=== PATIENT | female | born 1960 | race Caucasian/White ===

== ENCOUNTER 2017-02-24 22:38 | Emergency (ER) | payer MEDICAID ==
[~2017-02-24] VITALS: Ht 170.2 cm; Wt 84.4 kg
[~2017-02-24 22:38] MED LIST: ALB18R INH; ALB6.7R INH; ALBU2.5V36 INH; AMLO-5 PO; AMLO-98 PO; AMLO-99 PO; ASPI81TA94 PO; ATOR20TA22 PO; ATOR20TA65 PO; AZIT1PAC21 PO; CEF300 PO; CHOL500050 PO; CLIN300C99 PO; DIA2 PO; DIAZ2TAB74 PO; DILT120C72 PO; DOXY-179 PO; ENA10 PO; ERYT400T73 PO; FERR325C2 PO; FERR325T24 PO; FLUC150T40 PO; GLIM1TAB25 PO; HYDR-385 PO; KET10 PO; LEV125 PO; LEVO-3 PO; LEVO-317 PO; LEVO100T95 PO; LEVO137T23 PO; LEVO150T78 PO; MET500 PO; OMEP-153 PO; OXYGENHOME INH; PER PO; SITA100T PO; SITA100T9 PO; SITA1TAB17 PO; SITA1TBM PO; SITA25TA PO; TELM80TA5 PO; TIO18R INH
[2017-02-24] MEDS ORDERED: ESCI20TA38 PO (22:48)
--- NOTE | 2017-02-24 22:51 | ER Report ---
History and Physical Time Seen By MD: 22:50 Hx. of Stated Complaint: PT REPORTS HAVING A HEARTBURN SENSATION. HAS LONG HISTORY OF ANXIETY CAUSING HER ISSUES. JUST STARTED ON LEXAPRO YESTERDAY. HPI/ROS CHIEF COMPLAINT: chest pressure that feels like reflux, came on after becoming anxious HISTORY OF PRESENT ILLNESS: This is a 56 year old female. She is here because of feeling of lower chest pain that feels like anxiety and reflux. History of severe anxiety, worse in the evenings. Similar tonight, started having panic attack and anxiety. Has just been started on Lexapro. Tried some valium which did not help. Then started getting reflux and chest pressure. This is a typical progression of symptoms for her. Mild shortness of breath with all of this. No nausea. No recent illness. She used to take Nexium, but does not have any at this time. REVIEW OF SYSTEMS: Constitutional: No fever or chills. Eyes: No vision changes. ENT: No sore throat. No congestion. Cardiovascular: As above. No palpitations. Respiratory: As above. Gastrointestinal: No abdominal pain. No change in bowels Genitourinary: No dysuria. No changes in urination. Neurological: No dizziness. Allergies: Coded Allergies: Penicillins (Verified Allergy, Intermediate, HIVES, 02/24/17) oxycodone HCl (Verified Allergy, Mild, FELT SHE WAS GOING BLIND, 02/24/17) Sulfa (Sulfonamide Antibiotics) (Verified Allergy, Unknown, 02/24/17) doxycycline (Verified Allergy, Unknown, increased icp, 02/24/17) ketorolac tromethamine (Verified Adverse Reaction, Unknown, FELT BAD, DIFFICULTY SEEING, 02/24/17) Uncoded Allergies: ARTIFICIAL SWEETNERS (Allergy, Severe, MIGRAINES, 11/18/12) due to neurologist instructions ANTIDEPRESSANTS (Adverse Reaction, Intermediate, STRANGE BEHAVIOR, 11/18/12) STEROIDS (Adverse Reaction, Mild, CANNOT TAKE DUE TO HER PSEUDO TUMOR CEREBRI, 05/18/12) Home Meds Active Scripts Ranitidine Hcl (RANITIDINE HCL) 150 Mg Tablet, 150 MG PO BID, #60 TAB 0 Refills Prov:ALVIN SMYTH MD 02/24/17 Atorvastatin Calcium (ATORVASTATIN CALCIUM) 20 Mg Tablet, 1 TAB PO QDAY, #90 TAB 1 Refill Prov:PRESLEY BARTLETT MD 09/24/16 Sitagliptin Phosphate (JANUVIA) 25 Mg Tablet, 25 MG PO QDAY, #30 TAB 4 Refills Prov:PRESLEY BARTLETT MD 09/24/16 Cholecalciferol (Vitamin D3) (VITAMIN D3) 50,000 Unit Capsule, 20446 UNIT PO QWEEK, #12 CAPSULE 3 Refills Prov:PRESLEY BARTLETT MD 09/18/16 Diazepam (DIAZEPAM) 2 Mg Tablet, 2 MG PO QDAY Y for anxiety, #30 TAB 1 Refill Prov:PRESLEY BARTLETT MD 09/10/16 Amlodipine Besylate (AMLODIPINE BESYLATE) 10 Mg Tablet, 1 TAB PO QDAY, #90 TAB 3 Refills Prov:PRESLEY BARTLETT MD 06/25/16 Telmisartan (MICARDIS) 80 Mg Tablet, 80 MG PO QDAY, #90 TAB 3 Refills Prov:PRESLEY BARTLETT MD 06/25/16 Oxygen (OXYGEN) Inha, 2 L INH QDAY, #2 L Lenght of need: 99 months portable oxygen oxygen concentrator Prov:KYM HILARIO APRN [employer] 03/29/15 Reported Medications Escitalopram Oxalate (LEXAPRO) 20 Mg Tablet, 20 MG PO QDAY, TAB 02/24/17 Levothyroxine Sodium (LEVOTHYROXINE SODIUM) 100 Mcg Tablet, 125 MCG PO QDAY, TAB 01/06/17 Aspirin (ASPIRIN) 81 Mg Tab.chew, 81 MG PO QDAY, TAB.CHEW TAKE 1 TABLET BY MOUTH EVERY DAY 08/17/13 Discontinued Scripts Doxycycline Hyclate (DOXYCYCLINE HYCLATE) 100 Mg Tablet, 100 MG PO BID, #14 TAB Prov:ANGELA DIAZ UPSETTER SETTER UP 01/22/17 Albuterol Sulfate (VENTOLIN HFA) 18 Gm Inh, 2 PUFF INH Q6H Y for SHORTNESS OF BREATH, #1 INH 6 Refills Prov:PRESLEY BARTLETT MD 06/26/16 Albuterol Sulfate 0.083% (ALBUTEROL SULFATE 0.083%) 2.5 Mg/3 Ml Vial.neb, 2.5 MG INH QID Y for SHORTNESS OF BREATH, #100 INH 3 Refills Prov:PRESLEY BARTLETT MD 04/02/16 Reviewed Nurses Notes: Yes Smoking Status: Current: Every Day Smoker Hx Substance Use Disorder: No Hx Alcohol Use: No Constitutional Vital Sign - Last 24 Hours 02/24/17 02/24/17 02/24/17 02/24/17 22:45 22:45 23:00 23:15 Temp 98.5 Pulse 92 99 79 73 Resp 8 9 25 11 B/P (MAP) 175/87 137/76 (96) Pulse Ox 93 93 93 93 O2 Delivery Nasal Cannula 02/24/17 23:30 Pulse 71 Resp 13 B/P (MAP) 127/71 (89) Pulse Ox 91 Physical Exam General Appearance: The patient is alert. No acute distress. Eyes: Pupils are equal, round. No pallor, injection or icterus. ENT: Mucous membranes are moist. Normal oral mucosa. Posterior oropharynx is normal. Neck: Supple and non tender. No lymphadenopathy. Respiratory: Lungs are clear to auscultation. Cardiovascular: Regular rate and rhythm. No murmurs, gallops or rubs. Normal capillary refill. Gastrointestinal: Abdomen is soft and non tender. Nondistended. Normal active bowel sounds. Neurological: Alert and oriented x3. Skin: Warm and dry. Musculoskeletal: Extremities are nontender. No tenderness in palpation of the cervical, thoracic and lumbar spine. DIFFERENTIAL DIAGNOSIS: After history and physical exam, differential diagnosis was considered for chest pain including but not limited to myocardial ischemia, chest wall pain, pleural inflammation and pulmonary infectious causes. Although likely panic attack/anxiety followed by reflux which is her typical symptomatology. Medical Decision Making Data Points Result Diagram: 02/24/17 22502/24/17 2250 Laboratory Hematology Test 02/24/17 22:50 Red Blood Count 4.66 M/uL (4.17-5.56) Mean Corpuscular Volume 85.8 fL (80.0-96.0) Mean Corpuscular Hemoglobin 28.3 pg (26.0-33.0) Mean Corpuscular Hemoglobin Concent 33.0 g/dL (32.0-36.0) Red Cell Distribution Width 15.1 % (11.5-14.5) Mean Platelet Volume 7.0 fL (7.2-11.1) Neutrophils (%) (Auto) 70.0 % (39.4-72.5) Lymphocytes (%) (Auto) 20.7 % (17.6-49.6) Monocytes (%) (Auto) 4.7 % (4.1-12.4) Eosinophils (%) (Auto) 3.3 % (0.4-6.7) Basophils (%) (Auto) 1.3 % (0.3-1.4) Nucleated RBC Relative Count (auto) 0.0 /100WBC Neutrophils # (Auto) 7.8 K/uL (2.0-7.4) Lymphocytes # (Auto) 2.3 K/uL (1.3-3.6) Monocytes # (Auto) 0.5 K/uL (0.3-1.0) Eosinophils # (Auto) 0.4 K/uL (0.0-0.5) Basophils # (Auto) 0.1 K/uL (0.0-0.1) Nucleated RBC Absolute Count (auto) 0.00 K/uL Peripheral Blood Smear No Y/N Sodium Level 135 mmol/L (137-145) Potassium Level 3.4 mmol/L (3.5-5.0) Chloride Level 96 mmol/L (98-107) Carbon Dioxide Level 28 mmol/L (22-31) Blood Urea Nitrogen 15 mg/dl (7-18) Creatinine 2.00 mg/dl (0.52-1.04) Glomerular Filtration Rate Calc 26.0 Random Glucose 168 mg/dl (75-110) Calcium Level 10.6 mg/dl (8.4-10.2) Total Bilirubin 0.5 mg/dl (0.2-1.3) Aspartate Amino Transf (AST/SGOT) 12 U/L (0-35) Alanine Aminotransferase (ALT/SGPT) 27 U/L (0-56) Alkaline Phosphatase 102 U/L (0-126) Troponin I < 0.012 ng/ml Total Protein 8.2 gm/dl (6.3-8.2) Albumin 4.3 g/dl (3.5-5.0) Chemistry Test 02/24/17 22:50 White Blood Count 11.1 k/uL (4.5-11.0) Red Blood Count 4.66 M/uL (4.17-5.56) Hemoglobin 13.2 g/dL (12.0-16.0) Hematocrit 40.0 % (34.0-47.0) Mean Corpuscular Volume 85.8 fL (80.0-96.0) Mean Corpuscular Hemoglobin 28.3 pg (26.0-33.0) Mean Corpuscular Hemoglobin Concent 33.0 g/dL (32.0-36.0) Red Cell Distribution Width 15.1 % (11.5-14.5) Platelet Count 431 K/uL (150-450) Mean Platelet Volume 7.0 fL (7.2-11.1) Neutrophils (%) (Auto) 70.0 % (39.4-72.5) Lymphocytes (%) (Auto) 20.7 % (17.6-49.6) Monocytes (%) (Auto) 4.7 % (4.1-12.4) Eosinophils (%) (Auto) 3.3 % (0.4-6.7) Basophils (%) (Auto) 1.3 % (0.3-1.4) Nucleated RBC Relative Count (auto) 0.0 /100WBC Neutrophils # (Auto) 7.8 K/uL (2.0-7.4) Lymphocytes # (Auto) 2.3 K/uL (1.3-3.6) Monocytes # (Auto) 0.5 K/uL (0.3-1.0) Eosinophils # (Auto) 0.4 K/uL (0.0-0.5) Basophils # (Auto) 0.1 K/uL (0.0-0.1) Nucleated RBC Absolute Count (auto) 0.00 K/uL Peripheral Blood Smear No Y/N Glomerular Filtration Rate Calc 26.0 Calcium Level 10.6 mg/dl (8.4-10.2) Total Bilirubin 0.5 mg/dl (0.2-1.3) Aspartate Amino Transf (AST/SGOT) 12 U/L (0-35) Alanine Aminotransferase (ALT/SGPT) 27 U/L (0-56) Alkaline Phosphatase 102 U/L (0-126) Troponin I < 0.012 ng/ml Total Protein 8.2 gm/dl (6.3-8.2) Albumin 4.3 g/dl (3.5-5.0) EKG/Imaging EKG Interpretation 12 lead EKG: Rhythm: normal sinus rhythm [place]: normal QRS: normal ST segments: normal Imaging CHEST SINGLE AP 02/24/2017 22:55 hours. HISTORY: Heartburn since 1600 and anxiety attack. History of COPD. Wears 3 L of oxygen at home. COMPARISON: 01/06/2017 and studies dating to 05/23/2009. TECHNIQUE: Portable AP view of the chest. FINDINGS: Tubes/lines/hardware: There are external chest leads. Pulmonary: There is linear atelectasis or scarring at the left mid and lower lung, unchanged. Right lung is clear. There is no pneumothorax or pleural effusion. Cardiomediastinal: Cardiac and mediastinal silhouettes are within normal limits. Bones/soft tissues: No acute osseous abnormality. The visible abdomen is normal. IMPRESSION: 1. Stable chest without acute process. Report Dictated By: Alessia Muro at 02/24/2017 11:28 PM ED Course/Re-evaluation Clinical Indication for ER IV: IV Access ED Course After the initial evaluation, this sounds like reflux and anxiety which is chronic for her. We did do an EKG which did not show any acute abnormalities. Chest x-ray was normal. Gave her Protonix and some Maalox as well as some aspirin. Symptoms seem to be improving until we started talking about results and she started to get anxious again. Recommended she continue on antacids but will try Zantac. Recommended follow-up with her primary care doctor. She will continue her Lexapro. I discussed having her starting doing some cognitive behavioral therapy to help with the anxiety and panic disorders and she will talk to her doctor about this. Decision to Disposition Date: Feb 24, 2017 Decision to Disposition Time: 23:50 Depart Departure Latest Vital Signs Vital Signs Date Time Temp Pulse Resp B/P (MAP) Pulse Ox O2 Delivery O2 Flow Rate FiO2 02/24/17 23:30 71 13 127/71 (89) 91 02/24/17 22:45 98.5 Nasal Cannula Impression: Primary Impression: Anxiety Additional Impression: GERD (gastroesophageal reflux disease) Condition: Improved Disposition: HOME OR SELF-CARE Referrals: JB JASMINE DO (PCP) New Scripts Ranitidine Hcl (RANITIDINE HCL) 150 Mg Tablet 150 MG PO BID, #60 TAB 0 Refills Prov: ALVIN SMYTH MD 02/24/17 Patient Instructions: Anxiety (ED), Gastroesophageal Reflux Disease (ED) Additional Instructions: Keep taking your Lexapro. Consider getting set up to do Cognitive Behavioral Therapy to help with your anxiety. For reflux, start Ranitidine (Zantac) 150mg twice a day. Follow-up with primary care for re-evaluation. Problem Qualifiers Additional Impression: GERD (gastroesophageal reflux disease) Esophagitis presence: esophagitis presence not specified Qualified Codes: K21.9 - Gastro-esophageal reflux disease without esophagitis ALVIN SMYTH MD Feb 24, 2017 22:51
[2017-02-24] MEDS ORDERED: MAG HYD/AL HYD/SIMETH 30ML UDC PO ONE (22:55)
[2017-02-24] MEDS ORDERED: ASPIRIN 81 MG CHEW PO ONE (22:55)
[2017-02-24] MEDS ORDERED: PANTOPRAZOLE SOD 40 MG IV VIAL IVP ONE (22:55)
[2017-02-24 23:03] LABS: PLATELET COUNT, AUTOMATED 431 K/uL (150-450)
[2017-02-24 23:30] VITALS: BP 127/71
--- NOTE | 2017-02-24 23:34 | RADIOLOGY IMAGING REPORT ---
FACILITY: [facility] PATIENT NAME: Malu Mora : 1960 MR: [id number] V: [id number] EXAM DATE: ORDERING PHYSICIAN: ALVIN SMYTH TECHNOLOGIST: Location: [facility] - [place] Patient: Malu Mora : 1960 Visit/Account:[id number] Date of Sevice: 02/24/2017 CHEST SINGLE AP 02/24/2017 22:55 hours. HISTORY: Heartburn since 1600 and anxiety attack. History of COPD. Wears 3 L of oxygen at home. COMPARISON: 01/06/2017 and studies dating to 05/23/2009. TECHNIQUE: Portable AP view of the chest. FINDINGS: Tubes/lines/hardware: There are external chest leads. Pulmonary: There is linear atelectasis or scarring at the left mid and lower lung, unchanged. Right l pankaj is clear. There is no pneumothorax or pleural effusion. Cardiomediastinal: Cardiac and mediastinal silhouettes are within normal limits. Bones/soft tissues: No acute osseous abnormality. The visible abdomen is normal. IMPRESSION: 1. Stable chest without acute process. Report Dictated By: Alessia Muro at 02/24/2017 11:28 PM Report E-Signed By: Alessia Muro at 02/24/2017 11:30 PM WSN:[id number]
[2017-02-24] MEDS ORDERED: RANI-318 PO (23:52)
--- NOTE | 2017-02-25 00:43 | EKG ---
FACILITY: [facility] - [place] PATIENT NAME: BETTY CALDERON : [id number] MR: [id number] V: [id number] EXAM DATE: ORDERING PHYSICIAN: ALVIN SMYTH TECHNOLOGIST: ROSITA Wilson Reason : CARDIAC Blood Pressure : / mmHG Vent. Rate : 085 BPM Atrial Rate : 085 BPM P-R Int : 190 ms QRS Dur : 104 ms QT Int : 408 ms P-R-T Axes : 066 066 061 degrees QTc Int : 485 ms Normal sinus rhythm Cannot rule out Anterior infarct , age undetermined Abnormal ECG When compared with ECG of 06-JAN-2017 18:08, Nonspecific T wave abnormality no longer evident in Lateral leads Confirmed by BLAYNE WEBER ([id number]) on 02/26/2017 1:20:39 AM Referred By: Confirmed By:BLAYNE WEBER
== END 2017-02-25 00:02 | disposition home or self-care (01) ==
LOC: ER 22:49
DX: F41.9 Anxiety disorder, unspecified (principal); K21.9 Gastro-esophageal reflux disease without esophagitis; R06.02 Shortness of breath
CPT/HCPCS: 71010; 84484; 85025; 90471; 93005; 99284; C9113; 82040; 82247; 82310; 82374; 82435; 82565; 82947; 84075; 84132; 84155; 84295; 84450; 84460; 84520

== ENCOUNTER 2017-03-04 16:51 | Emergency (ER) | payer MEDICAID ==
[~2017-03-04] VITALS: Ht 170.2 cm; Wt 82.1 kg
[~2017-03-04 16:51] MED LIST changes: -POTA20TA85 PO
--- NOTE | 2017-03-04 17:17 | ER Report ---
History and Physical Time Seen By MD: 17:16 Hx. of Stated Complaint: PT SENT HERE FROM DR'S OFFICE WITH POTASSIUM PROBLEM. HPI/ROS CHIEF COMPLAINT: Hypokalemia HISTORY OF PRESENT ILLNESS: 56-year-old female patient presents to emergency room with complaint of hypokalemia. Patient states that she had her lab work done earlier today and was called by her doctor's office just a few minutes prior to arrival that her know that her potassium is low. They wanted her to be evaluated for this. Patient states that she was called by her entry level mechanical engineer office. Patient states she's been feeling fine. She is overly concerned because they told her that this could be life-threatening. Patient states that she is feeling some chest pressure now she is in the emergency room. She denies any nausea, vomiting or diarrhea. Patient states that she has had several days were she's had more fluid intake than normal. She denies having any fevers, chills, nausea, vomiting or diarrhea. REVIEW OF SYSTEMS: Respiratory: No cough, no dyspnea. Cardiovascular: As noted above. Gastrointestinal: No vomiting, no abdominal pain. Musculoskeletal: No back pain. Allergies: Coded Allergies: Penicillins (Verified Allergy, Intermediate, HIVES, 03/04/17) oxycodone HCl (Verified Allergy, Mild, FELT SHE WAS GOING BLIND, 03/04/17) Sulfa (Sulfonamide Antibiotics) (Verified Allergy, Unknown, 03/04/17) doxycycline (Verified Allergy, Unknown, increased icp, 03/04/17) ketorolac tromethamine (Verified Adverse Reaction, Unknown, FELT BAD, DIFFICULTY SEEING, 03/04/17) Uncoded Allergies: ARTIFICIAL SWEETNERS (Allergy, Severe, MIGRAINES, 11/18/12) due to neurologist instructions ANTIDEPRESSANTS (Adverse Reaction, Intermediate, STRANGE BEHAVIOR, 11/18/12) STEROIDS (Adverse Reaction, Mild, CANNOT TAKE DUE TO HER PSEUDO TUMOR CEREBRI, 05/18/12) Home Meds Active Scripts Potassium Chloride (KLOR-CON M20) 20 Meq Tab.er.prt, 20 MEQ PO BID, #30 TAB.SR Prov:ANGELA DIAZ 03/04/17 Ranitidine Hcl (RANITIDINE HCL) 150 Mg Tablet, 150 MG PO BID, #60 TAB 0 Refills Prov:ALVIN SMYTH MD 02/24/17 Atorvastatin Calcium (ATORVASTATIN CALCIUM) 20 Mg Tablet, 1 TAB PO QDAY, #90 TAB 1 Refill Prov:PRESLEY BARTLETT MD 09/24/16 Sitagliptin Phosphate (JANUVIA) 25 Mg Tablet, 25 MG PO QDAY, #30 TAB 4 Refills Prov:PRESLEY BARTLETT MD 09/24/16 Cholecalciferol (Vitamin D3) (VITAMIN D3) 50,000 Unit Capsule, 55313 UNIT PO QWEEK, #12 CAPSULE 3 Refills Prov:PRESLEY BARTLETT MD 09/18/16 Diazepam (DIAZEPAM) 2 Mg Tablet, 2 MG PO QDAY Y for anxiety, #30 TAB 1 Refill Prov:PRESLEY BARTLETT MD 09/10/16 Amlodipine Besylate (AMLODIPINE BESYLATE) 10 Mg Tablet, 1 TAB PO QDAY, #90 TAB 3 Refills Prov:PRESLEY BARTLETT MD 06/25/16 Telmisartan (MICARDIS) 80 Mg Tablet, 80 MG PO QDAY, #90 TAB 3 Refills Prov:PRESLEY BARTLETT MD 06/25/16 Oxygen (OXYGEN) Inha, 2 L INH QDAY, #2 L Lenght of need: 99 months portable oxygen oxygen concentrator Prov:KYM HILARIO APRN [employer]ATH M[employer]ER-C 03/29/15 Reported Medications Levothyroxine Sodium (LEVOTHYROXINE SODIUM) 100 Mcg Tablet, 125 MCG PO QDAY, TAB 01/06/17 Aspirin (ASPIRIN) 81 Mg Tab.chew, 81 MG PO QDAY, TAB.CHEW TAKE 1 TABLET BY MOUTH EVERY DAY 08/17/13 Discontinued Reported Medications Escitalopram Oxalate (LEXAPRO) 20 Mg Tablet, 20 MG PO QDAY, TAB 02/24/17 Past Medical/Surgical History Patient has a past medical history of migraines, irregular heartbeat, hyperlipidemia, asthma, COPD, cholecystitis, degenerative disc disease and back and neck, pseudotumor cerebri, diabetes, hypothyroidism, anxiety. Patient has surgical history of tonsillectomy, adenoidectomy, left knee surgery , cholecystectomy. Patient has a family medical history of CAD, stroke, diabetes. Reviewed Nurses Notes: Yes Smoking Status: Current: Every Day Smoker Hx Substance Use Disorder: No Hx Alcohol Use: No Constitutional Vital Sign - Last 24 Hours 1/06/1603/04/17 03/04/17 03/04/17 16:55 17:00 17:12 17:15 Temp 98.4 Pulse 74 Resp 14 B/P (MAP) 167/76 (106) 161/74 (103) 161/74 136/70 (92) Pulse Ox 93 O2 Delivery Room Air 03/04/17 03/04/17 03/04/17 03/04/17 17:21 17:30 17:45 17:47 Pulse 65 Resp 9 B/P (MAP) 147/78 (101) 143/69 (93) Pulse Ox 93 O2 Flow Rate 2.0 03/04/17 03/04/17 03/04/17 03/04/17 17:51 17:56 18:00 18:26 Pulse 70 69 ??? Resp 23 7 B/P (MAP) 132/66 (88) Pulse Ox 90 92 03/04/17 03/04/17 03/04/17 03/04/17 18:30 18:56 19:00 19:26 Pulse 65 71 Resp 8 13 B/P (MAP) 138/74 (95) 144/77 (99) Pulse Ox 93 92 03/04/17 19:30 B/P (MAP) 146/72 (96) Physical Exam General Appearance: The patient is alert, has no immediate need for airway protection and no current signs of toxicity. Patient is anxious ENT: Tympanic membranes are pearly-gomez, auditory canals are patent, mucous membranes are moist. Respiratory: Chest is non tender, lungs are clear to auscultation. Cardiac: regular rate and rhythm Gastrointestinal: Abdomen is soft and non tender, no masses, bowel sounds normal. Musculoskeletal: Neck: Neck is supple and non tender. Extremities have full range of motion and are non tender. Skin: No rashes or lesions. DIFFERENTIAL DIAGNOSIS: After history and physical exam differential diagnosis was considered for hypokalemia, incorrect lab value, overly diuresed secondary to her fluid consumption. Medical Decision Making Data Points Result Diagram: 03/04/170 03/04/17 1740 Laboratory Hematology Test 03/04/17 17:40 Red Blood Count 4.64 M/uL (4.17-5.56) Mean Corpuscular Volume 84.4 fL (80.0-96.0) Mean Corpuscular Hemoglobin 28.3 pg (26.0-33.0) Mean Corpuscular Hemoglobin Concent 33.5 g/dL (32.0-36.0) Red Cell Distribution Width 15.3 % (11.5-14.5) Mean Platelet Volume 6.9 fL (7.2-11.1) Neutrophils (%) (Auto) 76.1 % (39.4-72.5) Lymphocytes (%) (Auto) 15.5 % (17.6-49.6) Monocytes (%) (Auto) 5.8 % (4.1-12.4) Eosinophils (%) (Auto) 1.5 % (0.4-6.7) Basophils (%) (Auto) 1.1 % (0.3-1.4) Nucleated RBC Relative Count (auto) 0.0 /100WBC Neutrophils # (Auto) 7.9 K/uL (2.0-7.4) Lymphocytes # (Auto) 1.6 K/uL (1.3-3.6) Monocytes # (Auto) 0.6 K/uL (0.3-1.0) Eosinophils # (Auto) 0.2 K/uL (0.0-0.5) Basophils # (Auto) 0.1 K/uL (0.0-0.1) Nucleated RBC Absolute Count (auto) 0.00 K/uL Peripheral Blood Smear Yes Y/N Sodium Level 137 mmol/L (137-145) Potassium Level 2.7 mmol/L (3.5-5.0) Chloride Level 97 mmol/L (98-107) Carbon Dioxide Level 27 mmol/L (22-31) Blood Urea Nitrogen 15 mg/dl (7-18) Creatinine 2.00 mg/dl (0.52-1.04) Glomerular Filtration Rate Calc 26.0 Random Glucose 126 mg/dl (75-110) Calcium Level 9.8 mg/dl (8.4-10.2) Magnesium Level 2.0 mg/dl (1.7-2.2) Total Bilirubin 0.4 mg/dl (0.2-1.3) Aspartate Amino Transf (AST/SGOT) 13 U/L (0-35) Alanine Aminotransferase (ALT/SGPT) 24 U/L (0-56) Alkaline Phosphatase 96 U/L (0-126) Troponin I < 0.012 ng/ml Total Protein 7.9 gm/dl (6.3-8.2) Albumin 4.2 g/dl (3.5-5.0) Chemistry Test 03/04/17 17:40 White Blood Count 10.4 k/uL (4.5-11.0) Red Blood Count 4.64 M/uL (4.17-5.56) Hemoglobin 13.1 g/dL (12.0-16.0) Hematocrit 39.1 % (34.0-47.0) Mean Corpuscular Volume 84.4 fL (80.0-96.0) Mean Corpuscular Hemoglobin 28.3 pg (26.0-33.0) Mean Corpuscular Hemoglobin Concent 33.5 g/dL (32.0-36.0) Red Cell Distribution Width 15.3 % (11.5-14.5) Platelet Count 429 K/uL (150-450) Mean Platelet Volume 6.9 fL (7.2-11.1) Neutrophils (%) (Auto) 76.1 % (39.4-72.5) Lymphocytes (%) (Auto) 15.5 % (17.6-49.6) Monocytes (%) (Auto) 5.8 % (4.1-12.4) Eosinophils (%) (Auto) 1.5 % (0.4-6.7) Basophils (%) (Auto) 1.1 % (0.3-1.4) Nucleated RBC Relative Count (auto) 0.0 /100WBC Neutrophils # (Auto) 7.9 K/uL (2.0-7.4) Lymphocytes # (Auto) 1.6 K/uL (1.3-3.6) Monocytes # (Auto) 0.6 K/uL (0.3-1.0) Eosinophils # (Auto) 0.2 K/uL (0.0-0.5) Basophils # (Auto) 0.1 K/uL (0.0-0.1) Nucleated RBC Absolute Count (auto) 0.00 K/uL Peripheral Blood Smear Yes Y/N Glomerular Filtration Rate Calc 26.0 Calcium Level 9.8 mg/dl (8.4-10.2) Magnesium Level 2.0 mg/dl (1.7-2.2) Total Bilirubin 0.4 mg/dl (0.2-1.3) Aspartate Amino Transf (AST/SGOT) 13 U/L (0-35) Alanine Aminotransferase (ALT/SGPT) 24 U/L (0-56) Alkaline Phosphatase 96 U/L (0-126) Troponin I < 0.012 ng/ml Total Protein 7.9 gm/dl (6.3-8.2) Albumin 4.2 g/dl (3.5-5.0) EKG/Imaging EKG Interpretation 12 lead EKG: Rhythm: normal sinus rhythm [place]: normal QRS: normal ST segments: normal Imaging INDICATION: wheezing in the bases. DATE: 03/04/2017 6:39 PM. TECHNIQUE: CHEST PA AND LAT COMPARISON: February 24, 2017. FINDINGS: Heart size is normal. No effusion, consolidation, or pneumothorax. Mild hyperinflation. IMPRESSION: Mild hyperinflation. No focal pneumonia. Report Dictated By: Denver Rao MD at 03/04/2017 6:39 PM Report E-Signed By: Denver Rao MD at 03/04/2017 6:40 PM ED Course/Re-evaluation ED Course Patient was admitted to an exam room, history and physical were obtained. Differential diagnoses were considered. On examination lungs have wheezes in the bases. Chest x-ray was ordered. A CBC, CMP, troponin, EKG were done. Patient had a critically low potassium of 2.7. She was treated here in the emergency room with 20 mEq IV as well as 20 mEq by mouth. Patient will be started on 20 mEq twice a day. She is to get her lab redrawn on Wednesday as previously scheduled. She is to watch her fluid intake. I was talking with patient about possible causes of this. Patient states that for several issues drinking upwards of 5 bottles of water a day. She states that typically she drinks 2 bottles of water. I believe that is likely the underlying cause. We will go ahead and discharge patient home at this time. Patient verbalized understanding and agreement. Decision to Disposition Date: Mar 04, 2017 Decision to Disposition Time: 20:37 Depart Departure Latest Vital Signs Vital Signs Date Time Temp Pulse Resp B/P (MAP) Pulse Ox O2 Delivery O2 Flow Rate FiO2 03/04/17 19:30 146/72 (96) 03/04/17 19:26 71 13 92 03/04/17 17:47 2.0 03/04/17 17:12 98.4 Room Air Impression: Primary Impression: Hypokalemia Condition: Improved Disposition: HOME OR SELF-CARE Referrals: JB JASMINE DO (PCP) New Scripts Potassium Chloride (KLOR-CON M20) 20 Meq Tab.er.prt 20 MEQ PO BID, #30 TAB.SR Prov: ANGELA DIAZ 03/04/17 Patient Instructions: Hypokalemia (ED) Additional Instructions: Continue with normal fluid intake, as you described 2 bottles. Have lab work redrawn on Wednesday as previously directed. Return to the ER if condition worsens. Follow up with Amairani Duckworth as directed. Follow up with Dr. Moscsoo on the as previously scheduled. Continue with normal diet and activity. ANGELA DIAZ Mar 04, 2017 17:17
[2017-03-04] MEDS ORDERED: LORazepam 2 MG/ML VIAL IVP ONE (17:30)
--- NOTE | 2017-03-04 17:39 | EKG ---
FACILITY: [facility] PATIENT NAME: BETTY CALDERON : [id number] MR: [id number] V: [id number] EXAM DATE: ORDERING PHYSICIAN: ANGELA DIAZ TECHNOLOGIST: JED Wilson Reason : DR REFERAL Blood Pressure : / mmHG Vent. Rate : 068 BPM Atrial Rate : 068 BPM P-R Int : 202 ms QRS Dur : 098 ms QT Int : 402 ms P-R-T Axes : 074 085 -63 degrees QTc Int : 427 ms Normal sinus rhythm with 1st degree AV block ST and T wave abnormality, consider inferior ischemia ST and T wave abnormality, consider anterolateral ischemia Abnormal ECG When compared with ECG of 24-FEB-2017 22:55, Inverted T waves have replaced nonspecific T wave abnormality in Inferior leads T wave inversion now evident in Anterolateral leads Confirmed by BLAYNE WEBER ([id number]) on 03/04/2017 8:05:06 PM Referred By: ANGELA Confirmed By:BLAYNE WEBER
[2017-03-04 17:55] LABS: PLATELET COUNT, AUTOMATED 429 K/uL (150-450)
[2017-03-04] MEDS ORDERED: NS(*) 0.9% 1000 ML BAG 1,000 ML IV ONE (18:30)
[2017-03-04] MEDS ORDERED: KCL (*) 20 MEQ/100 ML PREMIX 100 ML IV ONE (18:30)
--- NOTE | 2017-03-04 18:44 | RADIOLOGY IMAGING REPORT ---
FACILITY: [facility] [place] PATIENT NAME: Malu Mora : 1960 MR: [id number] V: [id number] EXAM DATE: ORDERING PHYSICIAN: ANGELA DIAZ TECHNOLOGIST: Location: [facility] Patient: Malu Mora : 1960 Visit/Account:[id number] Date of Sevice: 03/04/2017 INDICATION: wheezing in the bases. DATE: 03/04/2017 6:39 PM. TECHNIQUE: CHEST PA AND LAT COMPARISON: February 24, 2017. FINDINGS: Heart size is normal. No effusion, consolidation, or pneumothorax. Mild hyperinflation. IMPRESSION: Mild hyperinflation. No focal pneumonia. Report Dictated By: Denver Rao MD at 03/04/2017 6:39 PM Report E-Signed By: Denver Rao MD at 03/04/2017 6:40 PM WSN:[id number]
[2017-03-04] MEDS ORDERED: SIMETHICONE 80 MG CHEW CHEW ONE (19:40)
[2017-03-04 20:30] VITALS: BP 125/88
[2017-03-04] MEDS ORDERED: POTA20TA85 PO (20:39)
[2017-03-04] MEDS ORDERED: POTASSIUM CHL 20 MEQ TABCR PO ONE ×2 (20:40)
== END 2017-03-04 21:05 | disposition home or self-care (01) ==
LOC: ER 17:04
DX: E87.6 Hypokalemia (principal); F17.210 Nicotine dependence, cigarettes, uncomplicated; I44.0 Atrioventricular block, first degree; R94.31 Abnormal electrocardiogram [ECG] [EKG]
CPT/HCPCS: 71046; 83735; 84484; 85025; 93005; 96365; 96366; 96375; 99284; J2060; J3480; J7030; 36415; 76536; 82040; 82247; 82306; 82310; 82374; 82435; 82565; 82570; 82947; 83970; 84075; 84100; 84132; 84155; 84156; 84295; 84450; 84460; 84520

== ENCOUNTER → 2017-03-04 | Outpatient (CLI) | payer MEDICAID ==
[~2017-03-04] MED LIST changes: +ESCI20TA38 PO; +POTA20TA85 PO; +RANI-318 PO
--- NOTE | 2017-03-04 15:04 | RADIOLOGY IMAGING REPORT ---
[place] [facility] [place] Malu Mora : 1960 MR: [id number] V: [id number] EXAM DATE: ORDERING PHYSICIAN: JB JASMINE TECHNOLOGIST: Location: Patient: Malu Mora : 1960 Visit/Account:[id number] Date of Sevice: 03/04/2017 THYROID HISTORY: Right thyroidectomy, hypothyroidism COMPARISON: July 14, 2013 FINDINGS: SIZE: Right lobe: Surgically removed Left lobe: 4.3 x 1.9 x 2.2 cm Isthmus: 5 mm PARENCHYMA: Diffusely heterogeneous NODULES: * Left lobe: * The left lobe appears extremely heterogeneous although discrete nodules are not demonstrated Isthmus: * None discrete. VASCULARITY: Within normal limits. ADDITIONAL FINDINGS: None. IMPRESSION: Post surgical changes from a right ran- thyroidectomy The left lobe appears extremely heterogeneous although discrete nodules not demonstrated REFERENCE: 2015 [place] [employer] Management Guidelines for Adult Patients with Thyroid Nodules and D ifferentiated Thyroid Cancer: The [place] [employer] Guidelines Task Force on Thyroid Nodul es and Differentiated Thyroid Cancer. SONOGRAPHIC PATTERNS: * Benign: Purely cystic nodules (no solid component); estimated risk of malignancy <1 percent; no bi opsy recommended. * Very Low Suspicion: Spongiform or partially cystic nodules without any of the sonographic features described in low, intermediate, or high suspicion patterns; estimated risk of malignancy <3 percent; consider FNA at > 2 cm (Observation without FNA is also a reasonable option). * Low Suspicion: Isoechoic or hyperechoic solid nodule, or partially cystic nodule with eccentric so lid areas, without microcalcification, irregular margin or ETE (extra-thyroidal extension), or taller than wide shape; estimated risk of malignancy 5-10 percent; recommend FNA at >1.5 cm. * Intermediate Suspicion: Hypoechoic solid nodule with smooth margins without microcalcifications, E TE (extra-thyroidal extension), or taller than wide shape; estimated risk of malignancy 10-20 percent ; recommend FNA at > 1 cm. * High Suspicion: Solid hypoechoic nodule or solid hypoechoic component of a partially cystic nodule with one or more of the following features: irregular margins (infiltrative, microlobulated), microc alcifications, taller than wide shape, rim calcifications with small extrusive soft tissue component, evidence of ETE (extra-thyroidal extension); estimated risk of malignancy >70-90 percent; recommend FNA at > 1 cm. NOTES: * Although a sonographically suspicious subcentimeter thyroid nodule without evidence of extrathyroi jennifer extension or sonographically suspicious lymph nodes may be observed with close sonographic follow -up rather than pursuing immediate FNA, patient age and preference may modify decision-making. A > 50% interval increase in nodule volume and/or development of new suspicious sonographic features are felt to be a valid reasons for potential re-aspiration of a nodule previously shown to have benig n FNA cytology. Report Dictated By: Clau Coyne MD at 03/04/2017 2:57 PM Report E-Signed By: Clau Coyne MD at 03/04/2017 2:59 PM GISELAN:MONICA
== END ==
LOC: US 13:24
PROVIDERS: ATTEND Family Medicine
DX: Z90.89 Acquired absence of other organs (principal); R93.7 Abnormal findings on diagnostic imaging of other parts of musculoskeletal system
CPT/HCPCS: 76536

== ENCOUNTER → 2017-03-04 | Outpatient (CLI) | payer MEDICAID ==
[2017-03-04 15:14] LABS: PLATELET COUNT, AUTOMATED 440 K/uL (150-450)
== END ==
LOC: LAB 13:27
PROVIDERS: ATTEND Internal Medicine Nephrology
DX: I12.9 Hypertensive chronic kidney disease with stage 1 through stage 4 chronic kidney disease, or unspecified chronic kidney disease (principal); N18.4 Chronic kidney disease, stage 4 (severe); D50.9 Iron deficiency anemia, unspecified; D47.3 Essential (hemorrhagic) thrombocythemia; D72.829 Elevated white blood cell count, unspecified
CPT/HCPCS: 36415; 82040; 82306; 82310; 82374; 82435; 82565; 82570; 82947; 83970; 84100; 84132; 84156; 84295; 84520; 85025

== ENCOUNTER → 2017-03-17 | Outpatient (CLI) | payer MEDICAID ==
[~2017-03-17] MED LIST changes: +POTA20TA85 PO
== END ==
LOC: LAB 15:22
PROVIDERS: ATTEND Internal Medicine Nephrology
DX: N18.4 Chronic kidney disease, stage 4 (severe) (principal); E78.6 Lipoprotein deficiency
CPT/HCPCS: 36415; 82310; 82374; 82435; 82565; 82947; 83735; 84132; 84295; 84520

== ENCOUNTER → 2017-03-27 | Outpatient (CLI) | payer MEDICAID ==
[~2017-03-27] MED LIST changes: +ALPR-429 PO; +OMEP-125 PO
== END ==
LOC: LAB 13:18
PROVIDERS: ATTEND Internal Medicine Nephrology
DX: N18.4 Chronic kidney disease, stage 4 (severe) (principal)
CPT/HCPCS: 36415; 84132

== ENCOUNTER 2017-03-30 04:39 | Emergency (ER) | payer MEDICAID ==
[~2017-03-30] VITALS: Ht 170.2 cm; Wt 82.2 kg
[~2017-03-30 04:39] MED LIST changes: -ALPR-429 PO; +LIDOCAINE 2% VISC SLN 15ML UDC PO ONE; +MAG HYD/AL HYD/SIMETH 30ML UDC PO ONE; -OMEP-125 PO
--- NOTE | 2017-03-30 04:51 | ER Report ---
History and Physical Time Seen By MD: 04:45 (YOLANDA GUIDO MD) HPI/ROS CHIEF COMPLAINT: Heart "racing" HISTORY OF PRESENT ILLNESS: 56-year-old female with history of anxiety, COPD and heartburn denies prior LA or stroke presents with substernal burning and feeling that heart is racing which awoke her from sleep just prior to arrival. Denies chest pain leg swelling shortness of breath fevers chills new, or other concerns. She reports she's been to the ER 6 times with similar symptoms and was treated for anxiety. REVIEW OF SYSTEMS: Constitutional: No fever, no chills. Eyes: No discharge. ENT: No sore throat. Cardiovascular: No syncope or presyncope Respiratory: No cough, no shortness of breath. Gastrointestinal: No abdominal pain, no vomiting. Genitourinary: No hematuria. Musculoskeletal: No back pain. Skin: No rashes. Neurological: No headache. (YOLANDA GUIDO MD) Allergies: Coded Allergies: Penicillins (Verified Allergy, Intermediate, HIVES, 03/30/17) oxycodone HCl (Verified Allergy, Mild, FELT SHE WAS GOING BLIND, 03/30/17) Sulfa (Sulfonamide Antibiotics) (Verified Allergy, Unknown, 03/30/17) doxycycline (Verified Allergy, Unknown, increased icp, 03/30/17) ketorolac tromethamine (Verified Adverse Reaction, Unknown, FELT BAD, DIFFICULTY SEEING, 03/30/17) Uncoded Allergies: ARTIFICIAL SWEETNERS (Allergy, Severe, MIGRAINES, 11/18/12) due to neurologist instructions ANTIDEPRESSANTS (Adverse Reaction, Intermediate, STRANGE BEHAVIOR, 11/18/12) STEROIDS (Adverse Reaction, Mild, CANNOT TAKE DUE TO HER PSEUDO TUMOR CEREBRI, 05/18/12) Home Meds Active Scripts Omeprazole (OMEPRAZOLE) 20 Mg Capsule.dr, 1 CAP PO BID, #60 TAB 0 Refills TAKE ONE CAPSULE BY MOUTH TWICE A DAY Prov:DILLON GARCIA MD 03/30/17 Alprazolam (XANAX) 0.5 Mg Tablet, 1 TAB PO QHS for anxiety, #5 TAB 0 Refills Prov:DILLON GARCIA MD 03/30/17 Atorvastatin Calcium (ATORVASTATIN CALCIUM) 20 Mg Tablet, 1 TAB PO QDAY, #90 TAB 1 Refill Prov:PRESLEY BARTLETT MD 09/24/16 Sitagliptin Phosphate (JANUVIA) 25 Mg Tablet, 25 MG PO QDAY, #30 TAB 4 Refills Prov:PRESLEY BARTLETT MD 09/24/16 Cholecalciferol (Vitamin D3) (VITAMIN D3) 50,000 Unit Capsule, 79821 UNIT PO QWEEK, #12 CAPSULE 3 Refills Prov:PRESLEY BARTLETT MD 09/18/16 Amlodipine Besylate (AMLODIPINE BESYLATE) 10 Mg Tablet, 1 TAB PO QDAY, #90 TAB 3 Refills Prov:PRESLEY BARTLETT MD 06/25/16 Telmisartan (MICARDIS) 80 Mg Tablet, 80 MG PO QDAY, #90 TAB 3 Refills Prov:PRESLEY BARTLETT MD 06/25/16 Oxygen (OXYGEN) Inha, 2 L INH QDAY, #2 L Lenght of need: 99 months portable oxygen oxygen concentrator Prov:KYM HILARIO APRN [employer]ICENCE EXAMINER-C 03/29/15 Reported Medications Levothyroxine Sodium (LEVOTHYROXINE SODIUM) 100 Mcg Tablet, 125 MCG PO QDAY, TAB 01/06/17 Aspirin (ASPIRIN) 81 Mg Tab.chew, 81 MG PO QDAY, TAB.CHEW TAKE 1 TABLET BY MOUTH EVERY DAY 08/17/13 Discontinued Scripts Potassium Chloride (KLOR-CON M20) 20 Meq Tab.er.prt, 20 MEQ PO BID, #30 TAB.SR Prov:ANGELA DIAZ MOTOR VEHICLE LICENCE EXAMINER 03/04/17 Ranitidine Hcl (RANITIDINE HCL) 150 Mg Tablet, 150 MG PO BID, #60 TAB 0 Refills Prov:ALVIN SMYTH MD 02/24/17 Diazepam (DIAZEPAM) 2 Mg Tablet, 2 MG PO QDAY Y for anxiety, #30 TAB 1 Refill Prov:PRESLEY BARTLETT MD 09/10/16 Smoking Status: Current: Every Day Smoker Hx Substance Use Disorder: No Hx Alcohol Use: No (YOLANDA GUIDO MD) Constitutional Vital Sign - Last 24 Hours 03/30/17 03/30/17 03/30/17 03/30/17 04:39 04:44 04:47 05:09 Pulse ??? 93 75 Resp 14 B/P (MAP) 170/84 (112) Pulse Ox 96 O2 Delivery Nasal Cannula 03/30/17 03/30/17 05:39 06:09 Pulse 66 65 Resp 13 15 Pulse Ox 93 94 (DILLON GARCIA MD) Physical Exam General Appearance: The patient is alert, has no immediate need for airway protection and no signs of toxicity. Appears mildly anxious otherwise no acute distress Eyes: Pupils equal and round no pallor or injection. ENT, Mouth: Mucous membranes are moist. Respiratory: There are no retractions, lungs are clear to auscultation. Cardiovascular: Regular rate and rhythm. No murmurs gallops or rubs Gastrointestinal: Abdomen is soft and non tender, no masses, bowel sounds normal. Neurological: Normal Skin: Warm and dry, no rashes. Musculoskeletal: Neck is supple non tender. Extremities are nontender, nonswollen and have full range of motion. No edema DIFFERENTIAL DIAGNOSIS: After history and physical exam differential diagnosis was considered for anxiety, panic disorder, gastroesophageal reflux, doubt acute coronary syndrome or LA doubt dissection (YOLANDA GUIDO MD) Medical Decision Making Data Points Result Diagram: 03/30/17 0450 03/30/17 0450 Laboratory Hematology Test 03/30/17 04:50 03/30/17 06:35 Red Blood Count 4.55 M/uL (4.17-5.56) Mean Corpuscular Volume 85.9 fL (80.0-96.0) Mean Corpuscular Hemoglobin 28.7 pg (26.0-33.0) Mean Corpuscular Hemoglobin Concent 33.3 g/dL (32.0-36.0) Red Cell Distribution Width 15.3 % (11.5-14.5) Mean Platelet Volume 7.6 fL (7.2-11.1) Neutrophils (%) (Auto) 82.6 % (39.4-72.5) Lymphocytes (%) (Auto) 11.4 % (17.6-49.6) Monocytes (%) (Auto) 3.4 % (4.1-12.4) Eosinophils (%) (Auto) 1.8 % (0.4-6.7) Basophils (%) (Auto) 0.8 % (0.3-1.4) Nucleated RBC Relative Count (auto) 0.0 /100WBC Neutrophils # (Auto) 11.1 K/uL (2.0-7.4) Lymphocytes # (Auto) 1.5 K/uL (1.3-3.6) Monocytes # (Auto) 0.5 K/uL (0.3-1.0) Eosinophils # (Auto) 0.2 K/uL (0.0-0.5) Basophils # (Auto) 0.1 K/uL (0.0-0.1) Nucleated RBC Absolute Count (auto) 0.00 K/uL Sodium Level 138 mmol/L (137-145) Potassium Level 3.5 mmol/L (3.5-5.0) Chloride Level 101 mmol/L (98-107) Carbon Dioxide Level 21 mmol/L (22-31) Blood Urea Nitrogen 19 mg/dl (7-18) Creatinine 2.00 mg/dl (0.52-1.04) Glomerular Filtration Rate Calc 26.0 Random Glucose 137 mg/dl (75-110) Calcium Level 10.3 mg/dl (8.4-10.2) Total Bilirubin 0.5 mg/dl (0.2-1.3) Aspartate Amino Transf (AST/SGOT) 11 U/L (0-35) Alanine Aminotransferase (ALT/SGPT) 26 U/L (0-56) Alkaline Phosphatase 93 U/L (0-126) B-Type Natriuretic Peptide 20 pg/ml (0-100) Total Protein 8.3 gm/dl (6.3-8.2) Albumin 4.5 g/dl (3.5-5.0) Troponin I < 0.012 ng/ml Chemistry Test 03/30/17 04:50 03/30/17 06:35 White Blood Count 13.4 k/uL (4.5-11.0) Red Blood Count 4.55 M/uL (4.17-5.56) Hemoglobin 13.0 g/dL (12.0-16.0) Hematocrit 39.1 % (34.0-47.0) Mean Corpuscular Volume 85.9 fL (80.0-96.0) Mean Corpuscular Hemoglobin 28.7 pg (26.0-33.0) Mean Corpuscular Hemoglobin Concent 33.3 g/dL (32.0-36.0) Red Cell Distribution Width 15.3 % (11.5-14.5) Platelet Count 460 K/uL (150-450) Mean Platelet Volume 7.6 fL (7.2-11.1) Neutrophils (%) (Auto) 82.6 % (39.4-72.5) Lymphocytes (%) (Auto) 11.4 % (17.6-49.6) Monocytes (%) (Auto) 3.4 % (4.1-12.4) Eosinophils (%) (Auto) 1.8 % (0.4-6.7) Basophils (%) (Auto) 0.8 % (0.3-1.4) Nucleated RBC Relative Count (auto) 0.0 /100WBC Neutrophils # (Auto) 11.1 K/uL (2.0-7.4) Lymphocytes # (Auto) 1.5 K/uL (1.3-3.6) Monocytes # (Auto) 0.5 K/uL (0.3-1.0) Eosinophils # (Auto) 0.2 K/uL (0.0-0.5) Basophils # (Auto) 0.1 K/uL (0.0-0.1) Nucleated RBC Absolute Count (auto) 0.00 K/uL Glomerular Filtration Rate Calc 26.0 Calcium Level 10.3 mg/dl (8.4-10.2) Total Bilirubin 0.5 mg/dl (0.2-1.3) Aspartate Amino Transf (AST/SGOT) 11 U/L (0-35) Alanine Aminotransferase (ALT/SGPT) 26 U/L (0-56) Alkaline Phosphatase 93 U/L (0-126) B-Type Natriuretic Peptide 20 pg/ml (0-100) Total Protein 8.3 gm/dl (6.3-8.2) Albumin 4.5 g/dl (3.5-5.0) Troponin I < 0.012 ng/ml (DILLON GARCIA MD) EKG/Imaging EKG Interpretation Normal sinus rhythm rate of 77 normal LA QRS and QTc intervals no ST or T-wave changes to suggest ischemia or infarction my read. (YOLANDA GUIDO MD) ED Course/Re-evaluation ED Course 03/30/2017 5:14:08 am plan of care was agreed upon (YOLANDA GUIDO MD) ED Course 03/30/2017 7:09:47 am repeat troponin again is negative. Plan will be discharged home; diagnosis will be anxiety we'll give a prescription for short course of Xanax as needed for anxiety attacks. We'll encourage patient to follow -up with her primary care provider Decision to Disposition Date: Mar 30, 2017 Decision to Disposition Time: 07:09 Turned Over Accepted care of patient at 7 AM briefly patient came in last evening complaining of palpitations and some shortness of breath. She has had 6 prior ED visits for similar symptoms that have been ultimately diagnosed as anxiety. Patient had initial troponin was unremarkable and a normal EKG plan is to repeat a troponin, if unremarkable we'll discharge home with structures to follow-up with primary care provider. (DILLON GARCIA MD) Depart Departure Latest Vital Signs Vital Signs Date Time Temp Pulse Resp B/P (MAP) Pulse Ox O2 Delivery O2 Flow Rate FiO2 03/30/17 06:09 65 15 94 03/30/17 04:47 170/84 (112) 03/30/17 04:44 Nasal Cannula (DILLON GARCIA MD) Impression: Primary Impression: Anxiety about health Additional Impressions: Chronic renal insufficiency COPD (chronic obstructive pulmonary disease) Condition: Improved Disposition: HOME OR SELF-CARE Referrals: JB JASMINE DO (PCP) 1 Week New Scripts Omeprazole (OMEPRAZOLE) 20 Mg Capsule.dr 1 CAP PO BID, #60 TAB 0 Refills TAKE ONE CAPSULE BY MOUTH TWICE A DAY Prov: DILLON GARCIA MD 03/30/17 Alprazolam (XANAX) 0.5 Mg Tablet 1 TAB PO QHS for anxiety, #5 TAB 0 Refills Prov: DILLON GARCIA MD 03/30/17 Patient Instructions: Anxiety (ED) Problem Qualifiers Additional Impressions: Chronic renal insufficiency Chronic kidney disease stage: unspecified stage Qualified Codes: N18.9 - Chronic kidney disease, unspecified COPD (chronic obstructive pulmonary disease) COPD type: unspecified COPD Qualified Codes: J44.9 - Chronic obstructive pulmonary disease, unspecified YOLANDA GUIDO MD Mar 30, 2017 04:51 DILLON GARCIA MD Mar 30, 2017 07:09
[2017-03-30] MEDS ORDERED: ALPRAZolam 0.25 MG TAB PO ONE (05:10)
[2017-03-30] MEDS ORDERED: ATRO/SCOPOL/HYOSCY/PB 5 ML ELX PO ONE (05:10)
--- NOTE | 2017-03-30 05:12 | EKG ---
FACILITY: [facility] PATIENT NAME: BETTY CALDERON : [id number] MR: [id number] V: [id number] EXAM DATE: ORDERING PHYSICIAN: YOLANDA GUIDO TECHNOLOGIST: ROSITA Wilson Reason : CARDIAC Blood Pressure : / mmHG Vent. Rate : 077 BPM Atrial Rate : 077 BPM P-R Int : 192 ms QRS Dur : 098 ms QT Int : 392 ms P-R-T Axes : 076 072 075 degrees QTc Int : 443 ms Sinus rhythm Probable left atrial enlargement Poor R wave progression anteriorly Nonspecific ST-T findings Confirmed by ANTHONY ARREDONDO ([id number]) on 03/31/2017 3:36:29 PM Referred By: Confirmed By:ANTHONY ARREDONDO
[2017-03-30 05:20] LABS: PLATELET COUNT, AUTOMATED 460 K/uL (150-450)
--- NOTE | 2017-03-30 05:34 | RADIOLOGY IMAGING REPORT ---
FACILITY: [facility] PATIENT NAME: Malu Mora : 1960 MR: [id number] V: [id number] EXAM DATE: ORDERING PHYSICIAN: YOLANDA GUIDO TECHNOLOGIST: Location: [facility] Patient: Malu Mora : 1960 Visit/Account:[id number] Date of Sevice: 03/30/2017 CHEST SINGLE AP HISTORY: Wheezing COMPARISON: 03/04/2017 FINDINGS: Cardiomediastinal contours: Normal Lungs and pleura: Bilateral perihilar streaky airspace disease consistent with atelectasis. Lungs are hyperexpanded. No edema. No pneumothorax. Bones/soft tissues: Normal Other findings: None significant IMPRESSION: 1. Streaky bilateral perihilar airspace disease likely atelectasis. Report Dictated By: Rogelio Morel MD at 03/30/2017 5:29 AM Report E-Signed By: Rogelio Morel MD at 03/30/2017 5:30 AM WSN:[id number]
[2017-03-30] MEDS ORDERED: NS(*) 0.9% 1000 ML BAG 1,000 ML IV ONE (05:55)
[2017-03-30] MEDS ORDERED: ALPR-429 PO (07:12)
[2017-03-30 07:16] VITALS: BP 126/96
[2017-03-30] MEDS ORDERED: OMEP-125 PO (07:17)
== END 2017-03-30 07:20 | disposition home or self-care (01) ==
LOC: ER 04:41
DX: F06.4 Anxiety disorder due to known physiological condition (principal); N18.9 Chronic kidney disease, unspecified; J44.9 Chronic obstructive pulmonary disease, unspecified; R06.2 Wheezing
CPT/HCPCS: 71045; 83880; 84484; 85025; 93005; 96360; 99284; J7030; 82040; 82247; 82310; 82374; 82435; 82565; 82947; 84075; 84132; 84155; 84295; 84450; 84460; 84520

== ENCOUNTER 2017-04-03 12:48 | Emergency (ER) | payer MEDICAID ==
[~2017-04-03 12:48] MED LIST changes: +ALPR-429 PO; -LIDOCAINE 2% VISC SLN 15ML UDC PO ONE; -MAG HYD/AL HYD/SIMETH 30ML UDC PO ONE; +OMEP-125 PO
--- NOTE | 2017-04-03 12:53 | ER Report ---
History and Physical Time Seen By MD: 12:53 HPI/ROS CHIEF COMPLAINT: Chest pressure HISTORY OF PRESENT ILLNESS: 56-year-old female patient presents to emergency room with complaint of chest pressure, dizziness especially when she stands up and heartburn especially at nighttime. She states that this been going on for the past several days. She states that she's not had any nausea, vomiting or diarrhea. She states that she's been eating and drinking normally. She states that she has had her potassium changed by her primary care provider. She states she's noticed some tingling around her lips. She states that she was started on antibiotics due to recent illness. She denies having any shortness of breath with activity, pain in the left arm, worsening chest pressure. She states she does have significant amounts of mucus production. She states that the mucus is become very thick and she's not able to clear it out. She has not taken any medication for this. REVIEW OF SYSTEMS: Respiratory: No cough, no dyspnea. Cardiovascular: As noted above Gastrointestinal: No vomiting, no abdominal pain. Musculoskeletal: No back pain. Allergies: Coded Allergies: Penicillins (Verified Allergy, Intermediate, HIVES, 03/30/17) oxycodone HCl (Verified Allergy, Mild, FELT SHE WAS GOING BLIND, 03/30/17) Sulfa (Sulfonamide Antibiotics) (Verified Allergy, Unknown, 03/30/17) doxycycline (Verified Allergy, Unknown, increased icp, 03/30/17) ketorolac tromethamine (Verified Adverse Reaction, Unknown, FELT BAD, DIFFICULTY SEEING, 03/30/17) Uncoded Allergies: ARTIFICIAL SWEETNERS (Allergy, Severe, MIGRAINES, 11/18/12) due to neurologist instructions ANTIDEPRESSANTS (Adverse Reaction, Intermediate, STRANGE BEHAVIOR, 11/18/12) STEROIDS (Adverse Reaction, Mild, CANNOT TAKE DUE TO HER PSEUDO TUMOR CEREBRI, 05/18/12) Home Meds Active Scripts Omeprazole (OMEPRAZOLE) 20 Mg Capsule.dr, 1 CAP PO BID, #60 TAB 0 Refills TAKE ONE CAPSULE BY MOUTH TWICE A DAY Prov:DILLON GARCIA MD 03/30/17 Alprazolam (XANAX) 0.5 Mg Tablet, 1 TAB PO QHS for anxiety, #5 TAB 0 Refills Prov:DILLON GARCIA MD 03/30/17 Atorvastatin Calcium (ATORVASTATIN CALCIUM) 20 Mg Tablet, 1 TAB PO QDAY, #90 TAB 1 Refill Prov:PRESLEY BARTLETT MD 09/24/16 Sitagliptin Phosphate (JANUVIA) 25 Mg Tablet, 25 MG PO QDAY, #30 TAB 4 Refills Prov:PRESLEY BARTLETT MD 09/24/16 Cholecalciferol (Vitamin D3) (VITAMIN D3) 50,000 Unit Capsule, 85196 UNIT PO QWEEK, #12 CAPSULE 3 Refills Prov:PRESLEY BARTLETT MD 09/18/16 Telmisartan (MICARDIS) 80 Mg Tablet, 80 MG PO QDAY, #90 TAB 3 Refills Prov:PRESLEY BARTLETT MD 06/25/16 Oxygen (OXYGEN) Inha, 2 L INH QDAY, #2 L Lenght of need: 99 months portable oxygen oxygen concentrator Prov:KYM HILARIO APRN FIELD TECH-C 03/29/15 Reported Medications Potassium Chloride (Klor-Con Sprinkle) 10 Meq Capsule.er, 10 MEQ PO BID 04/03/17 Azithromycin (ZITHROMAX) 250 Mg Tablet, 1 TAB PO QDAY, TAB 04/03/17 Levothyroxine Sodium (LEVOTHYROXINE SODIUM) 100 Mcg Tablet, 125 MCG PO QDAY, TAB 01/06/17 Aspirin (ASPIRIN) 81 Mg Tab.chew, 81 MG PO QDAY, TAB.CHEW TAKE 1 TABLET BY MOUTH EVERY DAY 08/17/13 Discontinued Scripts Amlodipine Besylate (AMLODIPINE BESYLATE) 10 Mg Tablet, 1 TAB PO QDAY, #90 TAB 3 Refills Prov:PRESLEY BARTLETT MD 06/25/16 Potassium Chloride (KLOR-CON M20) 20 Meq Tab.er.prt, 20 MEQ PO BID, #30 TAB.SR Prov:ANGELA DIAZ FIELD TECH 03/04/17 Ranitidine Hcl (RANITIDINE HCL) 150 Mg Tablet, 150 MG PO BID, #60 TAB 0 Refills Prov:ALVIN SMYTH MD 02/24/17 Diazepam (DIAZEPAM) 2 Mg Tablet, 2 MG PO QDAY Y for anxiety, #30 TAB 1 Refill Prov:PRESLEY BARTLETT MD 09/10/16 Past Medical/Surgical History Patient has a past medical history of migraines, irregular heartbeat, hyperlipidemia, asthma, cholecystitis, back pain, pseudotumor cerebri, diabetes , hypothyroidism, anxiety. Patient has surgical history of tonsillectomy, adenoidectomy, left knee surgery , cholecystectomy. Patient has a family medical history of CAD, stroke, diabetes. Reviewed Nurses Notes: Yes Smoking Status: Current: Every Day Smoker Hx Substance Use Disorder: No Hx Alcohol Use: No Constitutional Vital Sign - Last 24 Hours 04/03/17 04/03/17 04/03/17 04/03/17 12:53 13:22 13:30 13:45 Temp 98.7 Pulse 75 65 65 68 75 Resp 24 B/P (MAP) 154/80 135/79 (97) 130/75 (93) 113/72 (86) Pulse Ox 91 93 95 O2 Delivery Room Air 04/03/17 04/03/17 14:00 14:12 Pulse 66 B/P (MAP) 132/65 (87) Pulse Ox 95 94 Physical Exam General Appearance: The patient is alert, has no immediate need for airway protection and no current signs of toxicity. ENT: Tympanic membranes are pearly-gomez, auditory canals are patent, mucus mucous membranes are moist. Patient does have a very minimal amount of mucus in the right nostril. Respiratory: Chest is non tender, lungs are clear to auscultation. Cardiac: regular rate and rhythm Gastrointestinal: Abdomen is soft and non tender, no masses, bowel sounds normal. Musculoskeletal: Neck: Neck is supple and non tender. Extremities have full range of motion and are non tender. Skin: No rashes or lesions. DIFFERENTIAL DIAGNOSIS: After history and physical exam differential diagnosis was considered for orthostatic blood pressure, chronic renal failure, [place], anxiety. Medical Decision Making Data Points Result Diagram: 04/03/17 1313 04/03/17 1313 Laboratory Hematology Test 04/03/17 13:05 04/03/17 13:13 Influenza Virus Type A (PCR) Negative (NEGATIVE) Influenza Virus Type B (PCR) Negative (NEGATIVE) Red Blood Count 4.20 M/uL (4.17-5.56) Mean Corpuscular Volume 84.9 fL (80.0-96.0) Mean Corpuscular Hemoglobin 28.4 pg (26.0-33.0) Mean Corpuscular Hemoglobin Concent 33.5 g/dL (32.0-36.0) Red Cell Distribution Width 15.1 % (11.5-14.5) Mean Platelet Volume 7.2 fL (7.2-11.1) Neutrophils (%) (Auto) 76.4 % (39.4-72.5) Lymphocytes (%) (Auto) 16.7 % (17.6-49.6) Monocytes (%) (Auto) 4.9 % (4.1-12.4) Eosinophils (%) (Auto) 0.9 % (0.4-6.7) Basophils (%) (Auto) 1.1 % (0.3-1.4) Nucleated RBC Relative Count (auto) 0.0 /100WBC Neutrophils # (Auto) 9.8 K/uL (2.0-7.4) Lymphocytes # (Auto) 2.1 K/uL (1.3-3.6) Monocytes # (Auto) 0.6 K/uL (0.3-1.0) Eosinophils # (Auto) 0.1 K/uL (0.0-0.5) Basophils # (Auto) 0.1 K/uL (0.0-0.1) Nucleated RBC Absolute Count (auto) 0.00 K/uL Sodium Level 137 mmol/L (137-145) Potassium Level 3.0 mmol/L (3.5-5.0) Chloride Level 99 mmol/L (98-107) Carbon Dioxide Level 24 mmol/L (22-31) Blood Urea Nitrogen 13 mg/dl (7-18) Creatinine 1.80 mg/dl (0.52-1.04) Glomerular Filtration Rate Calc 29.3 Random Glucose 109 mg/dl (75-110) Calcium Level 9.5 mg/dl (8.4-10.2) Total Bilirubin 0.4 mg/dl (0.2-1.3) Aspartate Amino Transf (AST/SGOT) 11 U/L (0-35) Alanine Aminotransferase (ALT/SGPT) 26 U/L (0-56) Alkaline Phosphatase 83 U/L (0-126) Troponin I < 0.012 ng/ml Total Protein 7.7 gm/dl (6.3-8.2) Albumin 4.1 g/dl (3.5-5.0) Chemistry Test 04/03/17 13:05 04/03/17 13:13 Influenza Virus Type A (PCR) Negative (NEGATIVE) Influenza Virus Type B (PCR) Negative (NEGATIVE) White Blood Count 12.8 k/uL (4.5-11.0) Red Blood Count 4.20 M/uL (4.17-5.56) Hemoglobin 11.9 g/dL (12.0-16.0) Hematocrit 35.6 % (34.0-47.0) Mean Corpuscular Volume 84.9 fL (80.0-96.0) Mean Corpuscular Hemoglobin 28.4 pg (26.0-33.0) Mean Corpuscular Hemoglobin Concent 33.5 g/dL (32.0-36.0) Red Cell Distribution Width 15.1 % (11.5-14.5) Platelet Count 458 K/uL (150-450) Mean Platelet Volume 7.2 fL (7.2-11.1) Neutrophils (%) (Auto) 76.4 % (39.4-72.5) Lymphocytes (%) (Auto) 16.7 % (17.6-49.6) Monocytes (%) (Auto) 4.9 % (4.1-12.4) Eosinophils (%) (Auto) 0.9 % (0.4-6.7) Basophils (%) (Auto) 1.1 % (0.3-1.4) Nucleated RBC Relative Count (auto) 0.0 /100WBC Neutrophils # (Auto) 9.8 K/uL (2.0-7.4) Lymphocytes # (Auto) 2.1 K/uL (1.3-3.6) Monocytes # (Auto) 0.6 K/uL (0.3-1.0) Eosinophils # (Auto) 0.1 K/uL (0.0-0.5) Basophils # (Auto) 0.1 K/uL (0.0-0.1) Nucleated RBC Absolute Count (auto) 0.00 K/uL Glomerular Filtration Rate Calc 29.3 Calcium Level 9.5 mg/dl (8.4-10.2) Total Bilirubin 0.4 mg/dl (0.2-1.3) Aspartate Amino Transf (AST/SGOT) 11 U/L (0-35) Alanine Aminotransferase (ALT/SGPT) 26 U/L (0-56) Alkaline Phosphatase 83 U/L (0-126) Troponin I < 0.012 ng/ml Total Protein 7.7 gm/dl (6.3-8.2) Albumin 4.1 g/dl (3.5-5.0) EKG/Imaging EKG Interpretation 12 lead EKG: Rhythm: normal sinus rhythm with a ventricular rate of 67 bpm [place]: normal QRS: normal ST segments: normal EKG is unchanged when compared with EKG from March 30, 2017. Imaging 2 VIEWS CHEST INDICATION: Chest pain. Tach. COMPARISON: 03/30/2017 FINDINGS: There is improving midlung atelectasis bilaterally. Persistent ovoid opacity in the right midlung. This was not seen on a prior study of 03/04/2017. This may represent some atelectasis or even fluid along the right fissures. Lungs otherwise well aerated. No focal infiltrate. No effusion or pneumothorax. Heart size and mediastinal contours are normal. IMPRESSION: 1. Improving midlung atelectasis. 2. Suspected platelike atelectasis or trace fluid along the right minor fissure. Report Dictated By: Akin Griffith at 04/03/2017 1:58 PM Report E-Signed By: Akin Griffith at 04/03/2017 2:02 PM ED Course/Re-evaluation ED Course Patient was examined, history and physical were obtained. Differential diagnoses were considered. On examination lungs are clear, heart is regular. Orthostatic blood pressures were done which were unremarkable. A CBC, CMP, troponin, EKG, chest x-ray, influenza screen were done. The lab results were unremarkable. Patient had a creatinine of 1.8, which is actually improved from 2 on 30 March. Patient did have a mildly elevated white blood count with 12.4. However she is currently taking azithromycin according to the patient. Troponin was negative, EKG showed a normal sinus rhythm which was unchanged from 03/30/17. Chest x-ray was negative. I believe that she is dealing with some anxiety about her health. Talking with the patient the nurse found that she didn 't like the Xanax she was given. With patient having some postnasal drip and mucus production I could very well be the cause of her heartburn at nighttime. I believe that we will do is we will go ahead and have her take Mucinex twice a day with a full 8 ounces of water. She is to follow-up with her primary care provider in the next 3-4 days. She is to get plenty of rest, continue with normal activity levels and return to emergency room if condition worsens. Decision to Disposition Date: Apr 03, 2017 Decision to Disposition Time: 13:46 Depart Departure Latest Vital Signs Vital Signs Date Time Temp Pulse Resp B/P (MAP) Pulse Ox O2 Delivery O2 Flow Rate FiO2 04/03/17 14:12 94 04/03/17 14:00 66 132/65 (87) 04/03/17 12:53 98.7 24 Room Air Impression: Primary Impression: Anxiety about health Additional Impression: Sinus congestion Condition: Improved Disposition: HOME OR SELF-CARE Referrals: JB JASMINE DO (PCP) Patient Instructions: Anxiety (ED) Additional Instructions: Get plenty of rest over the weekend. Follow up with Dr. Jasmine in the next 3-4 days. Continue with your normal medications. You may consider taking Mucinex, 1 tab twice a day. It is an expectorant, which means that it makes the mucous absorb more water which makes it thinner and easier to get out. I think that this will help with the sinus congestion that you are having. Take with Dr. Jasmine about your fluid restriction and what exactly it is, also about concerns of sleep apnea. Return to the ER if condition worsens. Take Gas-X to help with the gas that you are having. Problem Qualifiers ANGELA DIAZ Apr 03, 2017 12:53
[2017-04-03 13:21] LABS: PLATELET COUNT, AUTOMATED 458 K/uL (150-450)
[2017-04-03] MEDS ORDERED: POTA10CA24 PO (13:58)
[2017-04-03] MEDS ORDERED: AZIT-1 PO (13:58)
[2017-04-03 14:00] VITALS: BP 132/65
--- NOTE | 2017-04-03 14:07 | RADIOLOGY IMAGING REPORT ---
FACILITY: [facility] [place] PATIENT NAME: Malu Mora : 1960 MR: [id number] V: [id number] EXAM DATE: ORDERING PHYSICIAN: ANGELA DIAZ TECHNOLOGIST: Location: [facility] Patient: Malu Mora : 1960 Visit/Account:[id number] Date of Sevice: 04/03/2017 2 VIEWS CHEST INDICATION: Chest pain. Tach. COMPARISON: 03/30/2017 FINDINGS: There is improving midlung atelectasis bilaterally. Persistent ovoid opacity in the right midlung. Th is was not seen on a prior study of 03/04/2017. This may represent some atelectasis or even fluid along the right fissures. Lungs otherwise well aerated. No focal infiltrate. No effusion or pneumothorax. Heart size and mediastinal contours are normal. IMPRESSION: 1. Improving midlung atelectasis. 2. Suspected platelike atelectasis or trace fluid along the right minor fissure. Report Dictated By: Akin Griffith at 04/03/2017 1:58 PM Report E-Signed By: Akin Griffith at 04/03/2017 2:02 PM WSN:[id number]
[2017-04-03] MEDS ORDERED: SIMETHICONE 80 MG CHEW CHEW ONE (14:15)
--- NOTE | 2017-04-03 16:28 | EKG ---
FACILITY: [facility] PATIENT NAME: BETTY CALDERON : [id number] MR: [id number] V: [id number] EXAM DATE: ORDERING PHYSICIAN: ANGELA DIAZ TECHNOLOGIST: SAMIRA Test Reason : CP Blood Pressure : / mmHG Vent. Rate : 069 BPM Atrial Rate : 069 BPM P-R Int : 186 ms QRS Dur : 100 ms QT Int : 424 ms P-R-T Axes : 000 066 032 degrees QTc Int : 454 ms Normal sinus rhythm ST abnormality, possible digitalis effect Abnormal ECG When compared with ECG of 30-MAR-2017 04:49, Previous ECG has undetermined rhythm, needs review Nonspecific T wave abnormality now evident in Inferior leads Nonspecific T wave abnormality no longer evident in Lateral leads Confirmed by YOANA MASCORRO ([id number]) on 04/03/2017 8:56:22 PM Referred By: JOSE Confirmed By:YOANA MASCORRO
== END 2017-04-03 14:22 | disposition home or self-care (01) ==
LOC: ER 12:53
DX: F41.9 Anxiety disorder, unspecified (principal); R09.81 Nasal congestion; R94.31 Abnormal electrocardiogram [ECG] [EKG]; J98.11 Atelectasis
CPT/HCPCS: 71046; 82040; 82247; 82310; 82374; 82435; 82565; 82947; 84075; 84132; 84155; 84295; 84450; 84460; 84484; 84520; 85025; 87502; 93005; 99284

== ENCOUNTER 2017-04-06 22:36 | Observation (INO) | payer MEDICAID ==
[~2017-04-06] VITALS: Ht 170.2 cm; Wt 81.7 kg
[~2017-04-06 22:36] MED LIST changes: +AZIT-1 PO; +POTA10CA24 PO
[2017-04-06] MEDS ORDERED: QUEtiapine FUM 25 MG TAB PO ONE (23:25)
[2017-04-07] MEDS ORDERED: KCL (*) 20 MEQ/100 ML PREMIX 100 ML IV ONE (00:05)
[2017-04-07] MEDS ORDERED: NS(*) 0.9% 1000 ML BAG 1,000 ML IV ONE (00:05)
--- NOTE | 2017-04-07 00:13 | ER Report ---
History and Physical Time Seen By MD: 22:45 (2-6-18) Hx. of Stated Complaint: PT. HERE FOR MULTIPLE COMPLAINTS, FEELS HER HEART IS RACING, TONGUE IS DRY, AND STATES SHE HAS HAD 3 BOTTLES OF WATER AND SHOULD BE ABLE TO PEE. HPI/ROS CHIEF COMPLAINT: Tingling around the neck and mouth HISTORY OF PRESENT ILLNESS: 56-year-old female presents with globus sensation and tingling around the neck and mouth associated with chest tingling and numbness. Thought it may be related to her anxiety and tried to Vistaril which did not help. She believes she is having allergic reaction to her oral potassium pills. No rash no tongue upper airway swelling and no wheezing. No other concerns or complaints today. REVIEW OF SYSTEMS: Constitutional: No fever, no chills. Eyes: No discharge. ENT: No sore throat. Cardiovascular: No chest pain, no palpitations. Respiratory: No cough, no shortness of breath. Gastrointestinal: No abdominal pain, no vomiting. Genitourinary: No hematuria. Musculoskeletal: No back pain. Skin: No rashes. Neurological: No headache. Allergies: Coded Allergies: Penicillins (Verified Allergy, Intermediate, HIVES, 03/30/17) oxycodone HCl (Verified Allergy, Mild, FELT SHE WAS GOING BLIND, 03/30/17) Sulfa (Sulfonamide Antibiotics) (Verified Allergy, Unknown, 03/30/17) doxycycline (Verified Allergy, Unknown, increased icp, 03/30/17) ketorolac tromethamine (Verified Adverse Reaction, Unknown, FELT BAD, DIFFICULTY SEEING, 03/30/17) Uncoded Allergies: ARTIFICIAL SWEETNERS (Allergy, Severe, MIGRAINES, 11/18/12) due to neurologist instructions ANTIDEPRESSANTS (Adverse Reaction, Intermediate, STRANGE BEHAVIOR, 11/18/12) STEROIDS (Adverse Reaction, Mild, CANNOT TAKE DUE TO HER PSEUDO TUMOR CEREBRI, 05/18/12) Home Meds Active Scripts Omeprazole (OMEPRAZOLE) 20 Mg Capsule.dr, 1 CAP PO BID, #60 TAB 0 Refills TAKE ONE CAPSULE BY MOUTH TWICE A DAY Prov:DILLON GARCIA MD 03/30/17 Alprazolam (XANAX) 0.5 Mg Tablet, 1 TAB PO QHS for anxiety, #5 TAB 0 Refills Prov:DILLON GARCIA MD 03/30/17 Atorvastatin Calcium (ATORVASTATIN CALCIUM) 20 Mg Tablet, 1 TAB PO QDAY, #90 TAB 1 Refill Prov:PRESLEY BARTLETT MD 09/24/16 Sitagliptin Phosphate (JANUVIA) 25 Mg Tablet, 25 MG PO QDAY, #30 TAB 4 Refills Prov:PRESLEY BARTLETT MD 09/24/16 Cholecalciferol (Vitamin D3) (VITAMIN D3) 50,000 Unit Capsule, 44516 UNIT PO QWEEK, #12 CAPSULE 3 Refills Prov:PRESLEY BARTLETT MD 09/18/16 Telmisartan (MICARDIS) 80 Mg Tablet, 80 MG PO QDAY, #90 TAB 3 Refills Prov:PRESLEY BARTLETT MD 06/25/16 Oxygen (OXYGEN) Inha, 2 L INH QDAY, #2 L Lenght of need: 99 months portable oxygen oxygen concentrator Prov:KYM HILARIO APRN NAILING MACHINE OPERATOR-C 03/29/15 Reported Medications Potassium Chloride (Klor-Con Sprinkle) 10 Meq Capsule.er, 10 MEQ PO BID 04/03/17 Azithromycin (ZITHROMAX) 250 Mg Tablet, 1 TAB PO QDAY, TAB 04/03/17 Levothyroxine Sodium (LEVOTHYROXINE SODIUM) 100 Mcg Tablet, 125 MCG PO QDAY, TAB 01/06/17 Aspirin (ASPIRIN) 81 Mg Tab.chew, 81 MG PO QDAY, TAB.CHEW TAKE 1 TABLET BY MOUTH EVERY DAY 08/17/13 Discontinued Scripts Amlodipine Besylate (AMLODIPINE BESYLATE) 10 Mg Tablet, 1 TAB PO QDAY, #90 TAB 3 Refills Prov:PRESLEY BARTLETT MD 06/25/16 Smoking Status: Current: Every Day Smoker Hx Substance Use Disorder: No Hx Alcohol Use: No Constitutional Vital Sign - Last 24 Hours 04/06/17 22:45 Temp 98.4 Pulse 77 Resp 20 B/P (MAP) 153/74 Pulse Ox 96 O2 Delivery Room Air Physical Exam General Appearance: The patient is alert, has no immediate need for airway protection and no signs of toxicity. No acute distress she appears frustrated Eyes: Pupils equal and round no pallor or injection. ENT, Mouth: Mucous membranes are moist. Respiratory: There are no retractions, lungs are clear to auscultation. Cardiovascular: Regular rate and rhythm. No murmurs gallops or rubs Gastrointestinal: Abdomen is soft and non tender, no masses, bowel sounds normal. Neurological: Normal gross exam Skin: Warm and dry, no rashes. Musculoskeletal: Neck is supple non tender. Extremities are nontender, nonswollen and have full range of motion. No edema DIFFERENTIAL DIAGNOSIS: After history and physical exam differential diagnosis was considered for electrolyte disturbance, anxiety, palpitations, dysrhythmia no signs of acute coronary syndrome or dissection Medical Decision Making Data Points Result Diagram: 04/06/17 2336 Laboratory Hematology Test 04/06/17 23:36 Sodium Level 130 mmol/L (137-145) Potassium Level 2.4 mmol/L (3.5-5.0) Chloride Level 93 mmol/L (98-107) Carbon Dioxide Level 24 mmol/L (22-31) Blood Urea Nitrogen 13 mg/dl (7-18) Creatinine 1.90 mg/dl (0.52-1.04) Glomerular Filtration Rate Calc 27.5 Random Glucose 117 mg/dl (75-110) Calcium Level 9.3 mg/dl (8.4-10.2) Chemistry Test 04/06/17 23:36 Glomerular Filtration Rate Calc 27.5 Calcium Level 9.3 mg/dl (8.4-10.2) ED Course/Re-evaluation ED Course Low potassium discussed with the patient who agrees to stay for further care I discussed the patient with Dr. Hein who agrees with plan for admission Decision to Disposition Date: Apr 07, 2017 Decision to Disposition Time: 00:11 Depart Departure Latest Vital Signs Vital Signs Date Time Temp Pulse Resp B/P (MAP) Pulse Ox O2 Delivery O2 Flow Rate FiO2 04/06/17 22:45 98.4 77 20 153/74 96 Room Air Impression: Primary Impression: Hypokalemia Condition: Improved Disposition: Admitted from ER Referrals: JB JASMINE DO (PCP) YOLANDA GUIDO MD Apr 07, 2017 00:13
[2017-04-07 00:21] LABS: PLATELET COUNT, AUTOMATED 439 K/uL (150-450)
[2017-04-07 01:24] VITALS: BP 141/74
[2017-04-07] MEDS ORDERED: CHOL10005 PO (02:01)
[2017-04-07] MEDS ORDERED: INSULIN HUM LISPRO 100 UN/ML 3 ML VIAL SUBQ PRN (02:10)
--- NOTE | 2017-04-07 02:22 | History & Physical ---
History of Present Illness Chief Complaint Palpitations and tingling around mouth History of Present Illness This patient presented to the emergency room complaining of palpitations and tingling around the mouth and lips. She has presented to the emergency room several times over the past month with similar symptoms. She has been found to have hypokalemia, and was prescribed several different potassium supplements. However, the patient reports that she has been unable to take oral medications because they make her sick to the stomach. History Problems: (1) Iron (Fe) deficiency anemia Status: Chronic (2) Type II diabetes mellitus Status: Chronic (3) Hyperlipidemia Status: Chronic (4) History of cholecystectomy Status: Chronic (5) History of colonoscopy Status: Chronic (6) Hypertension Status: Chronic (7) Hypothyroidism Status: Chronic Home Meds Active Scripts Omeprazole (OMEPRAZOLE) 20 Mg Capsule.dr, 1 CAP PO BID, #60 TAB 0 Refills TAKE ONE CAPSULE BY MOUTH TWICE A DAY Prov:DILLON GARCIA MD 03/30/17 Alprazolam (XANAX) 0.5 Mg Tablet, 1 TAB PO QHS for anxiety, #5 TAB 0 Refills Prov:DILLON GARCIA MD 03/30/17 Atorvastatin Calcium (ATORVASTATIN CALCIUM) 20 Mg Tablet, 1 TAB PO QDAY, #90 TAB 1 Refill Prov:PRESLEY BARTLETT MD 09/24/16 Sitagliptin Phosphate (JANUVIA) 25 Mg Tablet, 25 MG PO QDAY, #30 TAB 4 Refills Prov:PRESLEY BARTLETT MD 09/24/16 Telmisartan (MICARDIS) 80 Mg Tablet, 80 MG PO QDAY, #90 TAB 3 Refills Prov:PRESLEY BARTLETT MD 06/25/16 Oxygen (OXYGEN) Inha, 2 L INH QDAY, #2 L Lenght of need: 99 months portable oxygen oxygen concentrator Prov:KYM HILARIO APRN COMMERCIAL MAINTENANCE TECHNICIAN-C 03/29/15 Reported Medications Cholecalciferol (Vitamin D3) (VITAMIN D3) 1,000 Unit Tablet, 1000 UNIT PO, TAB Pt states that she only takes once a month and did last on 04/01/2017 04/07/17 Potassium Chloride (Klor-Con Sprinkle) 10 Meq Capsule.er, 10 MEQ PO BID 04/03/17 Levothyroxine Sodium (LEVOTHYROXINE SODIUM) 100 Mcg Tablet, 125 MCG PO QDAY, TAB 01/06/17 Aspirin (ASPIRIN) 81 Mg Tab.chew, 81 MG PO QDAY, TAB.CHEW TAKE 1 TABLET BY MOUTH EVERY DAY 08/17/13 Discontinued Reported Medications Azithromycin (ZITHROMAX) 250 Mg Tablet, 1 TAB PO QDAY, TAB 04/03/17 Discontinued Scripts Cholecalciferol (Vitamin D3) (VITAMIN D3) 50,000 Unit Capsule, 31708 UNIT PO QWEEK, #12 CAPSULE 3 Refills Prov:PRESLEY BARTLETT MD 09/18/16 Amlodipine Besylate (AMLODIPINE BESYLATE) 10 Mg Tablet, 1 TAB PO QDAY, #90 TAB 3 Refills Prov:PRESLEY BARTLETT MD 06/25/16 Allergies: Coded Allergies: Penicillins (Verified Allergy, Intermediate, HIVES, 03/30/17) oxycodone HCl (Verified Allergy, Mild, FELT SHE WAS GOING BLIND, 03/30/17) Sulfa (Sulfonamide Antibiotics) (Verified Allergy, Unknown, 03/30/17) doxycycline (Verified Allergy, Unknown, increased icp, 03/30/17) ketorolac tromethamine (Verified Adverse Reaction, Unknown, FELT BAD, DIFFICULTY SEEING, 03/30/17) Uncoded Allergies: ARTIFICIAL SWEETNERS (Allergy, Severe, MIGRAINES, 11/18/12) due to neurologist instructions ANTIDEPRESSANTS (Adverse Reaction, Intermediate, STRANGE BEHAVIOR, 11/18/12) STEROIDS (Adverse Reaction, Mild, CANNOT TAKE DUE TO HER PSEUDO TUMOR CEREBRI, 05/18/12) Patient History: FH: coronary artery bypass surgery MOTHER FH: diabetes mellitus MOTHER FH: hypertension MOTHER BROTHER OR SISTER BROTHER OR SISTER Smoking Status: Current: Every Day Smoker Caffeine Intake: Coffee Caffeine/Cups Per Day: 4 Hx Alcohol Use: No Hx Substance Use Disorder: No Social Drug Use: Currently Social Drugs: Marijuana Amount Of Social Drug/s Used: unsure Review of Systems All Systems Reviewed/Normal: Yes, Except as Noted Cardiovascular: Palpitations Exam Vital Signs Vital Signs Date Time Temp Pulse Resp B/P (MAP) Pulse Ox O2 Delivery O2 Flow Rate FiO2 04/07/17 01:24 97.8 83 16 141/74 (96) 96 Nasal Cannula 3.0 Neuro: No Gross deficits Eyes: PERRLA Cardiovascular: Regular Rate and Rhythm Respiratory: Clear to Auscultation GI: Abd Soft and Non-Tender Extremities: No Edema Integumentary: No Cyanosis Medical Decision Making Data Points Result Diagram: 04/07/17 0000 04/06/17 1916 Assessment and Plan Problems: (1) Hypokalemia Status: Acute Assessment & Plan: She has had a persistently low potassium level over the last month, but has been unable to tolerate oral supplements. She received a 20meq K-ridder in the emergency department and we have ordered an additional 40meq to be given. She has been placed on telemetry monitoring and a magnesium level has been ordered. Her troponin was negative. A repeat chemistry panel is ordered when the infusion is complete. (2) Essential hypertension Assessment & Plan: She is on chronic treatment with telmisartan. (3) Type II diabetes mellitus Status: Chronic Assessment & Plan: She is on chronic treatment with Januvia. We have also placed her on sliding scale level #1. (4) Chronic kidney disease (CKD) stage G4/A1, severely decreased glomerular filtration rate (GFR) between 15-29 mL/min/1.73 square meter and albuminuria creatinine ratio less than 30 mg/g Assessment & Plan: She is followed in the nephrology clinic. (5) Hypothyroidism *Optional Permanent Comment*: currently on Levoxyl 150mcg daily Last Edited By : Michela Bingham on Dec 29, 2013 13:55 Status: Chronic Assessment & Plan: She is on chronic treatment with Synthroid. Copies to: JB JASMINE DO Venous Thromboembolism Antithrombotics Is Pt On Any Antithrombotics?: No Exam Sepsis Risk: No Definite Risk YOANA MASCORRO DO Apr 07, 2017 02:22
[2017-04-07] MEDS: KCL (*) 20 MEQ/100 ML PREMIX 100 ML IV SCH ×2 (02:52→04:52)
[2017-04-07 04:54] VITALS: BP 133/70
[2017-04-07] MEDS ORDERED: LEVOTHYROXINE SOD 0.125 MG TAB PO SCH (06:00)
[2017-04-07 06:50] VITALS: BP 137/66
[2017-04-07] MEDS ORDERED: TELMISARTAN 40 MG TAB PO SCH (09:00)
[2017-04-07] MEDS ORDERED: ASPIRIN 81 MG CHEW PO SCH (09:00)
[2017-04-07 09:36] VITALS: Ht 170.2 cm; Wt 81.7 kg
[2017-04-07] MEDS ORDERED: INFLUENZA VIRUS VAC 0.5 ML SYR IM ONLY ONE (10:00)
[2017-04-07 10:56] VITALS: BP 115/71
--- NOTE | 2017-04-07 11:10 | Hospitalist Depart ---
Discharge Summary Reason for Hosp/Final Diag: (1) Hypokalemia Status: Acute Hospital Course & Plan: She has had a persistently low potassium level over the last month, but has been unable to tolerate oral supplements. She received a 20meq K-rider in the emergency department and an additional 40meq given on the floor. She has been on telemetry monitoring and a magnesium level has been ordered. Her troponin was negative. Potassium is near normal now. BMP/Mg tomorrow. She is followed by Nephrology who feel it is related to intestinal losses exacerbated by CKD. I spoke with a partner of Dr. Moscoso (Nephrology), that recommended she try taking the potassium with applesauce. He also recommended she eat foods high in potassium (i.e. avocados). (2) Essential hypertension Status: Chronic Hospital Course & Plan: She is on chronic treatment with telmisartan. (3) Type II diabetes mellitus Status: Chronic Hospital Course & Plan: She is on chronic treatment with Januvia. (4) Chronic kidney disease (CKD) stage G4/A1, severely decreased glomerular filtration rate (GFR) between 15-29 mL/min/1.73 square meter and albuminuria creatinine ratio less than 30 mg/g Hospital Course & Plan: She is followed in the nephrology clinic. (5) Hypothyroidism *Optional Permanent Comment*: currently on Levoxyl 150mcg daily Last Edited By : Michela Bingham on Dec 29, 2013 13:55 Status: Chronic Hospital Course & Plan: She is on chronic treatment with Synthroid. Departure Weight (Pounds): 180 Weight (Ounces): 3.0 Result Diagram: 04/07/17 0000 04/07/17904 Item Value Date Time White Blood Count 12.6 k/uL H 04/07/17 0000 Red Blood Count 4.09 M/uL L 04/07/17 0000 Hemoglobin 11.9 g/dL L 04/07/17 0000 Platelet Count 439 K/uL 04/07/17 0000 Neutrophils (%) (Auto) 73.7 % H 04/07/17 0000 Hematocrit 35.0 % 04/07/17 0000 Sodium Level 130 mmol/L L 04/06/172335 Potassium Level 2.4 mmol/L *L 04/06/172335 Sodium Level 139 mmol/L 2/7/18 0905 Potassium Level 3.2 mmol/L L 04/07/17 0905 Magnesium Level 1.8 mg/dl 04/07/17 0000 Troponin I < 0.012 ng/ml 04/06/17 2336 Creatinine 1.90 mg/dl H 04/06/17 2336 Creatinine 1.70 mg/dl H 04/07/17 0905 Condition: Improved Discharge: Home Discharge Instructions Home Meds Active Scripts Omeprazole (OMEPRAZOLE) 20 Mg Capsule.dr, 1 CAP PO BID, #60 TAB 0 Refills TAKE ONE CAPSULE BY MOUTH TWICE A DAY Prov:DILLON GARCIA MD 03/30/17 Atorvastatin Calcium (ATORVASTATIN CALCIUM) 20 Mg Tablet, 1 TAB PO QDAY, #90 TAB 1 Refill Prov:PRESLEY BARTLETT MD 09/24/16 Sitagliptin Phosphate (JANUVIA) 25 Mg Tablet, 25 MG PO QDAY, #30 TAB 4 Refills Prov:PRESLEY BARTLETT MD 09/24/16 Telmisartan (MICARDIS) 80 Mg Tablet, 80 MG PO QDAY, #90 TAB 3 Refills Prov:PRESLEY BARTLETT MD 06/25/16 Oxygen (OXYGEN) Inha, 2 L INH QDAY, #2 L Lenght of need: 99 months portable oxygen oxygen concentrator Prov:KYM HILARIO APRN PSYCHIATRIC THERAPIST-C 03/29/15 Reported Medications Cholecalciferol (Vitamin D3) (VITAMIN D3) 1,000 Unit Tablet, 1000 UNIT PO, TAB Pt states that she only takes once a month and did last on 04/01/2017 04/07/17 Potassium Chloride (Klor-Con Sprinkle) 10 Meq Capsule.er, 10 MEQ PO BID 04/03/17 Levothyroxine Sodium (LEVOTHYROXINE SODIUM) 100 Mcg Tablet, 125 MCG PO QDAY, TAB 01/06/17 Aspirin (ASPIRIN) 81 Mg Tab.chew, 81 MG PO QDAY, TAB.CHEW TAKE 1 TABLET BY MOUTH EVERY DAY 08/17/13 Discontinued Reported Medications Azithromycin (ZITHROMAX) 250 Mg Tablet, 1 TAB PO QDAY, TAB 04/03/17 Discontinued Scripts Alprazolam (XANAX) 0.5 Mg Tablet, 1 TAB PO QHS for anxiety, #5 TAB 0 Refills Prov:DILLON GARCIA MD 03/30/17 Cholecalciferol (Vitamin D3) (VITAMIN D3) 50,000 Unit Capsule, 71907 UNIT PO QWEEK, #12 CAPSULE 3 Refills Prov:PRESLEY BARTLETT MD 09/18/16 Amlodipine Besylate (AMLODIPINE BESYLATE) 10 Mg Tablet, 1 TAB PO QDAY, #90 TAB 3 Refills Prov:PRESLEY BARTLETT MD 06/25/16 Diet: Diabetic Activity: As Tolerated Special Instructions: BMP/Mg tomorrow Eat 2 bananas and avocados a day. Take your potassium supplement with appleasauce. Follow up with Dr. Moscoso as scheduled. Follow up with Aixa Willingham tomorrow. Copies to: AIXA WILLINGHAM PA-C; JON MOSCOSO MD; JB JASMINE DO Venous Thromboembolism Antithrombotics Is Pt On Any Antithrombotics?: No BLAYNE WEBER MD Apr 07, 2017 11:09
== END 2017-04-07 13:25 | disposition home or self-care (01) ==
LOC: ER 23:02 → MED 04-07 00:44 → INTOOBSV 04-07 00:44
PROVIDERS: ADMIT Family Medicine; ATTEND Family Medicine
DX: E87.6 Hypokalemia (principal); I13.10 Hypertensive heart and chronic kidney disease without heart failure, with stage 1 through stage 4 chronic kidney disease, or unspecified chronic kidney disease; E11.22 Type 2 diabetes mellitus with diabetic chronic kidney disease; N18.9 Chronic kidney disease, unspecified; E03.9 Hypothyroidism, unspecified
CPT/HCPCS: 36415; 36416; 82948; 83735; 84484; 85025; 93005; 96365; 99285; G0378; J3480; J7030; 82310; 82374; 82435; 82565; 82947; 84132; 84295; 84520

== ENCOUNTER 2017-04-25 08:51 | Observation (INO) | payer MEDICAID ==
[~2017-04-25] VITALS: Ht 170.2 cm; Wt 81.7 kg
[~2017-04-25 08:51] MED LIST changes: +CHOL10005 PO
--- NOTE | 2017-04-25 08:56 | ER Report ---
History and Physical Time Seen By MD: 08:55 HPI/ROS CHIEF COMPLAINT: Vomiting diarrhea, "numb" HISTORY OF PRESENT ILLNESS: Patient is a 57-year-old female who presents emergency department with complaint of vomiting, 2 episodes of watery diarrhea and just feeling run down and tired. She is also complaining of palpitations that occurred last evening. She denies actual chest pain but does admit to some epigastric discomfort she's had similar episodes in the past. She has a prior history of chronic kidney disease stage IV history of anxiety. REVIEW OF SYSTEMS: Constitutional: No fever, no chills. Eyes: No discharge. ENT: No sore throat. Cardiovascular: Palpitations no chest pain Respiratory: No cough, no shortness of breath. Gastrointestinal: Epigastric abdominal pain with nausea vomiting and diarrhea Genitourinary: No hematuria. Musculoskeletal: No back pain. Skin: No rashes. Neurological: No headache. Allergies: Coded Allergies: Penicillins (Verified Allergy, Intermediate, HIVES, 04/25/17) oxycodone HCl (Verified Allergy, Mild, FELT SHE WAS GOING BLIND, 04/25/17) Sulfa (Sulfonamide Antibiotics) (Verified Allergy, Unknown, 04/25/17) doxycycline (Verified Allergy, Unknown, increased icp, 04/25/17) ketorolac tromethamine (Verified Adverse Reaction, Unknown, FELT BAD, DIFFICULTY SEEING, 04/25/17) Uncoded Allergies: ARTIFICIAL SWEETNERS (Allergy, Severe, MIGRAINES, 11/18/12) due to neurologist instructions ANTIDEPRESSANTS (Adverse Reaction, Intermediate, STRANGE BEHAVIOR, 11/18/12) STEROIDS (Adverse Reaction, Mild, CANNOT TAKE DUE TO HER PSEUDO TUMOR CEREBRI, 05/18/12) Home Meds Active Scripts Atorvastatin Calcium (ATORVASTATIN CALCIUM) 20 Mg Tablet, 1 TAB PO QDAY, #90 TAB 1 Refill Prov:PRESLEY BARTLETT MD 09/24/16 Sitagliptin Phosphate (JANUVIA) 25 Mg Tablet, 25 MG PO QDAY, #30 TAB 4 Refills Prov:PRESLEY BARTLETT MD 09/24/16 Telmisartan (MICARDIS) 80 Mg Tablet, 80 MG PO QDAY, #90 TAB 3 Refills Prov:PRESLEY BARTLETT MD 06/25/16 Oxygen (OXYGEN) Inha, 2 L INH QDAY, #2 L Lenght of need: 99 months portable oxygen oxygen concentrator Prov:YANELISKYM RADHA PAINT DEPARTMENT SUPERVISOR-C 03/29/15 Reported Medications Ranitidine Hcl (ZANTAC) 150 Mg Tablet, 150 MG PO BID, TAB 04/25/17 Cholecalciferol (Vitamin D3) (VITAMIN D3) 1,000 Unit Tablet, 1000 UNIT PO, TAB Pt states that she only takes once a month and did last on 04/01/2017 04/07/17 Levothyroxine Sodium (LEVOTHYROXINE SODIUM) 100 Mcg Tablet, 125 MCG PO QDAY, TAB 01/06/17 Aspirin (ASPIRIN) 81 Mg Tab.chew, 81 MG PO QDAY, TAB.CHEW TAKE 1 TABLET BY MOUTH EVERY DAY 08/17/13 Discontinued Reported Medications Cholecalciferol (Vitamin D3) (VITAMIN D3) 1,000 Unit Tablet, 1000 UNIT PO, TAB 04/25/17 Potassium Chloride (Klor-Con Sprinkle) 10 Meq Capsule.er, 10 MEQ PO BID 04/03/17 Discontinued Scripts Omeprazole (OMEPRAZOLE) 20 Mg Capsule.dr, 1 CAP PO BID, #60 TAB 0 Refills TAKE ONE CAPSULE BY MOUTH TWICE A DAY Prov:DILLON GARCIA MD 03/30/17 Past Medical/Surgical History Past medical history for iron deficiency anemia, type II diabetes, hyperlipidemia, history of cholecystectomy, history of hypertension, history of hypothyroidism patient with recent admission in early April for hypo- ketonemia. Stage IV CKD Smoking Status: Current: Every Day Smoker Hx Substance Use Disorder: No Hx Alcohol Use: No Constitutional Vital Sign - Last 24 Hours 04/25/17 04/25/17 04/25/17 04/25/17 08:56 08:57 09:00 09:06 Temp 98.6 Pulse 96 89 Resp 16 13 B/P (MAP) 108/64 130/73 (92) 108/64 (79) Pulse Ox 94 94 O2 Delivery Nasal Cannula 04/25/17 04/25/17 04/25/17 04/25/17 09:21 09:30 09:36 09:51 Pulse 87 67 66 Resp 11 11 13 B/P (MAP) 109/63 (78) Pulse Ox 95 95 97 04/25/17 04/25/17 04/25/17 10:00 10:06 10:21 Pulse 66 Resp 20 17 B/P (MAP) 111/71 (84) Pulse Ox 97 Intake and Output 04/25/17 04/25/17 04/26/17 15:00 23:00 07:00 Intake Total 1000 ml Balance 1000 ml Physical Exam General/Constitutional: Patient is awake, alert, nontoxic and in no acute respiratory distress. Head: Normocephalic and atraumatic. Eyes: Conjunctival clear, Pupils are equal and reactive to light. Extraocular muscles are intact and symmetrical. Sclera are clear and anicteric. Ears:External canals are clear. Tympanic membranes are clear with normal landmarks and light reflex. Nares: No rhinorrhea or bleeding. Turbinates are pink and moist. Oropharyngeal: Mucous membranes are moist. There is no pharyngeal erythema or exudate. There are no palatal petechiae. Uvula is midline and symmetrical. Neck: Supple, no adenopathy. Cardiovascular: Heart is regular rate and rhythm without audible murmurs, rubs or gallops. Pulmonary: Lungs are clear to auscultation bilaterally. There are no wheezes, rales, or rhonchi. Chest rise is symmetrical Abdomen: Soft, nontender, no guarding or peritoneal signs. Extremities: No gross deformities, No peripheral cyanosis. Able to move all 4 extremities. Neuro: Alert and oriented X3, Cranial nerves 2 thru 12 are intact and symmetrical. Patient has normal gait. Skin: No rashes, skin is warm dry and well perfused. Medical Decision Making Data Points Result Diagram: 04/25/17 0920 04/25/17 0920 Laboratory Hematology Test 04/25/17 00:00 04/25/17 09:00 04/25/17 09:20 Urine Random Creatinine 268.0 mg/dl Urine Random Sodium 33 MEQ/L Magnesium Level 2.0 mg/dl (1.7-2.2) Troponin I < 0.012 ng/ml Urine Color Yellow Urine Clarity Slightly-cloudy Urine pH 5.0 pH (4.8-9.5) Urine Specific [place] 1.015 Urine Protein Negative mg/dL (NEGATIVE) Urine Glucose (UA) Negative mg/dL (NEGATIVE) Urine Ketones Negative mg/dL (NEGATIVE) Urine Blood Negative (NEGATIVE) Urine Nitrite Negative (NEGATIVE) Urine Bilirubin Negative (NEGATIVE) Urine Urobilinogen Negative mg/dL (0.2-1.9) Urine Leukocyte Esterase Negative (NEGATIVE) Urine RBC <1 /HPF (0-2/HPF) Urine WBC 3 /HPF (0-5/HPF) Urine Squamous Epithelial Cells Many /LPF (</=FEW) Urine Bacteria Negative /HPF (NONE-FEW) Urine Hyaline Casts Many /LPF (NONE-FEW) Urine Mucus Few /HPF (NONE-FEW) Red Blood Count 4.52 M/uL (4.17-5.56) Mean Corpuscular Volume 87.1 fL (80.0-96.0) Mean Corpuscular Hemoglobin 29.0 pg (26.0-33.0) Mean Corpuscular Hemoglobin Concent 33.3 g/dL (32.0-36.0) Red Cell Distribution Width 15.1 % (11.5-14.5) Mean Platelet Volume 8.0 fL (7.2-11.1) Neutrophils (%) (Auto) 86.0 % (39.4-72.5) Lymphocytes (%) (Auto) 8.1 % (17.6-49.6) Monocytes (%) (Auto) 4.7 % (4.1-12.4) Eosinophils (%) (Auto) 0.6 % (0.4-6.7) Basophils (%) (Auto) 0.6 % (0.3-1.4) Nucleated RBC Relative Count (auto) 0.0 /100WBC Neutrophils # (Auto) 12.2 K/uL (2.0-7.4) Lymphocytes # (Auto) 1.2 K/uL (1.3-3.6) Monocytes # (Auto) 0.7 K/uL (0.3-1.0) Eosinophils # (Auto) 0.1 K/uL (0.0-0.5) Basophils # (Auto) 0.1 K/uL (0.0-0.1) Nucleated RBC Absolute Count (auto) 0.00 K/uL Sodium Level 136 mmol/L (137-145) Potassium Level 3.2 mmol/L (3.5-5.0) Chloride Level 93 mmol/L (98-107) Carbon Dioxide Level 24 mmol/L (22-31) Blood Urea Nitrogen 40 mg/dl (7-18) Creatinine 2.80 mg/dl (0.52-1.04) Glomerular Filtration Rate Calc 17.5 Random Glucose 139 mg/dl (75-110) Calcium Level 10.3 mg/dl (8.4-10.2) Total Bilirubin 0.5 mg/dl (0.2-1.3) Aspartate Amino Transf (AST/SGOT) 12 U/L (0-35) Alanine Aminotransferase (ALT/SGPT) 26 U/L (0-56) Alkaline Phosphatase 96 U/L (0-126) Total Protein 8.8 gm/dl (6.3-8.2) Albumin 4.6 g/dl (3.5-5.0) Lipase 92 U/L (23-300) Chemistry Test 04/25/17 00:00 04/25/17 09:00 04/25/17 09:20 Urine Random Creatinine 268.0 mg/dl Urine Random Sodium 33 MEQ/L Magnesium Level 2.0 mg/dl (1.7-2.2) Troponin I < 0.012 ng/ml Urine Color Yellow Urine Clarity Slightly-cloudy Urine pH 5.0 pH (4.8-9.5) Urine Specific [place] 1.015 Urine Protein Negative mg/dL (NEGATIVE) Urine Glucose (UA) Negative mg/dL (NEGATIVE) Urine Ketones Negative mg/dL (NEGATIVE) Urine Blood Negative (NEGATIVE) Urine Nitrite Negative (NEGATIVE) Urine Bilirubin Negative (NEGATIVE) Urine Urobilinogen Negative mg/dL (0.2-1.9) Urine Leukocyte Esterase Negative (NEGATIVE) Urine RBC <1 /HPF (0-2/HPF) Urine WBC 3 /HPF (0-5/HPF) Urine Squamous Epithelial Cells Many /LPF (</=FEW) Urine Bacteria Negative /HPF (NONE-FEW) Urine Hyaline Casts Many /LPF (NONE-FEW) Urine Mucus Few /HPF (NONE-FEW) White Blood Count 14.2 k/uL (4.5-11.0) Red Blood Count 4.52 M/uL (4.17-5.56) Hemoglobin 13.1 g/dL (12.0-16.0) Hematocrit 39.4 % (34.0-47.0) Mean Corpuscular Volume 87.1 fL (80.0-96.0) Mean Corpuscular Hemoglobin 29.0 pg (26.0-33.0) Mean Corpuscular Hemoglobin Concent 33.3 g/dL (32.0-36.0) Red Cell Distribution Width 15.1 % (11.5-14.5) Platelet Count 484 K/uL (150-450) Mean Platelet Volume 8.0 fL (7.2-11.1) Neutrophils (%) (Auto) 86.0 % (39.4-72.5) Lymphocytes (%) (Auto) 8.1 % (17.6-49.6) Monocytes (%) (Auto) 4.7 % (4.1-12.4) Eosinophils (%) (Auto) 0.6 % (0.4-6.7) Basophils (%) (Auto) 0.6 % (0.3-1.4) Nucleated RBC Relative Count (auto) 0.0 /100WBC Neutrophils # (Auto) 12.2 K/uL (2.0-7.4) Lymphocytes # (Auto) 1.2 K/uL (1.3-3.6) Monocytes # (Auto) 0.7 K/uL (0.3-1.0) Eosinophils # (Auto) 0.1 K/uL (0.0-0.5) Basophils # (Auto) 0.1 K/uL (0.0-0.1) Nucleated RBC Absolute Count (auto) 0.00 K/uL Glomerular Filtration Rate Calc 17.5 Calcium Level 10.3 mg/dl (8.4-10.2) Total Bilirubin 0.5 mg/dl (0.2-1.3) Aspartate Amino Transf (AST/SGOT) 12 U/L (0-35) Alanine Aminotransferase (ALT/SGPT) 26 U/L (0-56) Alkaline Phosphatase 96 U/L (0-126) Total Protein 8.8 gm/dl (6.3-8.2) Albumin 4.6 g/dl (3.5-5.0) Lipase 92 U/L (23-300) Urinalysis Test 04/25/17 00:00 04/25/17 09:00 Urine Random Creatinine 268.0 mg/dl Urine Random Sodium 33 MEQ/L Urine Color Yellow Urine Clarity Slightly-cloudy Urine pH 5.0 pH (4.8-9.5) Urine Specific [place] 1.015 Urine Protein Negative mg/dL (NEGATIVE) Urine Glucose (UA) Negative mg/dL (NEGATIVE) Urine Ketones Negative mg/dL (NEGATIVE) Urine Blood Negative (NEGATIVE) Urine Nitrite Negative (NEGATIVE) Urine Bilirubin Negative (NEGATIVE) Urine Urobilinogen Negative mg/dL (0.2-1.9) Urine Leukocyte Esterase Negative (NEGATIVE) Urine RBC <1 /HPF (0-2/HPF) Urine WBC 3 /HPF (0-5/HPF) Urine Squamous Epithelial Cells Many /LPF (</=FEW) Urine Bacteria Negative /HPF (NONE-FEW) Urine Hyaline Casts Many /LPF (NONE-FEW) Urine Mucus Few /HPF (NONE-FEW) EKG/Imaging Monitor Interpretation: Normal Sinus Rhythm ED Course/Re-evaluation Clinical Indication for ER IV: Hydration, IV Access ED Course 04/25/2017 10:19:38 am patient found to have significantly elevated creatinine and decreased GFR since last visit. Normal GFR runs between 30 and 35 her current GFR 17 baseline creatinine is usually between 1.9 and 2 her last creatinine on April 07 was 1.7 today this 2.8. For this reason we will admit the patient for acute on chronic renal insufficiency. A spot urine sodium and creatinine were sent from the emergency department Decision to Disposition Date: Apr 25, 2017 Decision to Disposition Time: 10:20 Depart Departure Latest Vital Signs Vital Signs Date Time Temp Pulse Resp B/P (MAP) Pulse Ox O2 Delivery O2 Flow Rate FiO2 04/25/17 10:21 66 17 97 04/25/17 10:00 111/71 (84) 04/25/17 08:56 98.6 Nasal Cannula Impression: Primary Impression: Acute on chronic renal failure Condition: Condition Unchanged Disposition: Admitted from ER (to Dr Fernando Dominique) Referrals: JB JASMINE DO (PCP) Problem Qualifiers Primary Impression: Acute on chronic renal failure Acute renal failure type: unspecified Chronic kidney disease stage: stage 4 (severe) Qualified Codes: N17.9 - Acute kidney failure, unspecified; N18.4 - Chronic kidney disease, stage 4 (severe) DILLON GARCIA MD Apr 25, 2017 08:56
[2017-04-25] MEDS ORDERED: RANI-324 PO (09:04)
[2017-04-25] MEDS ORDERED: LR(*) 1000 ML BAG 1,000 ML IV ONE (09:12)
[2017-04-25] MEDS ORDERED: ONDANSETRON 4 MG/2 ML VIAL IVP ONE (09:15)
[2017-04-25 09:26] LABS: PLATELET COUNT, AUTOMATED 484 K/uL (150-450)
[2017-04-25] MEDS ORDERED: KCL (*) 20 MEQ/100 ML PREMIX 100 ML IV ONE (09:40)
--- NOTE | 2017-04-25 09:59 | EKG ---
FACILITY: [facility] - [place] PATIENT NAME: BETTY CALDERON : [id number] MR: [id number] V: [id number] EXAM DATE: ORDERING PHYSICIAN: DILLON GARCIA TECHNOLOGIST: ERICA Wilson Reason : Blood Pressure : / mmHG Vent. Rate : 082 BPM Atrial Rate : 082 BPM P-R Int : 186 ms QRS Dur : 096 ms QT Int : 382 ms P-R-T Axes : 029 061 050 degrees QTc Int : 446 ms Sinus rhythm Nonspecific ST-T findings Similar to previous EKGs Confirmed by ANTHONY ARREDONDO ([id number] on 04/25/2017 6:28:23 PM Referred By: JOSE Confirmed By:ANTHONY ARREDONDO
[2017-04-25] MEDS ORDERED: NS(*) 0.9% 250 ML BAG 250 ML in NS(*) 0.9% 250 ML BAG 250 ML IV SCH (10:00)
[2017-04-25] MEDS ORDERED: NS(*) 0.9% 1000 ML BAG 1,000 ML IV ONE (10:10)
[2017-04-25] MEDS ORDERED: CHOL10005 PO (11:19)
[2017-04-25 11:20] VITALS: BP 107/69
[2017-04-25] MEDS ORDERED: INSULIN HUM LISPRO 100 UN/ML 3 ML VIAL SUBQ PRN (12:00)
[2017-04-25] MEDS ORDERED: KCL 2 MEQ/ML 20 MEQ/10 ML VIAL 20 MEQ in NS(*) 0.9% 1000 ML BAG 1,000 ML IV PRN (12:01)
--- NOTE | 2017-04-25 12:12 | History & Physical ---
History of Present Illness Chief Complaint "Worn out" History of Present Illness 57yo female with PMhx significant for chronic renal failure, type 2 DM, hypothyroidism s/p partial thyroidectomy for nodular goiter. She reports a few days of poor appetite with nausea, but no vomiting. She also had several loose stools this morning (she reports usually 1 or two "chunky" to loose BMs each AM) . She has also had a few episodes of "heart racing" upon awakening from sleep associated with chest tightness/discomfort. No SOB. No edema. No fevers or chills. No cough. No rashes. No urinary complaints other than she did notice a decrease in her usual frequency over past day or two. She was evaluated in the ER and found to be dehydrated with acute on chronic renal failure and hypokalemic. She was recommended for admission. History Problems: (1) History of partial thyroidectomy Status: Resolved (2) Thrombocytosis Status: Chronic (3) Hypercholesteremia Status: Chronic (4) COPD (chronic obstructive pulmonary disease) Status: Chronic (5) Hypothyroidism Status: Chronic (6) Type II diabetes mellitus Status: Chronic (7) Chronic kidney disease (CKD) stage G4/A1, severely decreased glomerular filtration rate (GFR) between 15-29 mL/min/1.73 square meter and albuminuria creatinine ratio less than 30 mg/g (8) Essential hypertension Status: Chronic (9) History of cholecystectomy Status: Chronic (10) History of colonoscopy Status: Chronic Home Meds Active Scripts Atorvastatin Calcium (ATORVASTATIN CALCIUM) 20 Mg Tablet, 1 TAB PO QDAY, #90 TAB 1 Refill Prov:PRESLEY BARTLETT MD 09/24/16 Sitagliptin Phosphate (JANUVIA) 25 Mg Tablet, 25 MG PO QDAY, #30 TAB 4 Refills Prov:PRESLEY BARTLETT MD 09/24/16 Telmisartan (MICARDIS) 80 Mg Tablet, 80 MG PO QDAY, #90 TAB 3 Refills Prov:PRESLEY BARTLETT MD 06/25/16 Oxygen (OXYGEN) Inha, 2 L INH QDAY, #2 L Lenght of need: 99 months portable oxygen oxygen concentrator Prov:KYM HILARIO APRN WOOD SCIENCE PROFESSOR-C 03/29/15 Reported Medications Ranitidine Hcl (ZANTAC) 150 Mg Tablet, 150 MG PO BID, TAB 04/25/17 Cholecalciferol (Vitamin D3) (VITAMIN D3) 1,000 Unit Tablet, 1000 UNIT PO, TAB Pt states that she only takes once a month and did last on 04/01/2017 04/07/17 Levothyroxine Sodium (LEVOTHYROXINE SODIUM) 100 Mcg Tablet, 125 MCG PO QDAY, TAB 01/06/17 Aspirin (ASPIRIN) 81 Mg Tab.chew, 81 MG PO QDAY, TAB.CHEW TAKE 1 TABLET BY MOUTH EVERY DAY 08/17/13 Discontinued Reported Medications Cholecalciferol (Vitamin D3) (VITAMIN D3) 1,000 Unit Tablet, 1000 UNIT PO, TAB 04/25/17 Potassium Chloride (Klor-Con Sprinkle) 10 Meq Capsule.er, 10 MEQ PO BID 04/03/17 Discontinued Scripts Omeprazole (OMEPRAZOLE) 20 Mg Capsule.dr, 1 CAP PO BID, #60 TAB 0 Refills TAKE ONE CAPSULE BY MOUTH TWICE A DAY Prov:DILLON GARCIA MD 03/30/17 Allergies: Coded Allergies: Penicillins (Verified Allergy, Intermediate, HIVES, 04/25/17) oxycodone HCl (Verified Allergy, Mild, FELT SHE WAS GOING BLIND, 04/25/17) Sulfa (Sulfonamide Antibiotics) (Verified Allergy, Unknown, 04/25/17) doxycycline (Verified Allergy, Unknown, increased icp, 04/25/17) ketorolac tromethamine (Verified Adverse Reaction, Unknown, FELT BAD, DIFFICULTY SEEING, 04/25/17) Uncoded Allergies: ARTIFICIAL SWEETNERS (Allergy, Severe, MIGRAINES, 11/18/12) due to neurologist instructions ANTIDEPRESSANTS (Adverse Reaction, Intermediate, STRANGE BEHAVIOR, 11/18/12) STEROIDS (Adverse Reaction, Mild, CANNOT TAKE DUE TO HER PSEUDO TUMOR CEREBRI, 05/18/12) Patient History: FH: coronary artery bypass surgery MOTHER FH: diabetes mellitus MOTHER FH: hypertension MOTHER BROTHER OR SISTER BROTHER OR SISTER Hx Smoking: Yes Smoking Status: Current: Every Day Smoker, Light Tobacco Smoker Exposure to Second Hand Smoke?: Yes Caffeine Intake: Coffee Caffeine/Cups Per Day: 1-2 cups per day Hx Alcohol Use: Yes Alcohol Used: Beer, Liquor Alcohol Withdrawl Symptoms: Heart Racing When Quit Alcohol?: 2008 Hx Substance Use Disorder: Yes Social Drug Use: Former Social Drugs: Marijuana, Cocaine Amount Of Social Drug/s Used: unsure When Quit Social Drugs?: 2008 History of IV Drug Use: No Problems With Substance Use?: Personal Relationships, Family Review of Systems Constitutional: No Fever, No Chills, No Night Sweats Neurological: Weakness Eyes: No Vision Change, No Loss of Vision Cardiovascular: Chest Pain, Palpitations Respiratory: No Shortness of Breath, No Cough, No Wheezing Gastrointestinal: Nausea, No Vomiting, Diarrhea, No Hematemesis, No Hematochezia, No Melena, No Abdominal Pain Genitourinary: No Dysuria, No Hematuria, No Urinary Incontinence Exam Vital Signs Vital Signs Date Time Temp Pulse Resp B/P (MAP) Pulse Ox O2 Delivery O2 Flow Rate FiO2 04/25/17 11:24 96 Nasal Cannula 2.0 04/25/17 11:20 98.2 71 14 107/69 (82) General Appearance: Alert, Awake Neuro: No Gross deficits Eyes: PERRLA ENT: Oropharynx Clear Neck: No Masses Cardiovascular: Regular Rate and Rhythm, No Edema, No JVD Respiratory: Clear to Auscultation GI: Abd Soft and Non-Tender : No CVA Tenderness Lymph: No Adenopathy Extremities: Warm, Perfused Integumentary: Skin Intact without Lesion / Mass, Scaly / Dry Skin Psych: Alert & Oriented X3 Medical Decision Making Data Points Result Diagram: 04/25/1791904/25/17919 Item Value Date Time Lipase 92 U/L 04/25/17919 Albumin 4.6 g/dl 04/25/17919 Total Protein 8.8 gm/dl H 04/25/17919 Alkaline Phosphatase 96 U/L 04/25/17919 Alanine Aminotransferase (ALT/SGPT) 26 U/L 04/25/17919 Aspartate Amino Transf (AST/SGOT) 12 U/L 04/25/17919 Total Bilirubin 0.5 mg/dl 04/25/17919 Calcium Level 10.3 mg/dl H 04/25/17919 Troponin I < 0.012 ng/ml 04/25/17 0000 Magnesium Level 2.0 mg/dl 04/25/17 0000 Urine Color Yellow 04/25/17899 Urine Clarity Slightly-cloudy 04/25/17899 Urine pH 5.0 pH 04/25/17899 Urine Specific [place] 1.015 04/25/17899 Urine Protein Negative mg/dL 04/25/17 09 Urine Glucose (UA) Negative mg/dL 04/25/17899 Urine Ketones Negative mg/dL 04/25/17899 Urine Blood Negative 04/25/17899 Urine Nitrite Negative 04/25/17899 Urine Bilirubin Negative 04/25/17899 Urine Urobilinogen Negative mg/dL 04/25/17899 Urine Leukocyte Esterase Negative 04/25/17899 Urine RBC <1 /HPF 04/25/17899 Urine WBC 3 /HPF 04/25/17 09 Urine Squamous Epithelial Cells Many /LPF H 04/25/17 09 Urine Bacteria Negative /HPF 04/25/17899 Urine Hyaline Casts Many /LPF H 04/25/17899 Urine Mucus Few /HPF 04/25/17899 Urine Random Sodium 33 MEQ/L 04/25/17 0000 Urine Random Creatinine 268.0 mg/dl 04/25/17 0000 Assessment and Plan Problems: (1) Acute on chronic renal failure Status: Acute Assessment & Plan: Most likely secondary to dehydration due to poor intake, loose stools. Will admit for IV fluids. Watch labs closely. Check renal ultrasound. Further work-up and treatment as needed. (2) Dehydration Status: Acute Assessment & Plan: Due to decreased intake/loose stools. Will give IV fluids. (3) Hypokalemia Status: Acute Assessment & Plan: Probable due to stool loss. Will replace with IV and oral supplementation. Watch labs. (4) Hypothyroidism *Optional Permanent Comment*: currently on Levoxyl 125mcg daily Last Edited By : Candis Dominique on Apr 25, 2017 12:47 Status: Chronic Assessment & Plan: Will continue with her L-thyroxine 125mcg daily. Check TSH. (5) Type II diabetes mellitus Status: Chronic Assessment & Plan: Will hold her Januvia for now. Place on ADA diet. Watch glucoses. Use SSI as needed. (6) Palpitations Status: Acute Assessment & Plan: Will place on telemetry. Monitor. Venous Thromboembolism Antithrombotics Is Pt On Any Antithrombotics?: Yes Exam Sepsis Risk: No Definite Risk Problem Qualifiers (1) Acute on chronic renal failure: Acute renal failure type: unspecified Chronic kidney disease stage: stage 4 ( severe) Qualified Codes: N17.9 - Acute kidney failure, unspecified; N18.4 - Chronic kidney disease, stage 4 (severe) CANDIS DOMINIQUE MD Apr 25, 2017 12:12
[2017-04-25] MEDS: KCL/NS* 20 MEQ/1000 ML PREMIX 1,000 ML IV PRN ×2 (13:00→23:40)
[2017-04-25 13:12] VITALS: Ht 170.2 cm; Wt 81.7 kg
--- NOTE | 2017-04-25 13:22 | Medical Nutrition Therapy ---
Nutrition Anthropometrics Height (Inches): 67.00 Height (Calculated Centimeters: 170.026321 Weight (Pounds): 180 Weight (Calculated Kilograms): 81.732 BMI Calculated: 28.19 Huan Nutrition Score: Adequate Huan Nutrition Risk Score: 21 Dietary Referral Nutrition Risk Factors: Nutrition Risk Comment: Physical Findings Physical Appearance: Overweight BMI 25-29 Skin Appearance Skin Appearance: Edema Edema Location Modifier: Edema Location: Type of Edema: Degree of Edema: Gastrointestinal Symptoms GI Symtoms: Tube Present: Bowel Sounds: Recent Bowel Pattern: Diarrhea Stool Characteristics: Nutritional Diagnosis Nutritional Risk Acuity 1: Acute/ES Renal Past Medical History: renal failure, T2DM, hyponatremia, goiter, HTN, COPD Nutritional Acuity: 1-High Nutrition Diagnosis: Decreased Nutrient Needs Nutrition Etiology: Physiological Causes Nutrition Problem/Etiology/Sym: Decreased protein needs related to physiological causes as evidenced by acute kidney failure and BUN of 40 and creatinine 2.8 Energy Requirement: 2430 ([id number] (30-40 kcal/kg per recommendations for LILIA) ) Protein Requirement: 40 (40-64g (.5-.8 g/kg per reccomendations for non- dialysis LILIA)) Fluid Requirement: 2430 (30 ml/kg) Diet Type: Diabetic Nutrition Intervention: Cont diet as ordered, Encourage intake Diet Comment To RSA: NO ARTIFICIAL SWEETNERS Nutrition Monitoring & Eval RD Patient Assessment Time: [address] Assessment Type: RD Assessment Patient Nutrition Acuity: 1-High Follow Up Date: Apr 28, 2017 Nutritional Comment: 04/25 Pt admitted with nausea, poor appetite and loose stools and will be treated for acute renal failure and dehydration. PMH of T2DM, CKD, hypothyroidism and COPD. BMI in overweight category (28.2). Pt recieved diet education for DM in 2015. Notable labs include Na 136, K 3.2, BUN 40, creatinine 2.8, glc 139 and tot pro 8.8. Currently on ADA diet with no intake yet. Will monitor and encourage intake. MADALYN PASTRANA Apr 25, 2017 13:22
[2017-04-25 14:55] VITALS: BP 103/64
[2017-04-25] MEDS: NICOTINE 7 MG/24 HR PATCH TD SCH (14:59)
[2017-04-25 15:45] VITALS: BP 100/58
[2017-04-25 19:07] VITALS: BP 109/66
[2017-04-25] MEDS: RANITIDINE HCL 150 MG TAB PO SCH (21:00)
[2017-04-25] MEDS ORDERED: ATORVASTATIN 10 MG TAB PO SCH (21:00)
[2017-04-25 23:10] VITALS: BP 113/58
[2017-04-26 03:11] VITALS: BP 101/60
[2017-04-26] MEDS ORDERED: LEVOTHYROXINE SOD 0.150 MG TAB PO SCH (06:00)
[2017-04-26] MEDS ORDERED: LEVOTHYROXINE SOD 0.125 MG TAB PO SCH (06:00)
[2017-04-26 06:16] LABS: PLATELET COUNT, AUTOMATED 339 K/uL (150-450)
[2017-04-26 07:19] VITALS: BP 111/63
[2017-04-26] MEDS: RANITIDINE HCL 150 MG TAB PO SCH (08:50)
[2017-04-26] MEDS: NICOTINE 7 MG/24 HR PATCH TD SCH (08:51)
[2017-04-26] MEDS ORDERED: ENOXAPARIN 40 MG/0.4ML SYR SC SCH (09:00)
[2017-04-26] MEDS ORDERED: PATCH REMOVAL 1 EA TP SCH (09:00)
[2017-04-26 11:02] VITALS: BP 111/70
[2017-04-26] MEDS ORDERED: POTA10CA40 PO (11:19)
[2017-04-26] MEDS ORDERED: NICO1PAT86 TD (11:19)
--- NOTE | 2017-04-26 12:06 | Hospitalist Depart ---
Discharge Summary Reason for Hosp/Final Diag: (1) Hypokalemia Status: Acute Hospital Course & Plan: She has had a persistently low potassium level over the 6 weeks, but was, reportedly from the patient, unable to tolerate oral supplements. Probably due to stool loss. Resolved with IV supplementation. She is willing to take oral potassium, so will discharge on 10mEq bid. BMP on . Continue Telmisartan. She needs to follow up with Nephrology for further evaluation. (2) Acute on chronic renal failure Status: Resolved Hospital Course & Plan: Most likely secondary to dehydration due to poor intake , loose stools. Resolved with IV fluids. She is to make a follow up appointment with Nephrology. (3) Anemia Status: Acute Hospital Course & Plan: Likely some is dilutional. No symptoms c/w bleeding. She has CKD. CBC on 04/29 to follow. (4) Dehydration Status: Resolved Hospital Course & Plan: Due to decreased intake/loose stools. Will give IV fluids. (5) Hypothyroidism *Optional Permanent Comment*: currently on Levoxyl 125mcg daily Last Edited By : Candis Dominique on Apr 25, 2017 12:47 Status: Chronic Hospital Course & Plan: Will continue with her L-thyroxine 125mcg daily. TSH pending. (6) Type II diabetes mellitus Status: Chronic Hospital Course & Plan: Glucose 92-148. Continue Januvia (7) Palpitations Status: Acute Hospital Course & Plan: No arrhythmias noted on telemetry. Departure Weight (Pounds): 180 Weight (Ounces): 3.0 Result Diagram: 04/26/17 0555 04/26/17 0555 Item Value Date Time White Blood Count 14.2 k/uL H 04/25/17 0920 White Blood Count 7.0 k/uL 04/26/17 0555 Hemoglobin 13.1 g/dL 04/25/17 0920 Hemoglobin 10.4 g/dL L 04/26/17 0555 Platelet Count 339 K/uL 04/26/17 0555 Platelet Count 484 K/uL H 04/25/17 0920 Creatinine 2.00 mg/dl H 04/26/17 0555 Blood Urea Nitrogen 30 mg/dl H 04/26/17 0555 Magnesium Level 1.8 mg/dl 04/26/17 0555 Total Bilirubin 0.2 mg/dl 04/26/17 0555 Aspartate Amino Transf (AST/SGOT) 8 U/L 04/26/17 0555 Alanine Aminotransferase (ALT/SGPT) 24 U/L 04/26/17 0555 Troponin I < 0.012 ng/ml 04/25/17 1602 Whole Blood Glucose 148 mg/DL H 04/26/17 1131 Whole Blood Glucose 129 mg/DL H 04/25/17 2119 Whole Blood Glucose 92 mg/DL 04/25/17 1243 Magnesium Level 2.0 mg/dl 04/25/17 0000 Troponin I < 0.012 ng/ml 04/25/17 0000 Sodium Level 136 mmol/L L 04/25/17 0920 Potassium Level 3.2 mmol/L L 04/25/17 0920 Chloride Level 93 mmol/L L 04/25/17 0920 Carbon Dioxide Level 24 mmol/L 04/25/17 0920 Blood Urea Nitrogen 40 mg/dl H 04/25/17 0920 Creatinine 2.80 mg/dl H 04/25/17 0920 Random Glucose 139 mg/dl H 04/25/17 0920 Calcium Level 10.3 mg/dl H 04/25/17 0920 Total Bilirubin 0.5 mg/dl 04/25/17 0920 Aspartate Amino Transf (AST/SGOT) 12 U/L 04/25/17 0920 Alanine Aminotransferase (ALT/SGPT) 26 U/L 04/25/17 0920 Alkaline Phosphatase 96 U/L 04/25/17 0920 Urine RBC <1 /HPF 04/25/17 0900 Urine WBC 3 /HPF 04/25/17 0900 Urine Squamous Epithelial Cells Many /LPF H 04/25/17 0900 Urine Bacteria Negative /HPF 04/25/17 0900 Urine Hyaline Casts Many /LPF H 04/25/17 0900 Urine Mucus Few /HPF 04/25/17 0900 Urine Random Creatinine 268.0 mg/dl 04/25/17 0000 Urine Random Sodium 33 MEQ/L 04/25/17 0000 EKG Vent. Rate : 082 BPM Atrial Rate : 082 BPM P-R Int : 186 ms QRS Dur : 096 ms QT Int : 382 ms P-R-T Axes : 029 061 050 degrees QTc Int : 446 ms Sinus rhythm Nonspecific ST-T findings Similar to previous EKGs Confirmed by CANDIS DOMINIQUE ([id number]) on 04/25/2017 6:28:23 PM Condition: Improved Discharge: Home Discharge Instructions Home Meds Active Scripts Potassium Chloride (POTASSIUM CHLORIDE) 10 Meq Capsule.er, 10 MEQ PO BID, #60 Prov:BLAYNE WEBER MD 04/26/17 Nicotine (NICOTINE PATCH) 1 Each Patch.td24, 7 MG TD QDAY, #30 Prov:BLAYNE WEBER MD 04/26/17 Atorvastatin Calcium (ATORVASTATIN CALCIUM) 20 Mg Tablet, 1 TAB PO QDAY, #90 TAB 1 Refill Prov:PRESLEY BARTLETT MD 09/24/16 Sitagliptin Phosphate (JANUVIA) 25 Mg Tablet, 25 MG PO QDAY, #30 TAB 4 Refills Prov:PRESLEY BARTLETT MD 09/24/16 Telmisartan (MICARDIS) 80 Mg Tablet, 80 MG PO QDAY, #90 TAB 3 Refills Prov:PRESLEY BARTLETT MD 06/25/16 Oxygen (OXYGEN) Inha, 2 L INH QDAY, #2 L Lenght of need: 99 months portable oxygen oxygen concentrator Prov:KYM HILARIO APRN PRINTING PLATE CLERK-C 03/29/15 Reported Medications Ranitidine Hcl (ZANTAC) 150 Mg Tablet, 150 MG PO BID, TAB 04/25/17 Cholecalciferol (Vitamin D3) (VITAMIN D3) 1,000 Unit Tablet, 1000 UNIT PO, TAB Pt states that she only takes once a month and did last on 04/01/2017 04/07/17 Levothyroxine Sodium (LEVOTHYROXINE SODIUM) 100 Mcg Tablet, 125 MCG PO QDAY, TAB 01/06/17 Aspirin (ASPIRIN) 81 Mg Tab.chew, 81 MG PO QDAY, TAB.CHEW TAKE 1 TABLET BY MOUTH EVERY DAY 08/17/13 Discontinued Reported Medications Cholecalciferol (Vitamin D3) (VITAMIN D3) 1,000 Unit Tablet, 1000 UNIT PO, TAB 04/25/17 Potassium Chloride (Klor-Con Sprinkle) 10 Meq Capsule.er, 10 MEQ PO BID 04/03/17 Discontinued Scripts Omeprazole (OMEPRAZOLE) 20 Mg Capsule.dr, 1 CAP PO BID, #60 TAB 0 Refills TAKE ONE CAPSULE BY MOUTH TWICE A DAY Prov:DILLON GARCIA MD 03/30/17 Diet: Regular Activity: As Tolerated Special Instructions: Follow up with your PCP in 1-2 weeks. BMP/CBC to follow potassium and rbc on 04/29. Make an appointment with Nephrology at the next available to continue the work up of low potassium. Copies to: CAROL VEGA; JNO STEVENS MD Venous Thromboembolism Antithrombotics Is Pt On Any Antithrombotics?: Yes Problem Qualifiers (1) Acute on chronic renal failure: Acute renal failure type: unspecified Chronic kidney disease stage: stage 4 ( severe) Qualified Codes: N17.9 - Acute kidney failure, unspecified; N18.4 - Chronic kidney disease, stage 4 (severe) BLAYNE WEBER MD Apr 26, 2017 12:06
[2017-04-27] MEDS ORDERED: INFLUENZA VIRUS VAC 0.5 ML SYR IM ONLY ONE (12:05)
== END 2017-04-26 14:03 | disposition home or self-care (01) ==
LOC: ER 09:12 → MED 10:22 → INTOOBSV 10:22
PROVIDERS: ADMIT Internal Medicine; ATTEND Internal Medicine
DX: I12.9 Hypertensive chronic kidney disease with stage 1 through stage 4 chronic kidney disease, or unspecified chronic kidney disease (principal); E11.22 Type 2 diabetes mellitus with diabetic chronic kidney disease; N18.4 Chronic kidney disease, stage 4 (severe); E86.0 Dehydration; E87.6 Hypokalemia; E03.9 Hypothyroidism, unspecified
CPT/HCPCS: 36415; 36416; 81001; 82570; 82948; 83690; 83735; 84300; 84443; 84484; 85025; 93005; 96361; 96365; 96372; 96375; 99285; G0378; J1650; J1815; J2405; J3480; J7030; J7120; 82040; 82247; 82310; 82374; 82435; 82565; 82947; 84075; 84132; 84155; 84295; 84450; 84460; 84520

== ENCOUNTER → 2017-04-26 | Outpatient (REF) | payer MEDICAID ==
[2017-04-25 13:12] VITALS: BMI 28.2
[~2017-04-26] MED LIST changes: +NICO1PAT86 TD; +POTA10CA40 PO; +RANI-324 PO
== END ==
LOC: ZZSENDIN 06:04
PROVIDERS: ATTEND Internal Medicine Cardiovascular Disease
DX: E78.00 Pure hypercholesterolemia, unspecified (principal); I95.9 Hypotension, unspecified; R94.31 Abnormal electrocardiogram [ECG] [EKG]; I10 Essential (primary) hypertension
CPT/HCPCS: 82465; 83718; 84478

== ENCOUNTER → 2017-04-29 | Outpatient (CLI) | payer MEDICAID ==
[2017-04-25 13:12] VITALS: BMI 28.2
[~2017-04-29] MED LIST changes: +DIAZ2TAB72 PO
[2017-04-29 11:55] LABS: PLATELET COUNT, AUTOMATED 483 K/uL (150-450)
== END ==
LOC: LAB 11:37
PROVIDERS: ATTEND Internal Medicine
DX: E87.6 Hypokalemia (principal); D64.9 Anemia, unspecified
CPT/HCPCS: 36415; 82310; 82374; 82435; 82565; 82947; 84132; 84295; 84520; 85025

== ENCOUNTER 2017-05-02 19:03 | Emergency (ER) | payer MEDICAID ==
[2017-04-25 13:12] VITALS: Wt 80.4 kg
[~2017-05-02 19:03] MED LIST changes: -DIAZ2TAB72 PO
--- NOTE | 2017-05-02 19:12 | ER Report ---
History and Physical Time Seen By MD: 19:12 ([facility]) HPI/ROS CHIEF COMPLAINT: Dysuria HISTORY OF PRESENT ILLNESS: This is a 57-year-old female who presents to the emergency department for complaints of dysuria. Patient states that she was recently discharged from the hospital for hypokalemia and had seen Dr. Lisbeth Irizarry as a follow-up and was taking oral potassium pills, went from twice a day to once a day and forgot to take those this weekend she had company at her house. She also states that she developed some dysuria today and this is very unusual for her she's also concerned that her potassium is low again, and she also states that as she drove up to the emergency department she began to have some chest pressure midsternal denies pain or shortness of breath. Patient denies aches or chills. patient appears anxious and agitated. Patient is also concerned about her blood pressure as the monitor is showing a blood pressure of 154/75. No headaches or visual changes. REVIEW OF SYSTEMS: Constitutional: No fever, no chills. Eyes: No discharge. ENT: No sore throat. Cardiovascular: As above. Respiratory: As above. Gastrointestinal: No abdominal pain, no vomiting. Genitourinary: As above. Musculoskeletal: No back pain. Skin: No rashes. Neurological: No headache. ([facility]) Allergies: Coded Allergies: Penicillins (Verified Allergy, Intermediate, HIVES, 04/25/17) oxycodone HCl (Verified Allergy, Mild, FELT SHE WAS GOING BLIND, 04/25/17) Sulfa (Sulfonamide Antibiotics) (Verified Allergy, Unknown, 04/25/17) doxycycline (Verified Allergy, Unknown, increased icp, 04/25/17) ketorolac tromethamine (Verified Adverse Reaction, Unknown, FELT BAD, DIFFICULTY SEEING, 04/25/17) Uncoded Allergies: ARTIFICIAL SWEETNERS (Allergy, Severe, MIGRAINES, 11/18/12) due to neurologist instructions ANTIDEPRESSANTS (Adverse Reaction, Intermediate, STRANGE BEHAVIOR, 11/18/12) STEROIDS (Adverse Reaction, Mild, CANNOT TAKE DUE TO HER PSEUDO TUMOR CEREBRI, 05/18/12) Home Meds Active Scripts Diazepam (VALIUM) 2 Mg Tablet, 2 MG PO QHS Y for ANXIETY, #5 TAB 0 Refills Prov:ALVIN LUCIO MD 05/02/17 Nicotine (NICOTINE PATCH) 1 Each Patch.td24, 7 MG TD QDAY, #30 Prov:BLAYNE WEBER MD 04/26/17 Atorvastatin Calcium (ATORVASTATIN CALCIUM) 20 Mg Tablet, 1 TAB PO QDAY, #90 TAB 1 Refill Prov:PRESLEY BARTLETT MD 09/24/16 Sitagliptin Phosphate (JANUVIA) 25 Mg Tablet, 25 MG PO QDAY, #30 TAB 4 Refills Prov:PRESLEY BARTLETT MD 09/24/16 Telmisartan (MICARDIS) 80 Mg Tablet, 80 MG PO QDAY, #90 TAB 3 Refills Prov:PRESLEY BARTLETT MD 06/25/16 Oxygen (OXYGEN) Inha, 2 L INH QDAY, #2 L Lenght of need: 99 months portable oxygen oxygen concentrator Prov:KYM HILARIO APRN PBX TEACHER-C 03/29/15 Reported Medications Ranitidine Hcl (ZANTAC) 150 Mg Tablet, 150 MG PO BID, TAB 04/25/17 Cholecalciferol (Vitamin D3) (VITAMIN D3) 1,000 Unit Tablet, 1000 UNIT PO, TAB Pt states that she only takes once a month and did last on 04/01/2017 04/07/17 Levothyroxine Sodium (LEVOTHYROXINE SODIUM) 100 Mcg Tablet, 125 MCG PO QDAY, TAB 01/06/17 Aspirin (ASPIRIN) 81 Mg Tab.chew, 81 MG PO QDAY, TAB.CHEW TAKE 1 TABLET BY MOUTH EVERY DAY 08/17/13 Discontinued Reported Medications Cholecalciferol (Vitamin D3) (VITAMIN D3) 1,000 Unit Tablet, 1000 UNIT PO, TAB 04/25/17 Potassium Chloride (Klor-Con Sprinkle) 10 Meq Capsule.er, 10 MEQ PO BID 04/03/17 Discontinued Scripts Potassium Chloride (POTASSIUM CHLORIDE) 10 Meq Capsule.er, 10 MEQ PO BID, #60 Prov:BLAYNE WEBER MD 04/26/17 Omeprazole (OMEPRAZOLE) 20 Mg Capsule.dr, 1 CAP PO BID, #60 TAB 0 Refills TAKE ONE CAPSULE BY MOUTH TWICE A DAY Prov:DILLON GARCIA MD 03/30/17 Past Medical/Surgical History Patient has a past medical and surgical history of migraines, and occasional irregular heartbeat, hypertension, hypercholesterolemia, pneumonia, bronchitis, gallbladder disease, back pain, pseudotumor cerebri, biw-helyedy-rifqknfgh diabetic, anxiety, panic attacks, cholecystectomy, left knee scope, adenoidectomy, tonsillectomy. ([facility] Reviewed Nurses Notes: Yes ([facility]-) Hx Smoking: Yes Smoking Status: Current: Every Day Smoker, Light Tobacco Smoker Exposure to Second Hand Smoke?: Yes Hx Substance Use Disorder: No Hx [facility]: Yes [facility] Constitutional Vital Sign - Last 24 Hours 05/02/17 05/02/17 05/02/17 05/02/17 19:03 19:09 19:14 19:18 Temp 99.1 Pulse ??? 67 78 Resp 18 25 B/P (MAP) 154/75 154/75 (101) Pulse Ox 89 97 O2 Delivery Nasal Cannula 05/02/17 05/02/17 05/02/17 05/02/17 19:30 19:33 19:48 20:00 Pulse 69 65 Resp 8 9 B/P (MAP) 141/97 (112) 143/77 (99) Pulse Ox 97 96 05/02/17 05/02/17 05/02/17 05/02/17 20:03 20:18 20:30 20:33 Pulse ??? 68 62 Resp 20 9 B/P (MAP) 138/84 (102) Pulse Ox 96 98 97 05/02/17 05/02/17 05/02/17 05/02/17 20:48 20:52 20:53 21:00 Pulse 64 63 Resp 9 11 B/P (MAP) 137/70 (92) Pulse Ox 96 96 O2 Flow Rate 2.0 05/02/17 05/02/17 05/02/17 05/02/17 21:08 21:23 21:30 21:38 Pulse ??? 62 57 Resp 20 18 B/P (MAP) 138/71 (93) Pulse Ox 95 96 05/02/17 05/02/17 05/02/17 05/02/17 21:53 22:00 22:05 22:20 Pulse 56 55 ??? Resp 13 13 B/P (MAP) 132/65 (87) Pulse Ox 98 98 05/02/17 05/02/17 05/02/17 05/02/17 22:30 22:35 22:50 23:00 Pulse 58 64 Resp 12 11 B/P (MAP) ???/??? (1665) 148/70 (96) 128/72 (90) Pulse Ox 97 98 05/02/17 05/02/17 23:05 23:27 Pulse 62 85 Resp 13 16 B/P (MAP) 128/72 (90) Pulse Ox 97 92 O2 Delivery Nasal Cannula O2 Flow Rate 2 ([facility] Physical Exam General Appearance: The patient is alert, has no immediate need for airway protection and no signs of toxicity. Eyes: Pupils equal and round no pallor or injection. ENT, Mouth: Mucous membranes are moist. Respiratory: There are no retractions, lungs are clear to auscultation. Cardiovascular: Regular rate and rhythm, no murmurs, clicks or rubs. Gastrointestinal: Abdomen is soft and non tender, no masses, bowel sounds normal. Neurological: Alert and oriented 4. Moving all extremities. Following all commands. No focal neuro deficits. Skin: Warm and dry, no rashes. Musculoskeletal: Neck is supple non tender. Extremities are nontender, nonswollen and have full range of motion. DIFFERENTIAL DIAGNOSIS: After history and physical exam differential diagnosis was considered for shortness of breath including but not limited to pulmonary infectious process, COPD, asthma, pulmonary embolus and congestive heart failure. ([facility]-) Medical Decision Making Data Points Result Diagram: 05/02/17191905/02/171919 Laboratory Hematology Test 05/02/17 19:20 05/02/17 19:37 05/02/17 22:34 Red Blood Count 3.91 M/uL (4.17-5.56) Mean Corpuscular Volume 87.1 fL (80.0-96.0) Mean Corpuscular Hemoglobin 29.1 pg (26.0-33.0) Mean Corpuscular Hemoglobin Concent 33.5 g/dL (32.0-36.0) Red Cell Distribution Width 15.5 % (11.5-14.5) Mean Platelet Volume 6.6 fL (7.2-11.1) Neutrophils (%) (Auto) 66.1 % (39.4-72.5) Lymphocytes (%) (Auto) 26.4 % (17.6-49.6) Monocytes (%) (Auto) 4.8 % (4.1-12.4) Eosinophils (%) (Auto) 1.5 % (0.4-6.7) Basophils (%) (Auto) 1.2 % (0.3-1.4) Nucleated RBC Relative Count (auto) 0.0 /100WBC Neutrophils # (Auto) 7.5 K/uL (2.0-7.4) Lymphocytes # (Auto) 3.0 K/uL (1.3-3.6) Monocytes # (Auto) 0.5 K/uL (0.3-1.0) Eosinophils # (Auto) 0.2 K/uL (0.0-0.5) Basophils # (Auto) 0.1 K/uL (0.0-0.1) Nucleated RBC Absolute Count (auto) 0.00 K/uL Sodium Level 133 mmol/L (137-145) Potassium Level 3.1 mmol/L (3.5-5.0) Chloride Level 93 mmol/L (98-107) Carbon Dioxide Level 26 mmol/L (22-31) Blood Urea Nitrogen 16 mg/dl (7-18) Creatinine 1.80 mg/dl (0.52-1.04) Glomerular Filtration Rate Calc 29.2 Random Glucose 154 mg/dl (75-110) Calcium Level 9.6 mg/dl (8.4-10.2) Magnesium Level 1.8 mg/dl (1.7-2.2) Total Bilirubin 0.2 mg/dl (0.2-1.3) Aspartate Amino Transf (AST/SGOT) 11 U/L (0-35) Alanine Aminotransferase (ALT/SGPT) 27 U/L (0-56) Alkaline Phosphatase 77 U/L (0-126) Total Protein 7.8 gm/dl (6.3-8.2) Albumin 4.1 g/dl (3.5-5.0) Urine Color Colorless Urine Clarity Clear Urine pH 6.0 pH (4.8-9.5) Urine Specific [place] 1.002 Urine Protein Negative mg/dL (NEGATIVE) Urine Glucose (UA) Negative mg/dL (NEGATIVE) Urine Ketones Negative mg/dL (NEGATIVE) Urine Blood Negative (NEGATIVE) Urine Nitrite Negative (NEGATIVE) Urine Bilirubin Negative (NEGATIVE) Urine Urobilinogen Negative mg/dL (0.2-1.9) Urine Leukocyte Esterase Negative (NEGATIVE) Urine RBC None /HPF (0-2/HPF) Urine WBC <1 /HPF (0-5/HPF) Urine Squamous Epithelial Cells None /LPF (</=FEW) Urine Bacteria Negative /HPF (NONE-FEW) Urine Mucus None /HPF (NONE-FEW) Troponin I < 0.012 ng/ml Chemistry Test 05/02/17 19:20 05/02/17 19:37 05/02/17 22:34 White Blood Count 11.3 k/uL (4.5-11.0) Red Blood Count 3.91 M/uL (4.17-5.56) Hemoglobin 11.4 g/dL (12.0-16.0) Hematocrit 34.1 % (34.0-47.0) Mean Corpuscular Volume 87.1 fL (80.0-96.0) Mean Corpuscular Hemoglobin 29.1 pg (26.0-33.0) Mean Corpuscular Hemoglobin Concent 33.5 g/dL (32.0-36.0) Red Cell Distribution Width 15.5 % (11.5-14.5) Platelet Count 489 K/uL (150-450) Mean Platelet Volume 6.6 fL (7.2-11.1) Neutrophils (%) (Auto) 66.1 % (39.4-72.5) Lymphocytes (%) (Auto) 26.4 % (17.6-49.6) Monocytes (%) (Auto) 4.8 % (4.1-12.4) Eosinophils (%) (Auto) 1.5 % (0.4-6.7) Basophils (%) (Auto) 1.2 % (0.3-1.4) Nucleated RBC Relative Count (auto) 0.0 /100WBC Neutrophils # (Auto) 7.5 K/uL (2.0-7.4) Lymphocytes # (Auto) 3.0 K/uL (1.3-3.6) Monocytes # (Auto) 0.5 K/uL (0.3-1.0) Eosinophils # (Auto) 0.2 K/uL (0.0-0.5) Basophils # (Auto) 0.1 K/uL (0.0-0.1) Nucleated RBC Absolute Count (auto) 0.00 K/uL Glomerular Filtration Rate Calc 29.2 Calcium Level 9.6 mg/dl (8.4-10.2) Magnesium Level 1.8 mg/dl (1.7-2.2) Total Bilirubin 0.2 mg/dl (0.2-1.3) Aspartate Amino Transf (AST/SGOT) 11 U/L (0-35) Alanine Aminotransferase (ALT/SGPT) 27 U/L (0-56) Alkaline Phosphatase 77 U/L (0-126) Total Protein 7.8 gm/dl (6.3-8.2) Albumin 4.1 g/dl (3.5-5.0) Urine Color Colorless Urine Clarity Clear Urine pH 6.0 pH (4.8-9.5) Urine Specific [place] 1.002 Urine Protein Negative mg/dL (NEGATIVE) Urine Glucose (UA) Negative mg/dL (NEGATIVE) Urine Ketones Negative mg/dL (NEGATIVE) Urine Blood Negative (NEGATIVE) Urine Nitrite Negative (NEGATIVE) Urine Bilirubin Negative (NEGATIVE) Urine Urobilinogen Negative mg/dL (0.2-1.9) Urine Leukocyte Esterase Negative (NEGATIVE) Urine RBC None /HPF (0-2/HPF) Urine WBC <1 /HPF (0-5/HPF) Urine Squamous Epithelial Cells None /LPF (</=FEW) Urine Bacteria Negative /HPF (NONE-FEW) Urine Mucus None /HPF (NONE-FEW) Troponin I < 0.012 ng/ml Urinalysis Test 05/02/17 19:37 Urine Color Colorless Urine Clarity Clear Urine pH 6.0 pH (4.8-9.5) Urine Specific [place] 1.002 Urine Protein Negative mg/dL (NEGATIVE) Urine Glucose (UA) Negative mg/dL (NEGATIVE) Urine Ketones Negative mg/dL (NEGATIVE) Urine Blood Negative (NEGATIVE) Urine Nitrite Negative (NEGATIVE) Urine Bilirubin Negative (NEGATIVE) Urine Urobilinogen Negative mg/dL (0.2-1.9) Urine Leukocyte Esterase Negative (NEGATIVE) Urine RBC None /HPF (0-2/HPF) Urine WBC <1 /HPF (0-5/HPF) Urine Squamous Epithelial Cells None /LPF (</=FEW) Urine Bacteria Negative /HPF (NONE-FEW) Urine Mucus None /HPF (NONE-FEW) (ALVIN LUCIO MD) EKG/Imaging EKG Interpretation 12 lead EKG: Time of EKG 1925. Rhythm: Normal sinus rhythm, ventricular rate 68 bpm. Sinus arrhythmia. [place]: normal QRS: normal ST segments: No ST depression or elevation identified. Poor T-wave progression. Flipped T waves in V1, V2, flattened in V3 which is different from the EKG. Imaging Location: [facility] Patient: Malu Mora : 1960 Visit/Account:[id number] Date of Sevice: 05/02/2017 CHEST: Indication: Chest pressure. Technique: Frontal and lateral views were obtained. Comparison: 04/03/2017 Skeletal and soft tissue structures: Intact and unremarkable. Heart and mediastinum: Within normal limits. Lung ricks: Well-expanded and clear. Pleural spaces: Unremarkable. Impression: No acute process or significant change. Report Dictated By: Demarco Jones MD at 05/02/2017 9:03 PM Report E-Signed By: Demarco Jones MD at 05/02/2017 9:05 PM WSN:[id number] ([facility]) ED Course/Re-evaluation Clinical Indication for ER IV: IV Access ED Course The patient was admitted to a room. A history and physical were obtained. Differential diagnoses were considered. An IV was started. A CBC, CMP, troponin and UA were obtained. The patient's platelet count is 489, sodium 133, potassium 3.1, glucose 154, creatinine 1.8. Negative troponin. EKG showing normal sinus rhythm with a sinus arrhythmia, flipped T waves in V1, V2 and flattened in V3 which is different from the previous EKG. A 2 view chest x-ray showing no acute cardiopulmonary process. I did review these results with the patient she is still complaining of some midsternal chest pressure and I did explain to her that I'm concerned that this could certainly be her heart and therefore I would like to keep her here for a repeat troponin and EKG. I did offer her a GI cocktail which she refused. Patient is agreeable with this plan of care. I did review this with Dr. Lucio he will take over the patient's care. Decision to Disposition Date: May 02, 2017 Decision to Disposition Time: 22:30 Transfer Facility The care of the patient was turned over to Dr. Lucio. JAHAIRA Rahman I authorize my typed signature that I authenticated this report. ([facility] ED Course Assumed care of this patient from Arnold this evening. Second troponin and EKG were negative. Reviewed symptoms with patient. Still with burning in epigastric and lower chest. Recommended looking into seeing a block layer for further evaluation. Discussed her concern that potassium is causing the problem and she can discuss with pharmacy or primary care regarding getting a different form of potassium supplementation. She is extremely anxious and I did give her a valium 2mg tablet now and a prescription for Valium 2mg #5 to use every 6 hours as needed for severe anxiety, but discussed that long-term use of this medicine is not a good idea. Decision to Disposition Date: May 02, 2017 Decision to Disposition Time: 23:21 (ALVIN LUCIO MD) Depart Departure Latest Vital Signs Vital Signs Date Time Temp Pulse Resp B/P (MAP) Pulse Ox O2 Delivery O2 Flow Rate FiO2 05/02/17 23:27 85 16 128/72 (90) 92 Nasal Cannula 2 05/02/17 19:09 99.1 (ALVIN LUCIO MD) Impression: Primary Impression: Hypokalemia Additional Impression: Chest pressure Condition: Improved Disposition: HOME OR SELF-CARE Referrals: CAROL FONSECA (PCP) New Scripts Diazepam (VALIUM) 2 Mg Tablet 2 MG PO QHS Y for ANXIETY, #5 TAB 0 Refills Prov: ALVIN LUCIO MD 05/02/17 Patient Instructions: Hypokalemia (ED) Additional Instructions: Drink plenty of fluids. Get plenty of rest. Take one of your potassium pills when he gets home tonight and one in the morning. Follow-up with Dr. Blackwell this week to discuss your kidney function and potassium. Follow-up with Carol Fonseca as scheduled. They return to the ED for any other concerns or worsening symptoms. Consider seeing a block layer or one of the general surgeons here for further evaluation of gastritis or esophagitis. Keep taking your Zantac 150mg twice a day at breakfast and dinner. Small prescription for Valium 2mg, one every 6 hours as needed for anxiety. Problem Qualifiers [facility] May 02, 2017 19:12 ALVIN LUCIO MD May 02, 2017 21:48
[2017-05-02 19:33] LABS: PLATELET COUNT, AUTOMATED 489 K/uL (150-450)
--- NOTE | 2017-05-02 20:18 | EKG ---
FACILITY: [facility] PATIENT NAME: BETTY CALDERON : [id number] MR: [id number] V: [id number] EXAM DATE: ORDERING PHYSICIAN: JON DOTSON TECHNOLOGIST: Salvador Wilson Reason : Blood Pressure : / mmHG Vent. Rate : 068 BPM Atrial Rate : 068 BPM P-R Int : 206 ms QRS Dur : 102 ms QT Int : 414 ms P-R-T Axes : 068 071 069 degrees QTc Int : 440 ms Normal sinus rhythm with sinus arrhythmia with 1st degree AV block Possible Anterolateral infarct , age undetermined Abnormal ECG When compared with ECG of 25-APR-2017 09:12, Borderline criteria for Anterolateral infarct are now present T wave inversion now evident in Anterior leads Confirmed by BLAYNE WEBER ([id number]) on 05/03/2017 7:31:47 AM Referred By: Confirmed By:BLAYNE WEBER
--- NOTE | 2017-05-02 21:09 | RADIOLOGY IMAGING REPORT ---
FACILITY: [facility] PATIENT NAME: Malu Mora : 1960 MR: [id number] V: [id number] EXAM DATE: ORDERING PHYSICIAN: JON DOTSON TECHNOLOGIST: Location: [facility] Patient: Malu Mora : 1960 Visit/Account:[id number] Date of Sevice: 05/02/2017 CHEST: Indication: Chest pressure. Technique: Frontal and lateral views were obtained. Comparison: 04/03/2017 Skeletal and soft tissue structures: Intact and unremarkable. Heart and mediastinum: Within normal limits. Lung ricks: Well-expanded and clear. Pleural spaces: Unremarkable. Impression: No acute process or significant change. Report Dictated By: Demarco Jones MD at 05/02/2017 9:03 PM Report E-Signed By: Demarco Jones MD at 05/02/2017 9:05 PM WSN:[id number]
[2017-05-02] MEDS ORDERED: NS(*) 0.9% 1000 ML BAG 1,000 ML IV ONE (21:15)
--- NOTE | 2017-05-02 21:32 | EKG ---
[place]AC[place] [facility] [place]IENT NAME: BETTY CALDERON : [id number] MR: [id number] V: [id number] EXAM DATE: ORDERING PHYSICIAN: JON DOTSON TECHNOLOGIST: Salvador Wilson Reason : Blood Pressure : / mmHG Vent. Rate : 060 BPM Atrial Rate : 059 BPM P-R Int : 210 ms QRS Dur : 102 ms QT Int : 436 ms P-R-T Axes : 075 076 062 degrees QTc Int : 436 ms Sinus bradycardia with 1st degree AV block with premature atrial complexes Possible Anterolateral infarct (cited on or before 02-MAY-2017) Abnormal ECG When compared with ECG of 02-MAY-2017 19:26, premature atrial complexes are now present Confirmed by BLAYNE WEBER ([id number]) on 05/03/2017 7:32:58 AM Referred By: Confirmed By:BLAYNE WEBER
[2017-05-02] MEDS ORDERED: DIAZ2TAB72 PO (23:22)
[2017-05-02] MEDS ORDERED: DIAZEPAM 2 MG TAB PO ONE (23:25)
[2017-05-02 23:27] VITALS: BP 128/72
== END 2017-05-02 23:12 | disposition home or self-care (01) ==
LOC: ER 19:28
DX: E87.6 Hypokalemia (principal); R07.89 Other chest pain
CPT/HCPCS: 71046; 81001; 83735; 84484; 85025; 93005; 96360; 96361; 99284; J7030; 82040; 82247; 82310; 82374; 82435; 82565; 82947; 84075; 84132; 84155; 84295; 84450; 84460; 84520

== ENCOUNTER 2017-05-04 00:11 | Emergency (ER) | payer MEDICAID ==
[2017-04-25 13:12] VITALS: Wt 80.3 kg
[~2017-05-04 00:11] MED LIST changes: +DIAZ2TAB72 PO
--- NOTE | 2017-05-04 00:31 | ER Report ---
History and Physical Time Seen By MD: 00:31 Hx. of Stated Complaint: Pt reports increased blood pressure. HPI/ROS 57-year-old female well-known to this facility presents with complaint of high blood pressure noted at home. She also is complaining of urinary frequency and some right upper abdominal discomfort that started sometime this evening. Patient seen within the last 24 hours for concerns of low potassium and urinary frequency and had full workup and was sent home with some Valium and reassurance. Patient does have follow-up the primary care doctor tomorrow. Patient notes that her blood pressure was elevated at home she can very concerned and came in. She denies any sudden onset headache, confusion, vision changes, unilateral numbness or tingling, difficulty with speech, chest pain, shortness of breath, worsening weakness, fevers, chills, nausea, vomiting, syncope. She did have a few palpitations but are consistent with past symptoms that she's had evaluations for. Review of systems per history of present illness otherwise negative Allergies: Coded Allergies: Penicillins (Verified Allergy, Intermediate, HIVES, 04/25/17) oxycodone HCl (Verified Allergy, Mild, FELT SHE WAS GOING BLIND, 04/25/17) Sulfa (Sulfonamide Antibiotics) (Verified Allergy, Unknown, 04/25/17) doxycycline (Verified Allergy, Unknown, increased icp, 04/25/17) ketorolac tromethamine (Verified Adverse Reaction, Unknown, FELT BAD, DIFFICULTY SEEING, 04/25/17) Uncoded Allergies: ARTIFICIAL SWEETNERS (Allergy, Severe, MIGRAINES, 11/18/12) due to neurologist instructions ANTIDEPRESSANTS (Adverse Reaction, Intermediate, STRANGE BEHAVIOR, 11/18/12) STEROIDS (Adverse Reaction, Mild, CANNOT TAKE DUE TO HER PSEUDO TUMOR CEREBRI, 05/18/12) Home Meds Active Scripts Diazepam (VALIUM) 2 Mg Tablet, 2 MG PO QHS Y for ANXIETY, #5 TAB 0 Refills Prov:ALVIN SMYTH MD 05/02/17 Nicotine (NICOTINE PATCH) 1 Each Patch.td24, 7 MG TD QDAY, #30 Prov:BLAYNE WEBER MD 04/26/17 Atorvastatin Calcium (ATORVASTATIN CALCIUM) 20 Mg Tablet, 1 TAB PO QDAY, #90 TAB 1 Refill Prov:PRESLEY BARTLETT MD 09/24/16 Sitagliptin Phosphate (JANUVIA) 25 Mg Tablet, 25 MG PO QDAY, #30 TAB 4 Refills Prov:PRESLEY BARTLETT MD 09/24/16 Telmisartan (MICARDIS) 80 Mg Tablet, 80 MG PO QDAY, #90 TAB 3 Refills Prov:PRESLEY BARTLETT MD 06/25/16 Oxygen (OXYGEN) Inha, 2 L INH QDAY, #2 L Lenght of need: 99 months portable oxygen oxygen concentrator Prov:KYM HILARIO APRN PULP TESTER-C 03/29/15 Reported Medications Ranitidine Hcl (ZANTAC) 150 Mg Tablet, 150 MG PO BID, TAB 04/25/17 Cholecalciferol (Vitamin D3) (VITAMIN D3) 1,000 Unit Tablet, 1000 UNIT PO, TAB Pt states that she only takes once a month and did last on 04/01/2017 04/07/17 Levothyroxine Sodium (LEVOTHYROXINE SODIUM) 100 Mcg Tablet, 125 MCG PO QDAY, TAB 01/06/17 Aspirin (ASPIRIN) 81 Mg Tab.chew, 81 MG PO QDAY, TAB.CHEW TAKE 1 TABLET BY MOUTH EVERY DAY 08/17/13 Discontinued Scripts Potassium Chloride (POTASSIUM CHLORIDE) 10 Meq Capsule.er, 10 MEQ PO BID, #60 Prov:BLAYNE WEBER MD 04/26/17 Past Medical/Surgical History Hyponatremia Hx Smoking: Yes Smoking Status: Current: Every Day Smoker, Light Tobacco Smoker Exposure to Second Hand Smoke?: Yes Hx Substance Use Disorder: No Hx Alcohol Use: Yes Constitutional Vital Sign - Last 24 Hours 05/04/17 05/04/17 05/04/17 05/04/17 00:20 00:32 00:56 01:00 Pulse 89 73 Resp 16 B/P (MAP) 146/77 136/76 (96) 131/70 (90) Pulse Ox 90 96 O2 Delivery Room Air 05/04/17 05/04/17 05/04/17 01:11 01:26 01:30 Pulse 70 77 B/P (MAP) 125/64 (84) Physical Exam Physical exam: Vital signs noted. General: Patient alert [and in no acute distress]. [Does not appear ill]. Skin: [Warm, dry, without rashes, or lesions]. Head: [Normocephalic, atraumatic]. Eye: [Normal conjunctiva]. ENMT: [Oral mucosa moist, no pharyngeal erythema or exudate]. Neck: [Supple, trachea midline]. Cardiovascular: [Regular rate and rhythm without gallops murmurs or rubs. Normal peripheral perfusion with no edema noted]. Respiratory: [Lungs clear to auscultation bilaterally with nonlabored respirations. Breath sounds are equal with symmetric expansion]. Gastrointestinal: Abdomen soft nontender with no guarding or rebound. Back: [Nontender with normal range of motion and normal alignment]. Musculoskeletal: [Normal range of motion throughout with normal strength. No tenderness, swelling or deformities noted. Moves all extremities equally]. Neurologic: [Patient alert and oriented 4 with no focal neuro deficits cranial nerves II - XII grossly intact. Patient has normal speech] Psychiatric: [Patient is cooperative with appropriate mood and affect] Medical Decision Making Data Points Result Diagram: 05/04/17 0032 Laboratory Hematology Test 05/04/17 00:32 Urine Color Colorless Urine Clarity Clear Urine pH 6.0 pH (4.8-9.5) Urine Specific [place] 1.002 Urine Protein Negative mg/dL (NEGATIVE) Urine Glucose (UA) Negative mg/dL (NEGATIVE) Urine Ketones Negative mg/dL (NEGATIVE) Urine Blood Negative (NEGATIVE) Urine Nitrite Negative (NEGATIVE) Urine Bilirubin Negative (NEGATIVE) Urine Urobilinogen Negative mg/dL (0.2-1.9) Urine Leukocyte Esterase Negative (NEGATIVE) Urine RBC None /HPF (0-2/HPF) Urine WBC 3 /HPF (0-5/HPF) Urine Squamous Epithelial Cells Few /LPF (</=FEW) Urine Bacteria Negative /HPF (NONE-FEW) Urine Mucus None /HPF (NONE-FEW) Sodium Level 137 mmol/L (137-145) Potassium Level 3.4 mmol/L (3.5-5.0) Chloride Level 99 mmol/L (98-107) Carbon Dioxide Level 25 mmol/L (22-31) Blood Urea Nitrogen 16 mg/dl (7-18) Creatinine 1.70 mg/dl (0.52-1.04) Glomerular Filtration Rate Calc 31.2 Random Glucose 147 mg/dl (75-110) Calcium Level 9.4 mg/dl (8.4-10.2) Chemistry Test 05/04/17 00:32 Urine Color Colorless Urine Clarity Clear Urine pH 6.0 pH (4.8-9.5) Urine Specific [place] 1.002 Urine Protein Negative mg/dL (NEGATIVE) Urine Glucose (UA) Negative mg/dL (NEGATIVE) Urine Ketones Negative mg/dL (NEGATIVE) Urine Blood Negative (NEGATIVE) Urine Nitrite Negative (NEGATIVE) Urine Bilirubin Negative (NEGATIVE) Urine Urobilinogen Negative mg/dL (0.2-1.9) Urine Leukocyte Esterase Negative (NEGATIVE) Urine RBC None /HPF (0-2/HPF) Urine WBC 3 /HPF (0-5/HPF) Urine Squamous Epithelial Cells Few /LPF (</=FEW) Urine Bacteria Negative /HPF (NONE-FEW) Urine Mucus None /HPF (NONE-FEW) Glomerular Filtration Rate Calc 31.2 Calcium Level 9.4 mg/dl (8.4-10.2) Urinalysis Test 05/04/17 00:32 Urine Color Colorless Urine Clarity Clear Urine pH 6.0 pH (4.8-9.5) Urine Specific [place] 1.002 Urine Protein Negative mg/dL (NEGATIVE) Urine Glucose (UA) Negative mg/dL (NEGATIVE) Urine Ketones Negative mg/dL (NEGATIVE) Urine Blood Negative (NEGATIVE) Urine Nitrite Negative (NEGATIVE) Urine Bilirubin Negative (NEGATIVE) Urine Urobilinogen Negative mg/dL (0.2-1.9) Urine Leukocyte Esterase Negative (NEGATIVE) Urine RBC None /HPF (0-2/HPF) Urine WBC 3 /HPF (0-5/HPF) Urine Squamous Epithelial Cells Few /LPF (</=FEW) Urine Bacteria Negative /HPF (NONE-FEW) Urine Mucus None /HPF (NONE-FEW) ED Course/Re-evaluation ED Course 57-year-old female with this facility presents with complaints of high blood pressure. Blood pressures reassuring here. Patient also has no evidence of end organ failure. Just seen yesterday for evaluation with normal urine and lab work. Patient's request repeated a urine which is normal and repeated electrolyte panel and her potassium was 3.4. Patient has close follow-up with her primary tomorrow morning. Encourage to continue with that appointment. Offered reassurance pressure was okay no evidence of emergent process at this time. Return precautions discussed patient's best interest and agreement with plan. Decision to Disposition Date: May 03, 2017 Decision to Disposition Time: 23:45 Depart Departure Latest Vital Signs Vital Signs Date Time Temp Pulse Resp B/P (MAP) Pulse Ox O2 Delivery O2 Flow Rate FiO2 05/04/17 01:30 125/64 (84) 05/04/17 01:26 77 05/04/17 00:56 96 05/04/17 00:20 16 Room Air Impression: Primary Impression: Urinary frequency Additional Impression: Abdominal pain Condition: Improved Disposition: HOME OR SELF-CARE Referrals: CAROL FONSECA (PCP) Patient Instructions: Urinary Urgency and Frequency (GEN) Additional Instructions: Follow-up with Carol Fonseca tomorrow as scheduled. Return to emergency department for any new or worsening symptoms Problem Qualifiers HAYLIE CERVANTES MD May 04, 2017 00:31
[2017-05-04 01:30] VITALS: BP 125/64
== END 2017-05-04 01:42 | disposition home or self-care (01) ==
LOC: ER 00:34
DX: N39.0 Urinary tract infection, site not specified (principal); R10.11 Right upper quadrant pain
CPT/HCPCS: 81001; 82310; 82374; 82435; 82565; 82947; 84132; 84295; 84520; 99284

== ENCOUNTER → 2017-05-07 | Outpatient (CLI) | payer MEDICAID ==
[2017-04-25 13:12] VITALS: BMI 28.2
[~2017-05-07] MED LIST changes: +POTA-53 PO
[2017-05-07 15:46] LABS: PLATELET COUNT, AUTOMATED 462 K/uL (150-450)
== END ==
LOC: LAB 15:22
PROVIDERS: ATTEND Internal Medicine Nephrology
DX: I12.9 Hypertensive chronic kidney disease with stage 1 through stage 4 chronic kidney disease, or unspecified chronic kidney disease (principal); N18.4 Chronic kidney disease, stage 4 (severe); E87.6 Hypokalemia; D50.9 Iron deficiency anemia, unspecified
CPT/HCPCS: 36415; 82040; 82310; 82374; 82435; 82565; 82570; 82947; 83735; 83970; 84100; 84132; 84156; 84295; 84520; 85025

== ENCOUNTER → 2017-05-07 | Outpatient (CLI) | payer MEDICAID ==
[2017-04-25 13:12] VITALS: BMI 28.2
== END ==
LOC: LAB 15:26
PROVIDERS: ATTEND Internal Medicine Hematology
DX: D47.3 Essential (hemorrhagic) thrombocythemia (principal); E03.9 Hypothyroidism, unspecified; E61.1 Iron deficiency

== ENCOUNTER 2017-05-11 16:52 | Emergency (ER) | payer MEDICAID ==
[2017-04-25 13:12] VITALS: Wt 81.6 kg
--- NOTE | 2017-05-11 17:07 | ER Report ---
History and Physical Time Seen By MD: 17:06 Hx. of Stated Complaint: TAKING K+ PILLS. HAVING CHEST TIGHTNESS, SOB, TINGLING IN EXTREMETIES HPI/ROS CHIEF COMPLAINT: Chest pressure HISTORY OF PRESENT ILLNESS: 57-year-old female patient presents to emergency room with complaint of chest pressure. Patient states this been going on for the last 2 hours. She states that she took her potassium approximately at noon and therefore started having this pressure in her chest. She states that she knows that that is likely the cause of her pain. She states she did not take her potassium yesterday she felt wonderful. She states she does have some shortness of breath, nausea but denies any vomiting. She states she feels are worse when she takes her potassium, stating that her blood pressure is higher. She states she was put on that by the faucets assembler. REVIEW OF SYSTEMS: Respiratory: No cough, no dyspnea. Cardiovascular: As noted above Gastrointestinal: No vomiting, no abdominal pain. Musculoskeletal: No back pain. Allergies: Coded Allergies: Penicillins (Verified Allergy, Intermediate, HIVES, 05/11/17) oxycodone HCl (Verified Allergy, Mild, FELT SHE WAS GOING BLIND, 05/11/17) Sulfa (Sulfonamide Antibiotics) (Verified Allergy, Unknown, 05/11/17) doxycycline (Verified Allergy, Unknown, increased icp, 05/11/17) ketorolac tromethamine (Verified Adverse Reaction, Unknown, FELT BAD, DIFFICULTY SEEING, 05/11/17) Uncoded Allergies: ARTIFICIAL SWEETNERS (Allergy, Severe, MIGRAINES, 11/18/12) due to neurologist instructions ANTIDEPRESSANTS (Adverse Reaction, Intermediate, STRANGE BEHAVIOR, 11/18/12) STEROIDS (Adverse Reaction, Mild, CANNOT TAKE DUE TO HER PSEUDO TUMOR CEREBRI, 05/18/12) Home Meds Active Scripts Diazepam (VALIUM) 2 Mg Tablet, 2 MG PO QHS Y for ANXIETY, #5 TAB 0 Refills Prov:ALVIN SMYTH MD 05/02/17 Atorvastatin Calcium (ATORVASTATIN CALCIUM) 20 Mg Tablet, 1 TAB PO QDAY, #90 TAB 1 Refill Prov:PRESLEY MENDIOLA MD 09/24/16 Sitagliptin Phosphate (JANUVIA) 25 Mg Tablet, 25 MG PO QDAY, #30 TAB 4 Refills Prov:PRESLEY MENDIOLA MD 09/24/16 Telmisartan (MICARDIS) 80 Mg Tablet, 80 MG PO QDAY, #90 TAB 3 Refills Prov:PRESLEY MENDIOLA MD 06/25/16 Reported Medications Potassium Chloride (POTASSIUM CHLORIDE) 10 Meq Tab.er.prt, 10 MEQ PO QDAY 05/07/17 Cholecalciferol (Vitamin D3) (VITAMIN D3) 1,000 Unit Tablet, 1000 UNIT PO, TAB Pt states that she only takes once a month and did last on 04/01/2017 04/07/17 Levothyroxine Sodium (LEVOTHYROXINE SODIUM) 100 Mcg Tablet, 125 MCG PO QDAY, TAB 01/06/17 Aspirin (ASPIRIN) 81 Mg Tab.chew, 81 MG PO QDAY, TAB.CHEW TAKE 1 TABLET BY MOUTH EVERY DAY 08/17/13 Discontinued Reported Medications Ranitidine Hcl (ZANTAC) 150 Mg Tablet, 150 MG PO BID, TAB 04/25/17 Discontinued Scripts Nicotine (NICOTINE PATCH) 1 Each Patch.td24, 7 MG TD QDAY, #30 Prov:BLAYNE WEBER MD 04/26/17 Oxygen (OXYGEN) Inha, 2 L INH QDAY, #2 L Lenght of need: 99 months portable oxygen oxygen concentrator Prov:KYM HILARIO APRN HAND LEATHER TRIMMER-C 03/29/15 Past Medical/Surgical History Patient has a past medical history of migraines, irregular heartbeat, hypertension, hyperlipidemia, asthma, pneumonia, COPD, cholecystitis, chronic kidney disease, degenerative disc disease, back pain, pseudotumor cerebri, diabetes, alcohol use, anxiety. Patient has surgical history of tonsillectomy, adenoidectomy, left knee surgery , cholecystectomy. Patient has a family medical history of CAD, diabetes. Reviewed Nurses Notes: Yes Hx Smoking: Yes Smoking Status: Current: Every Day Smoker, Light Tobacco Smoker Exposure to Second Hand Smoke?: Yes Hx Substance Use Disorder: No Hx Alcohol Use: Yes Constitutional Vital Sign - Last 24 Hours 05/11/17 05/11/17 05/11/17 05/11/17 16:52 16:56 16:58 17:00 Temp 99.0 Pulse ??? 68 Resp 16 B/P (MAP) 163/83 (109) 162/69 162/79 (106) Pulse Ox 96 O2 Delivery Nasal Cannula 3/1305/11/17 05/11/17 05/11/17 17:07 17:07 17:22 17:37 Pulse 73 71 ??? Resp 12 17 Pulse Ox 96 95 O2 Flow Rate 2.0 05/11/17 05/11/17 05/11/17 05/11/17 17:41 17:52 18:00 18:07 Pulse 65 65 Resp 13 13 B/P (MAP) 167/83 (111) 144/81 (102) Pulse Ox 96 97 05/11/17 05/11/17 05/11/17 18:22 18:30 18:37 Pulse 66 64 Resp 11 10 B/P (MAP) 141/80 (100) Pulse Ox 96 96 Intake and Output 05/11/17 05/11/17 05/12/17 15:00 23:00 07:00 Intake Total 900 ml Balance 900 ml Physical Exam General Appearance: The patient is alert, has no immediate need for airway protection and no current signs of toxicity. ENT: Tympanic membranes are pearly-gomez, auditory canals are patent, mucous membranes are moist. Respiratory: Chest is non tender, lungs are clear to auscultation. Cardiac: regular rate and rhythm Gastrointestinal: Abdomen is soft and non tender, no masses, bowel sounds normal. Musculoskeletal: Neck: Neck is supple and non tender. Extremities have full range of motion and are non tender. Skin: No rashes or lesions. DIFFERENTIAL DIAGNOSIS: After history and physical exam differential diagnosis was considered for chest pain including but not limited to myocardial ischemia, pericarditis pulmonary embolus, chest wall pain, pleural inflammation and pulmonary infectious causes. Medical Decision Making Data Points Result Diagram: 05/11/17 1724 05/11/17 1724 Laboratory Hematology Test 05/11/17 17:24 Red Blood Count 3.89 M/uL (4.17-5.56) Mean Corpuscular Volume 88.1 fL (80.0-96.0) Mean Corpuscular Hemoglobin 30.0 pg (26.0-33.0) Mean Corpuscular Hemoglobin Concent 34.1 g/dL (32.0-36.0) Red Cell Distribution Width 15.6 % (11.5-14.5) Mean Platelet Volume 6.9 fL (7.2-11.1) Neutrophils (%) (Auto) 70.3 % (39.4-72.5) Lymphocytes (%) (Auto) 21.3 % (17.6-49.6) Monocytes (%) (Auto) 5.6 % (4.1-12.4) Eosinophils (%) (Auto) 1.7 % (0.4-6.7) Basophils (%) (Auto) 1.1 % (0.3-1.4) Nucleated RBC Relative Count (auto) 0.0 /100WBC Neutrophils # (Auto) 7.2 K/uL (2.0-7.4) Lymphocytes # (Auto) 2.2 K/uL (1.3-3.6) Monocytes # (Auto) 0.6 K/uL (0.3-1.0) Eosinophils # (Auto) 0.2 K/uL (0.0-0.5) Basophils # (Auto) 0.1 K/uL (0.0-0.1) Nucleated RBC Absolute Count (auto) 0.01 K/uL D-Dimer Quantitative (PE/DVT) 0.31 ug/ml (0-0.50) Sodium Level 140 mmol/L (137-145) Potassium Level 4.3 mmol/L (3.5-5.0) Chloride Level 99 mmol/L (98-107) Carbon Dioxide Level 28 mmol/L (22-31) Blood Urea Nitrogen 22 mg/dl (7-18) Creatinine 1.80 mg/dl (0.52-1.04) Glomerular Filtration Rate Calc 29.2 Random Glucose 158 mg/dl (75-110) Calcium Level 9.9 mg/dl (8.4-10.2) Total Bilirubin 0.3 mg/dl (0.2-1.3) Aspartate Amino Transf (AST/SGOT) 15 U/L (0-35) Alanine Aminotransferase (ALT/SGPT) 31 U/L (0-56) Alkaline Phosphatase 78 U/L (0-126) Troponin I < 0.012 ng/ml Total Protein 7.8 gm/dl (6.3-8.2) Albumin 4.2 g/dl (3.5-5.0) Chemistry Test 05/11/17 17:24 White Blood Count 10.3 k/uL (4.5-11.0) Red Blood Count 3.89 M/uL (4.17-5.56) Hemoglobin 11.7 g/dL (12.0-16.0) Hematocrit 34.3 % (34.0-47.0) Mean Corpuscular Volume 88.1 fL (80.0-96.0) Mean Corpuscular Hemoglobin 30.0 pg (26.0-33.0) Mean Corpuscular Hemoglobin Concent 34.1 g/dL (32.0-36.0) Red Cell Distribution Width 15.6 % (11.5-14.5) Platelet Count 477 K/uL (150-450) Mean Platelet Volume 6.9 fL (7.2-11.1) Neutrophils (%) (Auto) 70.3 % (39.4-72.5) Lymphocytes (%) (Auto) 21.3 % (17.6-49.6) Monocytes (%) (Auto) 5.6 % (4.1-12.4) Eosinophils (%) (Auto) 1.7 % (0.4-6.7) Basophils (%) (Auto) 1.1 % (0.3-1.4) Nucleated RBC Relative Count (auto) 0.0 /100WBC Neutrophils # (Auto) 7.2 K/uL (2.0-7.4) Lymphocytes # (Auto) 2.2 K/uL (1.3-3.6) Monocytes # (Auto) 0.6 K/uL (0.3-1.0) Eosinophils # (Auto) 0.2 K/uL (0.0-0.5) Basophils # (Auto) 0.1 K/uL (0.0-0.1) Nucleated RBC Absolute Count (auto) 0.01 K/uL D-Dimer Quantitative (PE/DVT) 0.31 ug/ml (0-0.50) Glomerular Filtration Rate Calc 29.2 Calcium Level 9.9 mg/dl (8.4-10.2) Total Bilirubin 0.3 mg/dl (0.2-1.3) Aspartate Amino Transf (AST/SGOT) 15 U/L (0-35) Alanine Aminotransferase (ALT/SGPT) 31 U/L (0-56) Alkaline Phosphatase 78 U/L (0-126) Troponin I < 0.012 ng/ml Total Protein 7.8 gm/dl (6.3-8.2) Albumin 4.2 g/dl (3.5-5.0) Coagulation Test 05/11/17 17:24 D-Dimer Quantitative (PE/DVT) 0.31 ug/ml EKG/Imaging EKG Interpretation 12 lead EKG: Rhythm: normal sinus rhythm with a ventricular rate of 69 bpm. [place]: normal QRS: normal ST segments: normal Imaging Chest with lateral, 2 views. HISTORY: Chest pain, smoker. COMPARISON: 05/02/2017. EKG leads project on the chest. Minimal streaky densities are present in the right midlung and left lung base. The heart and mediastinum are unremarkable. Pulmonary vessels are unremarkable. The lungs are voluminous. The pleural surfaces are unremarkable. No pneumothorax. No acute bony abnormalities. IMPRESSION: COPD. Minimal bilateral subsegmental atelectasis or pleural parenchymal scars. Report Dictated By: Jd Cagle MD at 05/11/2017 7:02 PM Report E-Signed By: Jd Cagle MD at 05/11/2017 7:04 PM ED Course/Re-evaluation ED Course Patient was admitted and examined, history and physical were obtained. Differential diagnoses were considered. On examination patient has chest pressure that this not worsened with palpation. Lungs were clear to auscultation. A CBC, CMP, troponin, EKG, chest x-ray were done. Lab results were unremarkable, EKG showed normal sinus rhythm. Troponin was negative. Patient's potassium was 4.3. When I went in to discuss the lab results with patient she states that she knows that this is potassium is causing it. She states she would like to quit taking it. I discussed this with patient stating that potassium supplements necessary for the body. However as she has a follow- up appointment with Dr. Mendiola and her customer resource specialist tomorrow. She also has an appointment on Wednesday with her faucets assembler. I discussed with her that we can go ahead and hold it for 3 days. I wouldn't anticipate that would drop her potassium significant amount. We will have her repeat her labs on Wednesday with her faucets assembler. And then follow their direction at that time. I also informed her that there are other options of taking potassium besides taking pills, she can take as a liquid or she can have potassium infusions done. Decision to Disposition Date: May 11, 2017 Decision to Disposition Time: 19:36 Depart Departure Latest Vital Signs Vital Signs Date Time Temp Pulse Resp B/P (MAP) Pulse Ox O2 Delivery O2 Flow Rate FiO2 05/11/17 18:37 64 10 96 05/11/17 18:30 141/80 (100) 05/11/17 17:07 2.0 05/11/17 16:58 99.0 Nasal Cannula Impression: Primary Impression: Chest pressure Condition: Improved Disposition: HOME OR SELF-CARE Referrals: PRESLEY MENDIOLA MD (PCP) Patient Instructions: Chest Pain (ED) Additional Instructions: Increase fluid intake. Get plenty of rest. Follow up with your primary care provider in the next week. Return to the ER if condition worsens. Don't take you potassium for the next couple of days and have it rechecked on Wednesday. ANGELA DIAZ May 11, 2017 17:07
[2017-05-11] MEDS ORDERED: NS(*) 0.9% 1000 ML BAG 1,000 ML IV ONE (17:20)
[2017-05-11 17:34] LABS: PLATELET COUNT, AUTOMATED 477 K/uL (150-450)
[2017-05-11 18:30] VITALS: BP 141/80
--- NOTE | 2017-05-11 19:08 | RADIOLOGY IMAGING REPORT ---
FACILITY: [facility] - [place] PATIENT NAME: Malu Mora : 1960 MR: [id number] V: [id number] EXAM DATE: ORDERING PHYSICIAN: ANGELA DIAZ TECHNOLOGIST: Location: [facility] [place] Patient: Malu Mora : 1960 Visit/Account:[id number] Date of Sevice: 05/11/2017 Chest with lateral, 2 views. HISTORY: Chest pain, smoker. COMPARISON: 05/02/2017. EKG leads project on the chest. Minimal streaky densities are present in the right midlung and left l pankaj base. The heart and mediastinum are unremarkable. Pulmonary vessels are unremarkable. The lungs are voluminous. The pleural surfaces are unremarkable. No pneumothorax. No acute bony abnormalities. IMPRESSION: COPD. Minimal bilateral subsegmental atelectasis or pleural parenchymal scars. Report Dictated By: Jd Cagle MD at 05/11/2017 7:02 PM Report E-Signed By: Jd Cagle MD at 05/11/2017 7:04 PM WSN:[id number]
--- NOTE | 2017-05-11 19:57 | EKG ---
FACILITY: [facility] PATIENT NAME: BETTY CALDERON : [id number] MR: [id number] V: [id number] EXAM DATE: ORDERING PHYSICIAN: ANGELA DIAZ TECHNOLOGIST: SAMIRA Test Reason : CP Blood Pressure : / mmHG Vent. Rate : 069 BPM Atrial Rate : 069 BPM P-R Int : 182 ms QRS Dur : 092 ms QT Int : 412 ms P-R-T Axes : 009 070 058 degrees QTc Int : 441 ms Normal sinus rhythm Normal ECG When compared with ECG of 02-MAY-2017 21:20, premature atrial complexes are no longer present Borderline criteria for Anterolateral infarct are no longer present Nonspecific T wave abnormality, improved in Anterior leads Confirmed by MARITO SIMMONS ([id number]) on 05/11/2017 11:45:23 PM Referred By: LATA Confirmed By:MARITO SIMMONS
[2017-05-12] MEDS ORDERED: LEV125 PO ×2 (10:30→10:44)
[2017-05-12] MEDS ORDERED: ATOR20TA65 PO (10:44)
[2017-05-12] MEDS ORDERED: ESOM40CA42 PO (10:44)
[2017-05-12] MEDS ORDERED: TELM80TA5 PO (10:44)
[2017-05-12] MEDS ORDERED: SITA25TA PO (10:44)
[2017-05-12] MEDS ORDERED: DIAZ2TAB72 PO (10:44)
[2017-05-12] MEDS ORDERED: AMIL5TAB11 PO (12:26)
[2017-05-12] MEDS ORDERED: LANC-1295 MC (14:56)
[2017-05-13] MEDS ORDERED: TELM80TA5 PO (08:17)
== END 2017-05-11 19:55 | disposition home or self-care (01) ==
LOC: ER 17:08
DX: R07.89 Other chest pain (principal)
CPT/HCPCS: 71046; 84484; 85025; 85379; 93005; 96360; 96361; 99284; J7030; 82040; 82247; 82310; 82374; 82435; 82565; 82947; 84075; 84132; 84155; 84295; 84450; 84460; 84520

== ENCOUNTER → 2017-05-12 | Outpatient (CLI) | payer MEDICAID ==
[2017-04-25 13:12] VITALS: BMI 28.2
[~2017-05-12] MED LIST changes: +AMIL5TAB11 PO; +ESOM40CA42 PO; +LANC-1295 MC
== END ==
LOC: LAB 11:44
PROVIDERS: ATTEND Internal Medicine
DX: E11.9 Type 2 diabetes mellitus without complications (principal)
CPT/HCPCS: 36415; 83036

== ENCOUNTER → 2017-05-12 | Outpatient (CLI) | payer MEDICAID ==
[2017-04-25 13:12] VITALS: BMI 28.2
[2017-05-12 12:16] LABS: PLATELET COUNT, AUTOMATED 486 K/uL (150-450)
== END ==
LOC: LAB 11:40
PROVIDERS: ATTEND Internal Medicine Hematology
DX: D47.3 Essential (hemorrhagic) thrombocythemia (principal); E03.9 Hypothyroidism, unspecified; E61.1 Iron deficiency
CPT/HCPCS: 36415; 83540; 83550; 85025

== ENCOUNTER 2017-05-17 14:55 | Emergency (ER) | payer MEDICAID ==
[2017-04-25 13:12] VITALS: Wt 80.3 kg
--- NOTE | 2017-05-17 15:30 | ER Report ---
History and Physical Time Seen By MD: 15:29 Hx. of Stated Complaint: PATIENT REPORTS FEELING LIKE HER POTASSIUM IS LOW HPI/ROS Feels unwell, and thinks her potassium is low. No chest pain or SOB. No weakness. States she just doesn't feel at her baseline. Remainder of the 14 system rev: Yes Allergies: Coded Allergies: Penicillins (Verified Allergy, Intermediate, HIVES, 05/11/17) oxycodone HCl (Verified Allergy, Mild, FELT SHE WAS GOING BLIND, 05/11/17) Sulfa (Sulfonamide Antibiotics) (Verified Allergy, Unknown, 05/11/17) doxycycline (Verified Allergy, Unknown, increased icp, 05/11/17) ketorolac tromethamine (Verified Adverse Reaction, Unknown, FELT BAD, DIFFICULTY SEEING, 05/11/17) Uncoded Allergies: ARTIFICIAL SWEETNERS (Allergy, Severe, MIGRAINES, 11/18/12) due to neurologist instructions ANTIDEPRESSANTS (Adverse Reaction, Intermediate, STRANGE BEHAVIOR, 11/18/12) STEROIDS (Adverse Reaction, Mild, CANNOT TAKE DUE TO HER PSEUDO TUMOR CEREBRI, 05/18/12) Home Meds Active Scripts Telmisartan (MICARDIS) 80 Mg Tablet, 80 MG PO HS, #90 TAB 3 Refills Prov:PRESLEY BARTLETT MD 05/13/17 Lancets (FREESTYLE LANCETS) 1 Each Each, BOX MC QDAY, #1 4 Refills Patient to test blood glucose once a day Prov:PRESLEY BARTLETT MD 05/12/17 Levothyroxine Sodium (LEVOTHYROXINE SODIUM) 0.125 Mg Tab, 0.125 MG PO QDAY, #90 TAB 3 Refills Prov:PRESLEY BARTLETT MD 05/12/17 Diazepam (VALIUM) 2 Mg Tablet, 2 MG PO QHS Y for ANXIETY, #30 TAB 0 Refills Prov:PRESLEY BARTLETT MD 05/12/17 Atorvastatin Calcium (ATORVASTATIN CALCIUM) 20 Mg Tablet, 1 TAB PO QDAY, #90 TAB 3 Refills Prov:PRESLEY BARTLETT MD 05/12/17 Sitagliptin Phosphate (JANUVIA) 25 Mg Tablet, 25 MG PO QDAY, #90 TAB 3 Refills Prov:PRESLEY BARTLETT MD 05/12/17 Reported Medications Amiloride Hcl (AMILORIDE HCL) 5 Mg Tablet, 5 MG PO QAM 05/12/17 Cholecalciferol (Vitamin D3) (VITAMIN D3) 1,000 Unit Tablet, 25529 UNIT PO Q30D , TAB Pt states that she only takes once a month and did last on 04/01/2017 04/07/17 Aspirin (ASPIRIN) 81 Mg Tab.chew, 81 MG PO QDAY, TAB.CHEW TAKE 1 TABLET BY MOUTH EVERY DAY 08/17/13 Discontinued Reported Medications Potassium Chloride (POTASSIUM CHLORIDE) 10 Meq Tab.er.prt, 10 MEQ PO QDAY 05/07/17 Levothyroxine Sodium (LEVOTHYROXINE SODIUM) 100 Mcg Tablet, 125 MCG PO QDAY, TAB 01/06/17 Discontinued Scripts Esomeprazole Magnesium (NEXIUM) 40 Mg Capsule.dr, 1 CAP PO QDAY, #30 CAP 3 Refills Prov:PRESLEY BARTLETT MD 05/12/17 Telmisartan (MICARDIS) 80 Mg Tablet, 80 MG PO QDAY, #90 TAB 3 Refills Prov:PRESLEY BARTLETT MD 06/25/16 Reviewed Nurses Notes: Yes Old Medical Records Reviewed: Yes Hx Smoking: Yes Smoking Status: Current: Every Day Smoker, Light Tobacco Smoker Exposure to Second Hand Smoke?: Yes Hx Substance Use Disorder: No Hx Alcohol Use: Yes Family History of: HTN, Diabetes Constitutional Vital Sign - Last 24 Hours 05/17/17 15:05 Temp 99.1 Pulse 75 Resp 20 B/P (MAP) 144/77 Pulse Ox 98 O2 Delivery Nasal Cannula Physical Exam General Appearance: The patient is alert, has no immediate need for airway protection and no current signs of toxicity. Eyes: Pupils equal and round no injection. Respiratory: Chest is non tender, lungs are clear to auscultation. Cardiac: regular rate and rhythm Gastrointestinal: Abdomen is soft and non tender, no masses, bowel sounds normal. Extremities have full range of motion and are non tender. Skin: No rashes or lesions. DIFFERENTIAL DIAGNOSIS: After history and physical exam differential diagnosis was considered for ACS, electrolyte disturbance, infection, hypoglycemia Medical Decision Making Data Points Result Diagram: 05/17/17 1513 Laboratory Hematology Test 05/17/17 15:13 Potassium Level 4.6 mmol/L (3.5-5.0) EKG/Imaging EKG Interpretation 12 lead EKG: Rhythm: normal sinus rhythm [place]: normal QRS: normal ST segments: normal No U waves or hyperacute T waves Monitor Interpretation: Normal Sinus Rhythm ED Course/Re-evaluation ED Course Anxious that her potassium was low. EKG and potassium are normal. No chest pain or SOB. No fever/chills. States that she has anxiety about her potassium and wishes her PCM would just have a standing lab order to check it. Decision to Disposition Date: May 17, 2017 Decision to Disposition Time: 16:05 Depart Departure Latest Vital Signs Vital Signs Date Time Temp Pulse Resp B/P (MAP) Pulse Ox O2 Delivery O2 Flow Rate FiO2 05/17/17 15:05 99.1 75 20 144/77 98 Nasal Cannula Impression: Primary Impression: Palpitations Condition: Improved Disposition: HOME OR SELF-CARE Referrals: PRESLEY BARTLETT MD (PCP) Patient Instructions: Potassium Content of Foods List (GEN) SELINA MEDINA MD May 17, 2017 15:30
--- NOTE | 2017-05-17 15:36 | EKG ---
FACILITY: [facility] - [place] PATIENT NAME: BETTY CALDERON : [id number] MR: [id number] V: [id number] EXAM DATE: ORDERING PHYSICIAN: SELINA MEDINA TECHNOLOGIST: SAMIRA Test Reason : PALPITATIONS Blood Pressure : / mmHG Vent. Rate : 071 BPM Atrial Rate : 071 BPM P-R Int : 192 ms QRS Dur : 090 ms QT Int : 406 ms P-R-T Axes : 019 069 053 degrees QTc Int : 441 ms Normal sinus rhythm Normal ECG When compared with ECG of 11-MAY-2017 16:57, No significant change was found Confirmed by MARITO SIMMONS ([id number]) on 05/17/2017 8:03:47 PM Referred By: SOPR Confirmed By:MARITO SIMMONS
[2017-05-17 15:54] VITALS: BP 127/76
== END 2017-05-17 16:10 | disposition home or self-care (01) ==
LOC: ER 15:04
PROVIDERS: ATTEND Internal Medicine
DX: R00.2 Palpitations (principal)
CPT/HCPCS: 36415; 84132; 93005; 99283

== ENCOUNTER → 2017-05-20 | Outpatient (CLI) | payer MEDICAID ==
[2017-04-25 13:12] VITALS: BMI 28.2
== END ==
LOC: LAB 10:26
PROVIDERS: ATTEND Internal Medicine Nephrology
DX: N18.9 Chronic kidney disease, unspecified (principal); E87.6 Hypokalemia
CPT/HCPCS: 36415; 82310; 82374; 82435; 82565; 82947; 84132; 84295; 84520

== ENCOUNTER 2017-05-21 15:24 | Outpatient (RCR) | payer MEDICAID ==
[2017-04-25 13:12] VITALS: Wt 79.2 kg
[2017-04-29 13:35] VITALS: BP 122/75
--- NOTE | 2017-04-29 20:37 | ONCOLOGY FOLLOW UP NOTE ---
EVENT DATE: April 29, 2017 DIAGNOSES 1. Thrombocytosis. 2. Iron deficiency anemia. 3. Hypercholesterolemia. 4. Hypothyroidism. 5. Elevated white count. 6. Hypertension. 7. Diabetes. 8. Stage 4 chronic kidney disease. CHIEF COMPLAINT The patient is here today for followup of her iron deficiency anemia and thrombocytosis. HEMATOLOGY HISTORY The patient was diagnosed in November 2012 with iron deficiency anemia. Her ferritin on December 08, 2012 was 7. Serum iron was 15. TIBC was 451. Iron saturation was 3.3%. The patient started treatment with iron supplement 325 mg three times daily, which was decreased after that to twice daily because of the GI intolerance. She took her iron intermittently at that time. The patient had CBC done on April 03, 2015 which showed white count 10.8, hemoglobin 16.8 , hematocrit 52.9. Red blood cells were high at 6,180,000. MCV 85.7, platelets 521. Chem panel showed creatinine 1.9 with glomerular infiltration rate of 27.8. Her ferritin was 27. Serum protein electrophoresis was negative for monoclonal bands and JAK2 mutation analysis for [id number] mutation was negative. Erythrocyte sedimentation rate was 12. Fibrinogen was 518. Soluble transferrin receptor assay was high at 15.5. Ferritin was low at 11. CBC showed hemoglobin 16.2, hematocrit 51.4. Absolute retic. count was in the normal range. Platelet count was 515,000. Iron studies showed iron saturation 7.8, TIBC 450, serum iron 35 which is low. HISTORY OF PRESENT ILLNESS Patient is here today for followup of her anemia due to iron deficiency and thrombocytosis. She is complaining of sweating and runny nose. She has gas in her abdomen and occasional nausea. She has also pain in her shoulders. She is weak, tired and fatigued. Patient has been admitted to the hospital recently with hypokalemia. She is on potassium supplement currently. PAST MEDICAL HISTORY 1. Thrombocytosis. 2. Iron deficiency anemia. 3. Hypercholesterolemia. 4. Hypothyroidism. 5. Hypertension. 6. Diabetes mellitus. 7. Stage 4 chronic kidney disease. PAST SURGICAL HISTORY 1. Damir-thyroidectomy for goiter. 2. Cholecystectomy. 3. Tonsillectomy and adenoidectomy. 4. Left knee surgery. SOCIAL HISTORY The patient is with two children. She is disabled. She smoked three packs a day for nearly thirty-seven years. Denies any abuse of alcohol or illicit drugs, but she used to drink alcohol in the past, but not currently. FAMILY HISTORY Mother had some sort of cancer. Maternal cousin with breast cancer. Does not know her paternal family history. CURRENT MEDICATIONS 1. Levothyroxine. 2. Amlodipine. 3. Micardis. 4. Lipitor. 5. Baby aspirin 81 mg daily. ALLERGIES PENICILLIN caused hives, with OXYCODONE she felt like she was going blind, and with KETOROLAC she was also unable to see. ANTIDEPRESSANT which caused strange behavior. ARTIFICIAL SWEETENERS which caused migraines. REVIEW OF SYSTEMS CONSTITUTIONAL: No appetite or weight change. No fever, chills. The patient has sweating. No recent infection. HEENT: Ears: No tinnitus or hearing problem. Nose: She has nasal discharge. No epistaxis. Throat: No sore throat or mouth ulcers. Eyes: No diplopia or visual changes. RESPIRATORY: No shortness of breath. No cough, expectoration or hemoptysis. CARDIOVASCULAR: No chest pain, orthopnea, or paroxysmal nocturnal dyspnea (PND) . No edema. No palpitations. GASTROINTESTINAL: She has gaseous distention and nausea. No vomiting. No diarrhea or constipation. No change in bowel movements. No heartburn or swallowing difficulties. No abdominal pain. No jaundice. No hematemesis, melena or rectal bleeding. GENITOURINARY: No hematuria or dysuria. MUSCULOSKELETAL: The patient has pain in the shoulders. NEUROLOGICAL: No tingling or numbness in the hands or feet. No headaches or convulsions. HEMATOLOGIC/LYMPHATIC: No bleeding or easy bruising. She is weak, tired and fatigued. No enlarged lymph nodes. SKIN: No skin rash or lumps. PSYCHIATRIC: No anxiety or depression. PHYSICAL EXAMINATION GENERAL: Looks stable. Well-developed, well-nourished, and in no acute distress. VITAL SIGNS: Blood pressure 122/75, pulse 70 per minute, respirations 16 per minute, temperature 99.2, pulse ox. 96% on 3L oxygen. HEENT: Head: Atraumatic. No sinus tenderness to palpation. Eyes: No icterus or conjunctivitis. Mouth and throat: No oral thrush or mucositis. NECK: Supple. No cervical or supraclavicular lymphadenopathy. LUNGS: Clear to auscultation and percussion bilaterally. HEART: Regular rate and rhythm. No gallops, murmurs, clicks or rubs. ABDOMEN: Soft and lax. No tenderness. No hepatosplenomegaly. No masses. EXTREMITIES: No cyanosis, clubbing or edema. LYMPHATICS: No peripheral lymphadenopathy. NEUROLOGICAL: Conscious, alert and oriented times three. No focal motor or sensory deficits. PSYCHIATRIC: Mood and affect appear normal. SKIN: No skin rash, bruise or purpuric eruption. DIAGNOSTIC DATA CBC showed white count 7.5, hemoglobin 11.7, hematocrit 35.3, platelets 483, 000. Creatinine 1.7. ASSESSMENT 1. Thrombocytosis, could be due to her iron deficiency. Her current platelet count is 483,000, which is down from 515,000. No further workup is required. Will continue to monitor her platelet count. 2. Iron deficiency anemia. Her ferritin was 11 initially. Iron studies were not done and I am planning to run her iron studies today to decide about further treatment. Her transferrin receptor assay was high at 15.5, which dropped to 6.1 with iron supplementation. I am planning to see her again in three months with CBC, iron studies with ferritin. 3. Hypothyroidism after hemithyroidectomy, on Synthroid. 4. Hypertension, on treatment. 5. Diabetes, on treatment. 8. Stage 4 chronic kidney disease. PLAN 1. Run iron studies today. 2. The patient to return in three months with CBC, iron studies with ferritin. 3. The patient to contact us for any new concerns or complaints. KRISTAN
[2017-05-07 13:09] VITALS: BP 136/73
--- NOTE | 2017-05-07 22:04 | ONCOLOGY FOLLOW UP NOTE ---
EVENT DATE: May 07, 2017 DIAGNOSES 1. Thrombocytosis. 2. Iron deficiency anemia. 3. Hypercholesterolemia. 4. Hypothyroidism. 5. Elevated white count. 6. Hypertension. 7. Diabetes. 8. Stage 4 chronic kidney disease. CHIEF COMPLAINT The patient is here today for followup of her thrombocytosis and iron deficiency. HEMATOLOGY HISTORY The patient was diagnosed in November 2012 with iron deficiency anemia. Her ferritin on December 08, 2012 was 7. Serum iron was 15. TIBC was 451. Iron saturation was 3.3%. The patient started treatment with iron supplement 325 mg three times daily, which was decreased after that to twice daily because of the GI intolerance. She took her iron intermittently at that time. The patient had CBC done on April 03, 2015 which showed white count 10.8, hemoglobin 16.8 , hematocrit 52.9. Red blood cells were high at 6,180,000. MCV 85.7, platelets 521. Chem panel showed creatinine 1.9 with glomerular infiltration rate of 27.8. Her ferritin was 27. Serum protein electrophoresis was negative for monoclonal bands and JAK2 mutation analysis for [id number] mutation was negative. Erythrocyte sedimentation rate was 12. Fibrinogen was 518. Soluble transferrin receptor assay was high at 15.5. Ferritin was low at 11. CBC showed hemoglobin 16.2, hematocrit 51.4. Absolute retic. count was in the normal range. Platelet count was 515,000. Iron studies showed iron saturation 7.8, TIBC 450, serum iron 35 which is low. HISTORY OF PRESENT ILLNESS Patient is here today for followup of her thrombocytosis and iron deficiency anemia. Patient has been in the ER recently for urinary symptoms, and she had a urinalysis which came back normal. She has some dry cough. She has nausea and diarrhea. She has pain in her left knee. She has also tingling and numbness in the hands. She is weak, tired and fatigued, and she feels she is stressed out. PAST MEDICAL HISTORY 1. Thrombocytosis. 2. Iron deficiency anemia. 3. Hypercholesterolemia. 4. Hypothyroidism. 5. Hypertension. 6. Diabetes mellitus. 7. Stage 4 chronic kidney disease. PAST SURGICAL HISTORY 1. Damir-thyroidectomy for goiter. 2. Cholecystectomy. 3. Tonsillectomy and adenoidectomy. 4. Left knee surgery. SOCIAL HISTORY The patient is with two children. She is disabled. She smoked three packs a day for nearly thirty-seven years. Denies any abuse of alcohol or illicit drugs, but she used to drink alcohol in the past, but not currently. FAMILY HISTORY Mother had some sort of cancer. Maternal cousin with breast cancer. Does not know her paternal family history. CURRENT MEDICATIONS 1. Levothyroxine. 2. Amlodipine. 3. Micardis. 4. Lipitor. 5. Baby aspirin 81 mg daily. ALLERGIES PENICILLIN caused hives, with OXYCODONE she felt like she was going blind, and with KETOROLAC she was also unable to see. ANTIDEPRESSANT which caused strange behavior. ARTIFICIAL SWEETENERS which caused migraines. REVIEW OF SYSTEMS CONSTITUTIONAL: No appetite or weight change. No fever, chills. The patient has sweating. No recent infection. HEENT: Ears: No tinnitus or hearing problem. Nose: She has nasal discharge. No epistaxis. Throat: No sore throat or mouth ulcers. Eyes: No diplopia or visual changes. RESPIRATORY: No shortness of breath. She has cough. No expectoration or hemoptysis. CARDIOVASCULAR: No chest pain, orthopnea, or paroxysmal nocturnal dyspnea (PND) . No edema. No palpitations. GASTROINTESTINAL: She has nausea and diarrhea. No vomiting. No constipation. No change in bowel movements. No heartburn or swallowing difficulties. No abdominal pain. No jaundice. No hematemesis, melena or rectal bleeding. GENITOURINARY: No hematuria or dysuria. MUSCULOSKELETAL: She has left knee pain. NEUROLOGICAL: No tingling or numbness in the hands or feet. No headaches or convulsions. HEMATOLOGIC/LYMPHATIC: No bleeding or easy bruising. She is weak, tired and fatigued. No enlarged lymph nodes. She has tingling and numbness in the hands. She is stressed out. SKIN: No skin rash or lumps. PSYCHIATRIC: No anxiety or depression. PHYSICAL EXAMINATION GENERAL: Looks stable. Well-developed, well-nourished, and in no acute distress. HEENT: Head: Atraumatic. No sinus tenderness to palpation. Eyes: No icterus or conjunctivitis. Mouth and throat: No oral thrush or mucositis. NECK: Supple. No cervical or supraclavicular lymphadenopathy. LUNGS: Clear to auscultation and percussion bilaterally. HEART: Regular rate and rhythm. No gallops, murmurs, clicks or rubs. ABDOMEN: Soft and lax. No tenderness. No hepatosplenomegaly. No masses. EXTREMITIES: No cyanosis, clubbing or edema. LYMPHATICS: No peripheral lymphadenopathy. NEUROLOGICAL: Conscious, alert and oriented times three. No focal motor or sensory deficits. PSYCHIATRIC: Mood and affect appear normal. SKIN: No skin rash, bruise or purpuric eruption. DIAGNOSTIC DATA Ferritin is normal at 76, iron 51, TIBC 258, iron saturation 19.8%. CBC showed white count 11.3, hemoglobin 11.4, hematocrit 34.1, platelets 489,000. ASSESSMENT 1. Thrombocytosis, could be due to her iron deficiency, which has corrected, but she continues to have higher platelet count. Her current platelet count is 489,000, which is on the rise. I am planning to check JAK2 mutation to rule out the possibility of myeloproliferative disorder. I explained that to the patient. She is agreeable with the plan of management. If the test will come back positive I do not think there will be an indication of treatment at the moment given that her platelet count is below 600,000. 2. Iron deficiency anemia. Her initial ferritin was 11, but currently iron studies are normal. 3. Hypothyroidism after hemithyroidectomy, on Synthroid. 4. Hypertension. 5. Diabetes, on treatment. 8. Stage 4 chronic kidney disease. PLAN 1. JAK2 mutation analysis. 2. Patient to keep her scheduled appointment in three months. 3. Check CBC and iron studies with ferritin with her next appointment. 4. Patient is to contact us for any new concern or complaints. [facility]
[2017-05-14 11:08] VITALS: BP 137/78
--- NOTE | 2017-05-14 17:22 | ONCOLOGY FOLLOW UP NOTE ---
EVENT DATE: May 14, 2017 DIAGNOSES 1. Thrombocytosis. 2. Iron deficiency anemia. 3. Hypercholesterolemia. 4. Hypothyroidism. 5. Elevated white count. 6. Hypertension. 7. Diabetes. 8. Stage 4 chronic kidney disease. CHIEF COMPLAINT The patient is here today for followup of her thrombocytosis and iron deficiency. HEMATOLOGY HISTORY The patient was diagnosed in November 2012 with iron deficiency anemia. Her ferritin on December 08, 2012 was 7. Serum iron was 15. TIBC was 451. Iron saturation was 3.3%. The patient started treatment with iron supplement 325 mg three times daily, which was decreased after that to twice daily because of the GI intolerance. She took her iron intermittently at that time. The patient had CBC done on April 03, 2015 which showed white count 10.8, hemoglobin 16.8 , hematocrit 52.9. Red blood cells were high at 6,180,000. MCV 85.7, platelets 521. Chem panel showed creatinine 1.9 with glomerular infiltration rate of 27.8. Her ferritin was 27. Serum protein electrophoresis was negative for monoclonal bands and JAK2 mutation analysis for V617F mutation was negative. Erythrocyte sedimentation rate was 12. Fibrinogen was 518. Soluble transferrin receptor assay was high at 15.5. Ferritin was low at 11. CBC showed hemoglobin 16.2, hematocrit 51.4. Absolute retic. count was in the normal range. Platelet count was 515,000. Iron studies showed iron saturation 7.8, TIBC 450, serum iron 35 which is low. HISTORY OF PRESENT ILLNESS Patient is here today for followup of her thrombocytosis and iron deficiency anemia. Patient has been in the ER recently for urinary symptoms. She is complaining of having hypokalemia. She is complaining of cough with expectoration currently and runny nose. She has loose stools and occasional headache. Other than that she is stable. PAST MEDICAL HISTORY 1. Thrombocytosis. 2. Iron deficiency anemia. 3. Hypercholesterolemia. 4. Hypothyroidism. 5. Hypertension. 6. Diabetes mellitus. 7. Stage 4 chronic kidney disease. PAST SURGICAL HISTORY 1. Damir-thyroidectomy for goiter. 2. Cholecystectomy. 3. Tonsillectomy and adenoidectomy. 4. Left knee surgery. SOCIAL HISTORY The patient is with two children. She is disabled. She smoked three packs a day for nearly thirty-seven years. Denies any abuse of alcohol or illicit drugs, but she used to drink alcohol in the past, but not currently. FAMILY HISTORY Mother had some sort of cancer. Maternal cousin with breast cancer. Does not know her paternal family history. CURRENT MEDICATIONS 1. Levothyroxine. 2. Amlodipine. 3. Micardis. 4. Lipitor. 5. Baby aspirin 81 mg daily. ALLERGIES PENICILLIN caused hives, with OXYCODONE she felt like she was going blind, and with KETOROLAC she was also unable to see. ANTIDEPRESSANT which caused strange behavior. ARTIFICIAL SWEETENERS which caused migraines. REVIEW OF SYSTEMS CONSTITUTIONAL: No appetite or weight change. No fever, chills. The patient has sweating. No recent infection. HEENT: Ears: No tinnitus or hearing problem. Nose: She has nasal discharge. No epistaxis. Throat: No sore throat or mouth ulcers. Eyes: No diplopia or visual changes. RESPIRATORY: No shortness of breath. She has cough with expectoration. No hemoptysis. CARDIOVASCULAR: No chest pain, orthopnea, or paroxysmal nocturnal dyspnea (PND) . No edema. No palpitations. GASTROINTESTINAL: She has loose stools. No vomiting. No constipation. No change in bowel movements. No heartburn or swallowing difficulties. No abdominal pain. No jaundice. No hematemesis, melena or rectal bleeding. GENITOURINARY: No hematuria or dysuria. MUSCULOSKELETAL: She has left knee pain. NEUROLOGICAL: No tingling or numbness in the hands or feet. She has occasional headache. No convulsions. HEMATOLOGIC/LYMPHATIC: No bleeding or easy bruising. She is weak, tired and fatigued. No enlarged lymph nodes. She has tingling and numbness in the hands. She is stressed out. SKIN: No skin rash or lumps. PSYCHIATRIC: No anxiety or depression. PHYSICAL EXAMINATION GENERAL: Looks stable. Well-developed, well-nourished, and in no acute distress. HEENT: Head: Atraumatic. No sinus tenderness to palpation. Eyes: No icterus or conjunctivitis. Mouth and throat: No oral thrush or mucositis. NECK: Supple. No cervical or supraclavicular lymphadenopathy. LUNGS: Clear to auscultation and percussion bilaterally. HEART: Regular rate and rhythm. No gallops, murmurs, clicks or rubs. ABDOMEN: Soft and lax. No tenderness. No hepatosplenomegaly. No masses. EXTREMITIES: No cyanosis, clubbing or edema. LYMPHATICS: No peripheral lymphadenopathy. NEUROLOGICAL: Conscious, alert and oriented times three. No focal motor or sensory deficits. PSYCHIATRIC: Mood and affect appear normal. SKIN: No skin rash, bruise or purpuric eruption. DIAGNOSTIC DATA Iron saturation 16.5%, TIBC 285. Serum iron 47 and potassium level was normal at 4.3. ASSESSMENT 1. Thrombocytosis, could be due to her iron deficiency, which has been corrected, but she continues to have higher platelet count. Her last platelet count was 489,000. JAK2 mutation analysis was done for V617F mutation and it came back negative. I am planning to request the JAK2 mutation for Exon 12. If that test will come back negative I am planning to check MPL mutation and the calretinin mutation. Patient has an appointment next week to discuss the result and I will keep that appointment if the result is positive. If it is negative I will see her in three months with CBC at that time. 2. Iron deficiency anemia, corrected. 3. Hypothyroidism after hemithyroidectomy, on Synthroid. 4. Hypertension. 5. Diabetes mellitus. 6. Stage 4 chronic kidney disease. PLAN 1. Continue followup. 2. Patient to return in one week for further evaluation and management. 3. Patient is to contact us for any new concern or complaints. [facility]
[~2017-05-21 15:24] MED LIST changes: -RANI-324 PO; +RANI-366 PO
[2017-05-31] MEDS ORDERED: ERGO500037 PO (13:03)
[2017-05-31] MEDS ORDERED: SERT25TA90 PO (13:18)
[2017-07-09] MEDS ORDERED: CLIN300C99 PO (11:21)
[2017-07-15] MEDS ORDERED: LEV112 PO (10:10)
[2017-07-28] MEDS ORDERED: ALB18R INH ×2 (14:55→15:12)
== END 2017-07-28 ==
LOC: ONC 15:24
PROVIDERS: ATTEND Internal Medicine Hematology
DX: D47.3 Essential (hemorrhagic) thrombocythemia (principal); D50.9 Iron deficiency anemia, unspecified; E03.9 Hypothyroidism, unspecified; I12.9 Hypertensive chronic kidney disease with stage 1 through stage 4 chronic kidney disease, or unspecified chronic kidney disease; E11.22 Type 2 diabetes mellitus with diabetic chronic kidney disease; N18.4 Chronic kidney disease, stage 4 (severe); E78.00 Pure hypercholesterolemia, unspecified; D72.829 Elevated white blood cell count, unspecified; R53.1 Weakness; R53.83 Other fatigue; Z87.891 Personal history of nicotine dependence
CPT/HCPCS: 83540; 83550; G0463; 36415; 81403; 82040; 82310; 82374; 82435; 82565; 82570; 82728; 82947; 83735; 83970; 84100; 84132; 84156; 84295; 84520; 85025; 99212

== ENCOUNTER → 2017-05-24 | Outpatient (CLI) | payer MEDICAID ==
[2017-04-25 13:12] VITALS: BMI 28.2
[~2017-05-24] MED LIST changes: +RANI-324 PO; -RANI-366 PO
== END ==
LOC: LAB 09:25
PROVIDERS: ATTEND Internal Medicine Nephrology
DX: N18.3 Chronic kidney disease, stage 3 (moderate) (principal); E87.6 Hypokalemia
CPT/HCPCS: 36415; 82310; 82374; 82435; 82565; 82947; 84132; 84295; 84520

== ENCOUNTER → 2017-05-27 | Outpatient (CLI) | payer MEDICAID ==
[2017-04-25 13:12] VITALS: BMI 28.2
== END ==
LOC: LAB 13:16
PROVIDERS: ATTEND Internal Medicine Nephrology
DX: N18.3 Chronic kidney disease, stage 3 (moderate) (principal); E87.6 Hypokalemia
CPT/HCPCS: 36415; 82310; 82374; 82435; 82565; 82947; 84132; 84295; 84520

== ENCOUNTER → 2017-05-31 | Outpatient (CLI) | payer MEDICAID ==
[2017-04-25 13:12] VITALS: BMI 28.2
[~2017-05-31] MED LIST changes: +ERGO500037 PO; +SERT25TA90 PO
== END ==
LOC: LAB 13:33
PROVIDERS: ATTEND Internal Medicine Nephrology
DX: N18.3 Chronic kidney disease, stage 3 (moderate) (principal); E87.6 Hypokalemia
CPT/HCPCS: 36415; 82310; 82374; 82435; 82565; 82947; 84132; 84295; 84520

== ENCOUNTER → 2017-06-01 | Outpatient (CLI) | payer MEDICAID ==
[2017-04-25 13:12] VITALS: BMI 28.2
[~2017-06-01] MED LIST changes: +REGADENOSON 0.4 MG/5 ML SYR ONE
--- NOTE | 2017-06-01 13:59 | RADIOLOGY IMAGING REPORT ---
FACILITY: [facility] [place] PATIENT NAME: Malu Mora : 1960 MR: [id number] V: [id number] EXAM DATE: ORDERING PHYSICIAN: SHAHNAZ VELÁSQUEZ TECHNOLOGIST: Location: [facility] Patient: Malu Mora : 1960 Visit/Account:[id number] Date of Sevice: 06/01/2017 EXAMINATION: Single isotope SPECT imaging with regadenoson infusion and gated SPECT imaging. DATE OF EXAMINATION: June 01, 2017. DATE OF INTERPRETATION: June 01, 2017. REQUESTING PHYSICIAN: SHAHNAZ VELÁSQUEZ. INDICATION: The patient is a 57-year-old female evaluated for CAD. PROCEDURE: After informed consent the patient received an intravenous injection of 12.8 mCi of Tc-99 m sestamibi followed at an appropriate time interval by rest imaging. The patient then subsequently received an intravenous infusion of 0.4 mg of regadenoson per protocol without complication. Resting heart rate was 60 bpm with a peak heart rate of 126 bpm. Blood pressure at rest was 131 / 64 and fo llowing infusion was 158 / 67. Baseline EKG demonstrates normal sinus rhythm. There were no diagnos tic EKG changes of ischemia following infusion. Symptoms were nonspecific. The patient then receive d an intravenous injection of 30 mCi of Tc-99m sestamibi followed by stress imaging. RAW DATA: Examination of the summed raw data revealed a good quality study. MYOCARDIAL PERFUSION: The tomographic images demonstrate normal perfusion both at rest and at stress . There is no evidence of ischemia or infarction. GATED IMAGES: The gated images demonstrate a normal ejection fraction at 60% with normal wall motion . IMPRESSION: 1. Baseline EKG shows normal sinus rhythm. At peak stress there is 0.[address] depression in infero lateral leads. This is technically nondiagnostic. 2. Normal myocardial perfusion scan. 3. Normal LV systolic function; LVEF 60%. 4. Based on the results of this exam, the patient appears to be at low risk for future cardiovascular events. Report Dictated By: Jed Cho MD at 06/01/2017 1:53 PM Report E-Signed By: Jed Cho MD at 06/01/2017 1:55 PM WSN:[id number]
== END ==
LOC: NUC 07:02
PROVIDERS: ATTEND Internal Medicine Cardiovascular Disease
DX: R07.2 Precordial pain (principal)
CPT/HCPCS: 78452; 93017; A9500; J2785

== ENCOUNTER → 2017-06-28 | Outpatient (CLI) | payer MEDICAID ==
[2017-04-25 13:12] VITALS: BMI 28.2
[~2017-06-28] MED LIST changes: -RANI-324 PO; +RANI-366 PO; -REGADENOSON 0.4 MG/5 ML SYR ONE
== END ==
LOC: LAB 13:32
PROVIDERS: ATTEND Internal Medicine
DX: E87.6 Hypokalemia (principal); N18.4 Chronic kidney disease, stage 4 (severe)
CPT/HCPCS: 36415; 82310; 82374; 82435; 82565; 82947; 84132; 84295; 84520

== ENCOUNTER → 2017-07-14 | Outpatient (CLI) | payer MEDICAID ==
[2017-04-25 13:12] VITALS: BMI 28.2
[~2017-07-14] MED LIST changes: +LEV112 PO
[2017-07-14 08:30] LABS: PLATELET COUNT, AUTOMATED 433 K/uL (150-450)
== END ==
LOC: LAB 07:59
PROVIDERS: ATTEND Internal Medicine
DX: N18.4 Chronic kidney disease, stage 4 (severe) (principal); K21.9 Gastro-esophageal reflux disease without esophagitis; E78.5 Hyperlipidemia, unspecified; E87.6 Hypokalemia; E11.9 Type 2 diabetes mellitus without complications; E55.9 Vitamin D deficiency, unspecified
CPT/HCPCS: 36415; 81001; 82040; 82247; 82306; 82310; 82374; 82435; 82465; 82565; 82947; 83036; 83718; 84075; 84132; 84155; 84295; 84443; 84450; 84460; 84478; 84520; 85025

== ENCOUNTER → 2017-07-30 | Outpatient (CLI) | payer MEDICAID ==
[2017-04-25 13:12] VITALS: BMI 28.2
[2017-07-30 11:05] LABS: PLATELET COUNT, AUTOMATED 437 K/uL (150-450)
== END ==
LOC: LAB 10:44
PROVIDERS: ATTEND Internal Medicine Hematology
DX: D47.3 Essential (hemorrhagic) thrombocythemia (principal); E61.1 Iron deficiency
CPT/HCPCS: 36415; 82728; 83540; 83550; 85025

== ENCOUNTER 2017-08-05 13:17 | Outpatient (RCR) | payer MEDICAID ==
[2017-04-25 13:12] VITALS: Wt 79.8 kg
[2017-08-05 13:33] VITALS: BP 132/76
--- NOTE | 2017-08-05 19:48 | ONCOLOGY FOLLOW UP NOTE ---
EVENT DATE: August 05, 2017 DIAGNOSES 1. Thrombocytosis. 2. Iron deficiency anemia. 3. Hypercholesterolemia. 4. Hypothyroidism. 5. Elevated white count. 6. Hypertension. 7. Diabetes. 8. Stage 4 chronic kidney disease. CHIEF COMPLAINT The patient is here today for followup of her thrombocytosis and iron deficiency. HEMATOLOGY HISTORY The patient was diagnosed in November 2012 with iron deficiency anemia. Her ferritin on December 08, 2012 was 7. Serum iron was 15. TIBC was 451. Iron saturation was 3.3%. The patient started treatment with iron supplement 325 mg three times daily, which was decreased after that to twice daily because of the GI intolerance. She took her iron intermittently at that time. The patient had CBC done on April 03, 2015 which showed white count 10.8, hemoglobin 16.8 , hematocrit 52.9. Red blood cells were high at 6,180,000. MCV 85.7, platelets 521. Chem panel showed creatinine 1.9 with glomerular infiltration rate of 27.8. Her ferritin was 27. Serum protein electrophoresis was negative for monoclonal bands and JAK2 mutation analysis for V617F mutation was negative. Erythrocyte sedimentation rate was 12. Fibrinogen was 518. Soluble transferrin receptor assay was high at 15.5. Ferritin was low at 11. CBC showed hemoglobin 16.2, hematocrit 51.4. Absolute retic. count was in the normal range. Platelet count was 515,000. Iron studies showed iron saturation 7.8, TIBC 450, serum iron 35 which is low. HISTORY OF PRESENT ILLNESS Patient is here today for followup of her thrombocytosis and iron deficiency anemia. Patient is complaining of fevers, chills and sweating. She has nasal discharge. She has cough with expectoration, shortness of breath and occasional wheezing from her COPD, but other than that she is doing fine. PAST MEDICAL HISTORY 1. Thrombocytosis. 2. Iron deficiency anemia. 3. Hypercholesterolemia. 4. Hypothyroidism. 5. Hypertension. 6. Diabetes mellitus. 7. Stage 4 chronic kidney disease. PAST SURGICAL HISTORY 1. Damir-thyroidectomy for goiter. 2. Cholecystectomy. 3. Tonsillectomy and adenoidectomy. 4. Left knee surgery. SOCIAL HISTORY The patient is with two children. She is disabled. She smoked three packs a day for nearly thirty-seven years. Denies any abuse of alcohol or illicit drugs, but she used to drink alcohol in the past, but not currently. FAMILY HISTORY Mother had some sort of cancer. Maternal cousin with breast cancer. Does not know her paternal family history. CURRENT MEDICATIONS 1. Levothyroxine. 2. Amlodipine. 3. Micardis. 4. Lipitor. 5. Baby aspirin 81 mg daily. ALLERGIES 1. PENICILLIN caused hives. 2. OXYCODONE. She felt like she was going blind. 3. KETOROLAC. She was also unable to see. 4. ANTIDEPRESSANT which caused strange behavior. 5. ARTIFICIAL SWEETENERS which caused migraines. REVIEW OF SYSTEMS CONSTITUTIONAL: No appetite or weight change. She has occasional fever, chills and sweating. HEENT: Ears: No tinnitus or hearing problem. Nose: She has nasal discharge. No epistaxis. Throat: No sore throat or mouth ulcers. Eyes: No diplopia or visual changes. RESPIRATORY: She has cough with expectoration, shortness of breath and occasional wheezing from COPD. No hemoptysis. CARDIOVASCULAR: No chest pain, orthopnea, or paroxysmal nocturnal dyspnea (PND) . No edema. No palpitations. GASTROINTESTINAL: She has loose stools. No vomiting. No constipation. No change in bowel movements. No heartburn or swallowing difficulties. No abdominal pain. No jaundice. No hematemesis, melena or rectal bleeding. GENITOURINARY: No hematuria or dysuria. MUSCULOSKELETAL: She has left knee pain. NEUROLOGICAL: No tingling or numbness in the hands or feet. She has occasional headache. No convulsions. HEMATOLOGIC/LYMPHATIC: No bleeding or easy bruising. She is weak, tired and fatigued. No enlarged lymph nodes. She has tingling and numbness in the hands. She is stressed out. SKIN: No skin rash or lumps. PSYCHIATRIC: No anxiety or depression. PHYSICAL EXAMINATION GENERAL: Looks stable. Well-developed, well-nourished, and in no acute distress. VITAL SIGNS: Blood pressure 132/76, pulse 82 per minute, respirations 16 per minute, temperature 98.6, pulse ox 90% on 3L oxygen. HEENT: Head: Atraumatic. No sinus tenderness to palpation. Eyes: No icterus or conjunctivitis. Mouth and throat: No oral thrush or mucositis. NECK: Supple. No cervical or supraclavicular lymphadenopathy. LUNGS: Clear to auscultation and percussion bilaterally. HEART: Regular rate and rhythm. No gallops, murmurs, clicks or rubs. ABDOMEN: Soft and lax. No tenderness. No hepatosplenomegaly. No masses. EXTREMITIES: No cyanosis, clubbing or edema. LYMPHATICS: No peripheral lymphadenopathy. NEUROLOGICAL: Conscious, alert and oriented times three. No focal motor or sensory deficits. PSYCHIATRIC: Mood and affect appear normal. SKIN: No skin rash, bruise or purpuric eruption. DIAGNOSTIC DATA CBC showed white count 11.4, hemoglobin 13.7, hematocrit 39.5, platelets 437, 000 which is down from 489,000. BUN is 26, creatinine 1.8, blood sugar 127. ASSESSMENT 1. Thrombocytosis. Most probably due to iron deficiency anemia, and after correcting her iron deficiency her platelet count is trending down. Her current platelet count is 437,000, which is down from 489,000. JAK2 mutation analysis for V617F and Exon 12 mutations came back negative, ruling out the possibility of underlying essential thrombocythemia or myeloproliferative disorder. Given that the patient's hematological problem is resolving, I am planning to refer the patient back to Dr. Mendiola, and I will be more than happy to see her in the future for any hematological problems. 2. Iron deficiency anemia, corrected. 3. Hypothyroidism after hemithyroidectomy, on Synthroid. 4. Hypertension. 5. Diabetes mellitus. 6. Stage 4 chronic kidney disease with current creatinine 1.8. PLAN 1. Patient to return on a p.r.n. basis. 2. patient to return back to Dr. Mendiola. 3. Patient is to contact us for any new concern or complaints. [facility]
== END 2017-08-10 10:06 | disposition home or self-care (01) ==
LOC: ONC 13:17
PROVIDERS: ATTEND Internal Medicine Hematology
DX: D47.3 Essential (hemorrhagic) thrombocythemia (principal); D50.9 Iron deficiency anemia, unspecified; E03.9 Hypothyroidism, unspecified; I12.9 Hypertensive chronic kidney disease with stage 1 through stage 4 chronic kidney disease, or unspecified chronic kidney disease; E11.22 Type 2 diabetes mellitus with diabetic chronic kidney disease; N18.4 Chronic kidney disease, stage 4 (severe); E78.00 Pure hypercholesterolemia, unspecified; D72.829 Elevated white blood cell count, unspecified; R53.1 Weakness; R53.83 Other fatigue; Z87.891 Personal history of nicotine dependence; J44.9 Chronic obstructive pulmonary disease, unspecified
CPT/HCPCS: 99212

== ENCOUNTER → 2017-09-22 | Outpatient (CLI) | payer MEDICAID ==
[2017-04-25 13:12] VITALS: BMI 28.2
[2017-09-22 12:36] LABS: PLATELET COUNT, AUTOMATED 382 K/uL (150-450)
== END ==
LOC: LAB 12:11
PROVIDERS: ATTEND Internal Medicine Nephrology
DX: I12.9 Hypertensive chronic kidney disease with stage 1 through stage 4 chronic kidney disease, or unspecified chronic kidney disease (principal); N18.3 Chronic kidney disease, stage 3 (moderate); E87.6 Hypokalemia; N25.81 Secondary hyperparathyroidism of renal origin; D50.9 Iron deficiency anemia, unspecified
CPT/HCPCS: 36415; 82040; 82310; 82374; 82435; 82565; 82570; 82947; 83735; 83970; 84100; 84132; 84156; 84295; 84520; 85025

== ENCOUNTER → 2017-10-22 | Outpatient (CLI) | payer MEDICAID ==
[2017-04-25 13:12] VITALS: BMI 28.2
[~2017-10-22] MED LIST changes: +LEVO250T41 PO; +LEVO750T44 PO; +TELM20TA4 PO
[2017-10-22 16:00] LABS: PLATELET COUNT, AUTOMATED 398 K/uL (150-450)
== END ==
LOC: LAB 12:05
PROVIDERS: ATTEND Internal Medicine
DX: N18.4 Chronic kidney disease, stage 4 (severe) (principal); I10 Essential (primary) hypertension; E11.22 Type 2 diabetes mellitus with diabetic chronic kidney disease; E03.9 Hypothyroidism, unspecified; E55.9 Vitamin D deficiency, unspecified
CPT/HCPCS: 36415; 81001; 82040; 82247; 82306; 82310; 82374; 82435; 82465; 82565; 82947; 83036; 83718; 84075; 84132; 84155; 84295; 84443; 84450; 84460; 84478; 84520; 85025

== ENCOUNTER 2017-11-16 18:21 | Emergency (ER) | payer MEDICAID ==
[2017-04-25 13:12] VITALS: Wt 80.4 kg
[~2017-11-16 18:21] MED LIST changes: +AMLO-113 PO; -AMLO-99 PO
[2017-11-16 18:28] VITALS: BP 144/80
[2017-11-16] MEDS ORDERED: CLIN300C99 PO (18:48)
--- NOTE | 2017-11-16 18:51 | ER Report ---
History and Physical Time Seen By MD: 18:46 Hx. of Stated Complaint: LEFT LOWER DENTAL PAIN SINCE YESTREDAY HPI/ROS CHIEF COMPLAINT: Right lower dental fracture with surrounding abscess HISTORY OF PRESENT ILLNESS: Patient is a 57-year-old female here with complaints of right lower molar fracture, pain which started this evening while the patient was eating dinner. Patient has poor dentition and has had multiple dental abscesses and dental fractures in the past. She is actively attempting to find a dentist that accepts Medicaid so that she is able to have definitive management with dental extraction. Patient is afebrile, hemodynamically stable. She denies facial swelling, difficulty swallowing, difficulty breathing, fevers or chills at home. Patient declined dental block or analgesia time of evaluation. REVIEW OF SYSTEMS: Neuro no focal neurological deficits or cranial nerve deficits Patient denies difficulty swallowing or difficulty breathing Patient is afebrile, hemodynamically stable Dental patient has poor dentition, right lower molar fracture with significant pain and surrounding swelling without focal pocket of fluctuance Allergies: Coded Allergies: Penicillins (Verified Allergy, Intermediate, HIVES, 05/11/17) oxycodone HCl (Verified Allergy, Mild, FELT SHE WAS GOING BLIND, 05/11/17) Sulfa (Sulfonamide Antibiotics) (Verified Allergy, Unknown, 05/11/17) doxycycline (Verified Allergy, Unknown, increased icp, 05/11/17) ketorolac tromethamine (Verified Adverse Reaction, Unknown, FELT BAD, DIFFICULTY SEEING, 05/11/17) Uncoded Allergies: ARTIFICIAL SWEETNERS (Allergy, Severe, MIGRAINES, 11/18/12) due to neurologist instructions ANTIDEPRESSANTS (Adverse Reaction, Intermediate, STRANGE BEHAVIOR, 11/18/12) STEROIDS (Adverse Reaction, Mild, CANNOT TAKE DUE TO HER PSEUDO TUMOR CEREBRI, 05/18/12) Home Meds Active Scripts Clindamycin Hcl (CLINDAMYCIN HCL) 300 Mg Capsule, 300 MG PO TID for 10 Days, #30 CAPSULE Prov:RAFAEL MORILLO DO 11/16/17 Levofloxacin 250 Mg Tab (LEVOFLOXACIN 250 MG TAB) 250 Mg Tablet, 250 MG PO DIRECTED, #6 TAB 2 tablets day 1 than 1 tablet a day Prov:PRESLEY BARTLETT MD 10/25/17 Levothyroxine Sodium (LEVOTHYROXINE SODIUM) 100 Mcg Tablet, 100 MCG PO QDAY, #90 TAB 2 Refills Prov:PRESLEY BARTLTET MD 10/25/17 Telmisartan (MICARDIS) 20 Mg Tablet, 20 MG PO QDAY, #30 TAB 6 Refills Prov:PRESLEY BARTLETT MD 10/25/17 Albuterol Sulfate (VENTOLIN HFA) 18 Gm Inh, 2 PUFF INH Q4-6H, #1 INH 6 Refills Prov:PRESLEY BARTLETT MD 07/28/17 Lancets (FREESTYLE LANCETS) 1 Each Each, BOX MC QDAY, #1 4 Refills Patient to test blood glucose once a day Prov:PRESLEY BARTLETT MD 05/12/17 Diazepam (VALIUM) 2 Mg Tablet, 2 MG PO QHS PRN for ANXIETY, #30 TAB 0 Refills Prov:PRESLEY BARTLETT MD 05/12/17 Atorvastatin Calcium (ATORVASTATIN CALCIUM) 20 Mg Tablet, 1 TAB PO QDAY, #90 TAB 3 Refills Prov:PRESLEY BARTLETT MD 05/12/17 Sitagliptin Phosphate (JANUVIA) 25 Mg Tablet, 25 MG PO QDAY, #90 TAB 3 Refills Prov:PRESLEY BARTLETT MD 05/12/17 Reported Medications Ergocalciferol (Vitamin D2) (VITAMIN D2) 50,000 Unit Capsule, 41430 UNIT PO Q30D , CAPSULE 05/31/17 Aspirin (ASPIRIN) 81 Mg Tab.chew, 81 MG PO QDAY, TAB.CHEW TAKE 1 TABLET BY MOUTH EVERY DAY 08/17/13 Hx Smoking: Yes Smoking Status: Current: Every Day Smoker, Light Tobacco Smoker Exposure to Second Hand Smoke?: Yes Hx Substance Use Disorder: No Hx Alcohol Use: Yes Constitutional Vital Sign - Last 24 Hours 11/16/17 18:28 Temp 98.3 Pulse 90 Resp 18 B/P (MAP) 144/80 Pulse Ox 94 O2 Delivery Room Air Physical Exam General Appearance: The patient is alert, has no immediate need for airway protection and no current signs of toxicity. No acute distress Eyes: Pupils equal and round no injection. Neuro no focal neurological deficits, no cranial nerve deficits Dental multiple dental caries, poor dentition, right lower molar fracture with surrounding edema without facial swelling Skin: No rashes or lesions. [ ] DIFFERENTIAL DIAGNOSIS: After history and physical exam differential diagnosis was considered for dental fracture, dental caries, dental abscess Medical Decision Making ED Course/Re-evaluation ED Course Patient is a 57-year-old female here with complaints of right lower dental pain with dental fracture, poor dentition, dental caries and suspected dental abscess without clear pocket of fluctuance. Patient declined a dental block for analgesia at time of evaluation. Patient denied difficulty swallowing, difficulty breathing, fevers or chills. She is actively trying to find a dentist access Medicaid to have definitive management with tooth extraction. Patient was given a prescription for clindamycin and advised to follow-up with dentistry in order to have definitive management. Patient was stable at time of discharge. Decision to Disposition Date: Nov 16, 2017 Decision to Disposition Time: 18:56 Depart Departure Latest Vital Signs Vital Signs Date Time Temp Pulse Resp B/P (MAP) Pulse Ox O2 Delivery O2 Flow Rate FiO2 11/16/17 18:28 98.3 90 18 144/80 94 Room Air Impression: Primary Impression: Tooth caries Additional Impression: Dental abscess Condition: Improved Disposition: HOME OR SELF-CARE Referrals: PRESLEY BARTLETT MD (PCP) New Scripts Clindamycin Hcl (CLINDAMYCIN HCL) 300 Mg Capsule 300 MG PO TID for 10 Days, #30 CAPSULE Prov: RAFAEL MORILLO DO 11/16/17 Departure Forms: Medications Reconciliation, Patient Portal Information, ER Transition Record Patient Instructions: Dental Abscess (ED) Additional Instructions: Please take one tablet clindamycin 3 times a day for 10 days. Please follow-up with dentistry as you will need to have your teeth extracted for definitive management. You may take Tylenol or ibuprofen or naproxen as needed for pain control. Please return promptly if you develop fevers, worsening swelling, facial swelling, difficulty swallowing, difficulty breathing. Problem Qualifiers RAFAEL MORILLO DO Nov 16, 2017 18:51
== END 2017-11-16 19:04 | disposition home or self-care (01) ==
LOC: ER 18:52
DX: F17.210 Nicotine dependence, cigarettes, uncomplicated (principal); K02.9 Dental caries, unspecified; K04.7 Periapical abscess without sinus
CPT/HCPCS: 99281

== ENCOUNTER → 2017-11-25 | Outpatient (CLI) | payer MEDICAID ==
[2017-04-25 13:12] VITALS: BMI 28.2
== END ==
LOC: LAB 12:56
PROVIDERS: ATTEND Internal Medicine
DX: M18.9 Osteoarthritis of first carpometacarpal joint, unspecified (principal); I10 Essential (primary) hypertension
CPT/HCPCS: 36415; 82040; 82247; 82310; 82374; 82435; 82565; 82947; 84075; 84132; 84155; 84295; 84450; 84460; 84520

== ENCOUNTER 2017-12-31 11:16 | Emergency (ER) | payer MEDICAID ==
[2017-04-25 13:12] VITALS: Wt 80.4 kg
--- NOTE | 2017-12-31 11:26 | ER Report ---
History and Physical Time Seen By MD: 11:26 Hx. of Stated Complaint: PT REPORTS R LOWER DENTAL PAIN AND SWELLING THAT STARTED YESTERDAY HPI/ROS CHIEF COMPLAINT: Dental pain, facial swelling HISTORY OF PRESENT ILLNESS: 57-year-old female patient presents to emergency room with complaint of dental pain and facial swelling. Patient states this been going on for the last 2 days. She states that she has significant amounts of pain to tooth #29. She states that she has not taken any medication for this. She denies any nausea, vomiting or diarrhea. Patient states she has felt hot and cold throughout the day. She states she has not checked her temperature. Patient states she has not contacted dentist, as with her Medicaid she is not able to see a dentist here in town. Patient states that she is a sufferer PTSD is unable to travel outside of town. Allergies: Coded Allergies: Penicillins (Verified Allergy, Intermediate, HIVES, 05/11/17) oxycodone HCl (Verified Allergy, Mild, FELT SHE WAS GOING BLIND, 05/11/17) Sulfa (Sulfonamide Antibiotics) (Verified Allergy, Unknown, 05/11/17) doxycycline (Verified Allergy, Unknown, increased icp, 05/11/17) ketorolac tromethamine (Verified Adverse Reaction, Unknown, FELT BAD, DIFFICULTY SEEING, 05/11/17) Uncoded Allergies: ARTIFICIAL SWEETNERS (Allergy, Severe, MIGRAINES, 11/18/12) due to neurologist instructions ANTIDEPRESSANTS (Adverse Reaction, Intermediate, STRANGE BEHAVIOR, 11/18/12) STEROIDS (Adverse Reaction, Mild, CANNOT TAKE DUE TO HER PSEUDO TUMOR CEREBRI, 05/18/12) Home Meds Active Scripts Clindamycin Hcl (CLINDAMYCIN HCL) 150 Mg Capsule, 450 MG PO QID, #120 CAPSULE Prov:ANGELA DIAZ 12/31/17 Albuterol Sulfate (VENTOLIN HFA) 18 Gm Inh, 2 PUFF INH Q4-6H, #1 INH 6 Refills Prov:PRESLEY BARTLETT MD 12/20/17 Clindamycin Hcl (CLINDAMYCIN HCL) 300 Mg Capsule, 300 MG PO TID for 10 Days, #30 CAPSULE Prov:RAFAEL MORILLO DO 11/16/17 Levofloxacin 250 Mg Tab (LEVOFLOXACIN 250 MG TAB) 250 Mg Tablet, 250 MG PO DIRECTED, #6 TAB 2 tablets day 1 than 1 tablet a day Prov:PRESLEY BARTLETT MD 10/25/17 Levothyroxine Sodium (LEVOTHYROXINE SODIUM) 100 Mcg Tablet, 100 MCG PO QDAY, #90 TAB 2 Refills Prov:PRESLEY BARTLETT MD 10/25/17 Telmisartan (MICARDIS) 20 Mg Tablet, 20 MG PO QDAY, #30 TAB 6 Refills Prov:PRESLEY BARTLETT MD 10/25/17 Lancets (FREESTYLE LANCETS) 1 Each Each, BOX MC QDAY, #1 4 Refills Patient to test blood glucose once a day Prov:PRESLEY BARTLETT MD 05/12/17 Diazepam (VALIUM) 2 Mg Tablet, 2 MG PO QHS PRN for ANXIETY, #30 TAB 0 Refills Prov:PRESLEY BARTLETT MD 05/12/17 Atorvastatin Calcium (ATORVASTATIN CALCIUM) 20 Mg Tablet, 1 TAB PO QDAY, #90 TAB 3 Refills Prov:PRESLEY BARTLETT MD 05/12/17 Sitagliptin Phosphate (JANUVIA) 25 Mg Tablet, 25 MG PO QDAY, #90 TAB 3 Refills Prov:PRESLEY BARTLETT MD 05/12/17 Reported Medications Ergocalciferol (Vitamin D2) (VITAMIN D2) 50,000 Unit Capsule, 52454 UNIT PO Q30D, CAPSULE 05/31/17 Aspirin (ASPIRIN) 81 Mg Tab.chew, 81 MG PO QDAY, TAB.CHEW TAKE 1 TABLET BY MOUTH EVERY DAY 08/17/13 Past Medical/Surgical History Patient has a past medical history of migraines, irregular heartbeat, hypertension, hyperlipidemia, asthma, pneumonia, cholecystitis, chronic kidney disease, degenerative joint disease and back and neck, back pain, ocular migrai kirsty, pseudotumor cerebri, diabetes, hypothyroidism, alcohol use, anxiety, PTSD. Patient has a surgical history of cholecystectomy, left knee surgery, adenoidectomy, tonsillectomy, partial thyroidectomy. Patient has a family medical history of CAD, diabetes Hx Smoking: Yes Smoking Status: Current: Every Day Smoker, Light Tobacco Smoker Exposure to Second Hand Smoke?: Yes Hx Substance Use Disorder: No Hx Alcohol Use: Yes Constitutional Vital Sign - Last 24 Hours 12/31/17 11:17 Temp 99.0 Pulse 76 Resp 18 B/P (MAP) 149/86 Pulse Ox 94 O2 Delivery Room Air Physical Exam General appearance: Alert no distress. Respiratory: Chest is non tender, lungs are clear to auscultation. Cardiac: Regular rate and rhythm. ENT: Membranes are pearly-gomez, auditory canals are patent, mucus mucous membranes are moist. Patient does have teeth are in poor disrepair on the bottom of the jaw. There is no fluctuant material noted. DIFFERENTIAL DIAGNOSIS: After history and physical exam differential diagnosis was considered for dental infection, dental abscess, soft tissue swelling. Medical Decision Making ED Course/Re-evaluation ED Course Patient was admitted to an exam room, history and physical were obtained. Differential diagnoses were considered. On examination lungs are clear, heart is regular, patient has several carious throughout the mouth, swelling noted to the right side of the face. There is no abscesses drainable. We will go ahead and place patient on clindamycin which she requested. We will have her follow-up with a dentist. She is going to call the oral maxillofacial surgeons. Patient steak [id number] pain medication as needed. Patient verbalized understanding and agreement with plan. Decision to Disposition Date: Dec 31, 2017 Decision to Disposition Time: 11:37 Depart Departure Latest Vital Signs Vital Signs Date Time Temp Pulse Resp B/P (MAP) Pulse Ox O2 Delivery O2 Flow Rate FiO2 12/31/17 11:17 99.0 76 18 149/86 94 Room Air Impression: Primary Impression: Tooth infection Condition: Improved Disposition: HOME OR SELF-CARE Referrals: PRESLEY BARTLETT MD (PCP) New Scripts Clindamycin Hcl (CLINDAMYCIN HCL) 150 Mg Capsule 450 MG PO QID, #120 CAPSULE Prov: ANGELA DIAZ 12/31/17 Patient Instructions: Toothache (ED) Additional Instructions: Rinse mouth with warm salt water after every meal. Eat soft foods. Follow up with your dentist as soon as possible, call to make an appointment. Return to the ER if condition worsens. ANGELA DIAZ Dec 31, 2017 11:26
[2017-12-31] MEDS ORDERED: CLIN-75 PO (11:36)
[2017-12-31 11:44] VITALS: BP 151/93
== END 2017-12-31 11:44 | disposition home or self-care (01) ==
LOC: ER 11:26
DX: K04.7 Periapical abscess without sinus (principal)
CPT/HCPCS: 99281

== ENCOUNTER 2018-01-06 10:56 | Emergency (ER) | payer MEDICAID ==
[2017-04-25 13:12] VITALS: Wt 80.4 kg
[~2018-01-06 10:56] MED LIST changes: +CLIN-75 PO
--- NOTE | 2018-01-06 11:04 | ER Report ---
History and Physical Time Seen By MD: 11:03 HPI/ROS CHIEF COMPLAINT: Right lower molar dental abscess HISTORY OF PRESENT ILLNESS: Patient is a 57-year-old female here with right lower molar dental abscess on clindamycin. Patient reports that she has been taking her clindamycin ever since being evaluated here several days ago however she started with a lower dose of clindamycin to avoid allergic reactions. She reports that the swelling has come down a little bit however she does have persistent pain and swelling prompting evaluation today. Patient denies dysphasia, trismus, odynophagia, fevers, visual disturbances, cranial nerve deficits. REVIEW OF SYSTEMS: Constitutional: No fever, no chills. Eyes: No discharge. ENT: Right lower molar dental abscess approximately 2 cm diameter with mild swelling in the gums Musculoskeletal: No back pain. Skin: No rashes. Neurological: No headache. No focal neurological deficits Allergies: Coded Allergies: Penicillins (Verified Allergy, Intermediate, HIVES, 01/06/18) oxycodone HCl (Verified Allergy, Mild, FELT SHE WAS GOING BLIND, 01/06/18) Sulfa (Sulfonamide Antibiotics) (Verified Allergy, Unknown, 01/06/18) doxycycline (Verified Allergy, Unknown, increased icp, 01/06/18) ketorolac tromethamine (Verified Adverse Reaction, Unknown, FELT BAD, DIFFICULTY SEEING, 01/06/18) Uncoded Allergies: ARTIFICIAL SWEETNERS (Allergy, Severe, MIGRAINES, 11/18/12) due to neurologist instructions ANTIDEPRESSANTS (Adverse Reaction, Intermediate, STRANGE BEHAVIOR, 11/18/12) STEROIDS (Adverse Reaction, Mild, CANNOT TAKE DUE TO HER PSEUDO TUMOR CEREBRI, 05/18/12) Home Meds Active Scripts Clindamycin Hcl (CLINDAMYCIN HCL) 150 Mg Capsule, 450 MG PO QID, #120 CAPSULE Prov:ANGELA DIAZ 12/31/17 Albuterol Sulfate (VENTOLIN HFA) 18 Gm Inh, 2 PUFF INH Q4-6H, #1 INH 6 Refills Prov:PRESLEY BARTLETT MD 12/20/17 Levothyroxine Sodium (LEVOTHYROXINE SODIUM) 100 Mcg Tablet, 100 MCG PO QDAY, #90 TAB 2 Refills Prov:PRESLEY BARTLETT MD 10/25/17 Telmisartan (MICARDIS) 20 Mg Tablet, 20 MG PO QDAY, #30 TAB 6 Refills Prov:PRESLEY BARTLETT MD 10/25/17 Lancets (FREESTYLE LANCETS) 1 Each Each, BOX MC QDAY, #1 4 Refills Patient to test blood glucose once a day Prov:PRESLEY BARTLETT MD 05/12/17 Diazepam (VALIUM) 2 Mg Tablet, 2 MG PO QHS PRN for ANXIETY, #30 TAB 0 Refills Prov:PRESLEY BARTLETT MD 05/12/17 Atorvastatin Calcium (ATORVASTATIN CALCIUM) 20 Mg Tablet, 1 TAB PO QDAY, #90 TAB 3 Refills Prov:PRESLEY BARTLETT MD 05/12/17 Sitagliptin Phosphate (JANUVIA) 25 Mg Tablet, 25 MG PO QDAY, #90 TAB 3 Refills Prov:PRESLEY BARTLETT MD 05/12/17 Reported Medications Ergocalciferol (Vitamin D2) (VITAMIN D2) 50,000 Unit Capsule, 30383 UNIT PO Q30D, CAPSULE 05/31/17 Aspirin (ASPIRIN) 81 Mg Tab.chew, 81 MG PO QDAY, TAB.CHEW TAKE 1 TABLET BY MOUTH EVERY DAY 08/17/13 Discontinued Scripts Clindamycin Hcl (CLINDAMYCIN HCL) 300 Mg Capsule, 300 MG PO TID for 10 Days, #30 CAPSULE Prov:RAFAEL MORILLO DO 11/16/17 Levofloxacin 250 Mg Tab (LEVOFLOXACIN 250 MG TAB) 250 Mg Tablet, 250 MG PO DIRECTED, #6 TAB 2 tablets day 1 than 1 tablet a day Prov:PRESLEY BARTLETT MD 10/25/17 Hx Smoking: Yes Smoking Status: Current: Every Day Smoker, Light Tobacco Smoker Exposure to Second Hand Smoke?: Yes Hx Substance Use Disorder: No Hx Alcohol Use: Yes Constitutional Vital Sign - Last 24 Hours 01/06/18 11:05 Temp 97.9 Pulse 102 Resp 18 B/P (MAP) 143/84 Pulse Ox 92 O2 Delivery Room Air Physical Exam General Appearance: The patient is alert, has no immediate need for airway protection and no signs of toxicity. NAD Eyes: Pupils equal and round no pallor or injection. ENT, Mouth: Right lower molar dental abscess approximately 2 cm diameter with adjacent swelling and fluctuance Neurological: No cranial nerve deficits or focal neurological deficits Skin: Warm and dry, no rashes. DIFFERENTIAL DIAGNOSIS: After history and physical exam differential diagnosis w as considered for dental abscess, gingivitis, Ludwigs angina, linear areas Medical Decision Making ED Course/Re-evaluation ED Course Patient is a 57-year-old female here with a right lower molar dental abscess on clindamycin. A inferior alveolar dental block was performed as well as a local dental block and a 21-gauge was used to aspirate approximately 3 mL of purulent material from the abscess. Patient was advised to continue clindamycin until completing the prescription. She was given a prescription for tramadol for pain control. Patient was advised to follow-up with dentistry in one week. Procedure Inferior alveolar dental block. Bupivacaine 0.5% with epinephrine approximately 2 mL was instilled for dental nerve block and approximately 1 mL was instilled in the abscess. A 21-gauge needle was used for aspiration and approximately 3 mL of purulent material was aspirated from the dental abscess. Hemostasis was achieved. Patient tolerated the procedure well with local anesthetic block. Decision to Disposition Date: Jan 06, 2018 Decision to Disposition Time: 11:50 Depart Departure Latest Vital Signs Vital Signs Date Time Temp Pulse Resp B/P (MAP) Pulse Ox O2 Delivery O2 Flow Rate FiO2 01/06/18 11:05 97.9 102 18 143/84 92 Room Air Impression: Primary Impression: Dental abscess Additional Impression: Tooth caries Condition: Improved Disposition: HOME OR SELF-CARE Referrals: PRESLEY BARTLETT MD (PCP) New Scripts Tramadol Hcl (TRAMADOL HCL) 50 Mg Tablet 50 MG PO Q6H PRN for PAIN, #12 TAB 0 Refills Prov: RAFAEL MORILLO DO 01/06/18 Patient Instructions: Dental Abscess (ED) Additional Instructions: Please complete her course of clindamycin. You may take 1 tablet tramadol as needed for pain control. Do not drive or drink alcohol on this medication as it may make you drowsy. Please return promptly if she develop worsening pain, increased swelling, fevers, difficulty swallowing, difficulty opening her mouth, difficulty breathing. Problem Qualifiers RAFAEL MORILLO DO Jan 06, 2018 11:04
[2018-01-06 11:05] VITALS: BP 143/84
[2018-01-06] MEDS ORDERED: TRAM-420 PO (11:50)
== END 2018-01-06 11:59 | disposition home or self-care (01) ==
LOC: ER 11:12
DX: K04.7 Periapical abscess without sinus (principal); K02.9 Dental caries, unspecified; F17.210 Nicotine dependence, cigarettes, uncomplicated
CPT/HCPCS: 99284

== ENCOUNTER 2018-02-11 12:42 | Emergency (ER) | payer MEDICAID ==
[2017-04-25 13:12] VITALS: BMI 28.2
[~2018-02-11 12:42] MED LIST changes: +TRAM-420 PO
--- NOTE | 2018-02-11 12:51 | ER Report ---
History and Physical Time Seen By MD: 12:51 HPI/ROS CHIEF COMPLAINT: Dental pain HISTORY OF PRESENT ILLNESS: This is a 57-year-old female who presents to emergency department for recurrent dental pain. Patient was seen in the emergency department several times over the last several months for dental infections, she did follow up with her dentist this week, he did recommend pulling the teeth earlier this week, she declined at that time she did not have the funding. Since then the patient has had increased swelling of the right lower jaw with some increased dental pain, she did follow-up with the dentist again yesterday, apparently they did not want place her on antibiotics and she's been on multiple doses of antibiotics over the last several months. Today the swelling has increased causing more concern, patient suddenly came to the ER for further evaluation. No fevers or chills. No nausea vomiting. No diarrhea. No other complaints. Patient has mild dental pain, increased discomfort along the right lower gumline near the molars. REVIEW OF SYSTEMS: Respiratory: No cough, no dyspnea. Dental: As above. Cardiovascular: No chest pain, no palpitations. Gastrointestinal: No vomiting, no abdominal pain. Musculoskeletal: No back pain. Allergies: Coded Allergies: Penicillins (Verified Allergy, Intermediate, HIVES, 01/06/18) oxycodone HCl (Verified Allergy, Mild, FELT SHE WAS GOING BLIND, 01/06/18) Sulfa (Sulfonamide Antibiotics) (Verified Allergy, Unknown, 01/06/18) doxycycline (Verified Allergy, Unknown, increased icp, 01/06/18) ketorolac tromethamine (Verified Adverse Reaction, Unknown, FELT BAD, DIFFICULTY SEEING, 01/06/18) Uncoded Allergies: ARTIFICIAL SWEETNERS (Allergy, Severe, MIGRAINES, 11/18/12) due to neurologist instructions ANTIDEPRESSANTS (Adverse Reaction, Intermediate, STRANGE BEHAVIOR, 11/18/12) STEROIDS (Adverse Reaction, Mild, CANNOT TAKE DUE TO HER PSEUDO TUMOR Kristan KENI, 05/18/12) Home Meds Active Scripts Clindamycin Hcl (CLINDAMYCIN HCL) 300 Mg Capsule, 300 MG PO Q6H, #40 CAPSULE Prov:JON DOTSON JAVA WEBSPH[employer] DEVELOPER-BC 02/11/18 Tramadol Hcl (TRAMADOL HCL) 50 Mg Tablet, 50 MG PO Q6H PRN for PAIN, #12 TAB 0 Refills Prov:RAFAEL MORILLO DO 01/06/18 Clindamycin Hcl (CLINDAMYCIN HCL) 150 Mg Capsule, 450 MG PO QID, #120 CAPSULE Prov:JOEANGELA JAVA WEBSPHERE DEVELOPER 12/31/17 Albuterol Sulfate (VENTOLIN HFA) 18 Gm Inh, 2 PUFF INH Q4-6H, #1 INH 6 Refills Prov:PRESLEY BARTLETT MD 12/20/17 Levothyroxine Sodium (LEVOTHYROXINE SODIUM) 100 Mcg Tablet, 100 MCG PO QDAY, #90 TAB 2 Refills Prov:PRESLEY BARTLETT MD 10/25/17 Telmisartan (MICARDIS) 20 Mg Tablet, 20 MG PO QDAY, #30 TAB 6 Refills Prov:PRESLEY BARTLETT MD 10/25/17 Lancets (FREESTYLE LANCETS) 1 Each Each, BOX MC QDAY, #1 4 Refills Patient to test blood glucose once a day Prov:PRESLEY BARTLETT MD 05/12/17 Diazepam (VALIUM) 2 Mg Tablet, 2 MG PO QHS PRN for ANXIETY, #30 TAB 0 Refills Prov:PRESLEY BARTLETT MD 05/12/17 Atorvastatin Calcium (ATORVASTATIN CALCIUM) 20 Mg Tablet, 1 TAB PO QDAY, #90 TAB 3 Refills Prov:PRESLEY BARTLETT MD 05/12/17 Sitagliptin Phosphate (JANUVIA) 25 Mg Tablet, 25 MG PO QDAY, #90 TAB 3 Refills Prov:PRESLEY BARTLETT MD 05/12/17 Reported Medications Ergocalciferol (Vitamin D2) (VITAMIN D2) 50,000 Unit Capsule, 86082 UNIT PO Q30D, CAPSULE 05/31/17 Aspirin (ASPIRIN) 81 Mg Tab.chew, 81 MG PO QDAY, TAB.CHEW TAKE 1 TABLET BY MOUTH EVERY DAY 08/17/13 Past Medical/Surgical History The patient has a past medical and surgical history of migraines, occasionally has irregular heartbeat, hypertension, hypercholesterolemia, asthma, bronchitis, COPD, continuous oxygen, gallbladder disease, chronic kidney disease, degenerative joint disease in back and neck, chronic neck and back pain, ocular migraine, pseudotumor cerebri, [id number] diabetic, hypothyroidism, anxiety, headache attacks, depression, cholecystectomy, left knee surgery, adenoidectomy, tonsillectomy. Reviewed Nurses Notes: Yes Hx Smoking: Yes Smoking Status: Current: Every Day Smoker, Light Tobacco Smoker Exposure to Second Hand Smoke?: Yes Hx Substance Use Disorder: No Hx Alcohol Use: Yes Constitutional Vital Sign - Last 24 Hours 02/11/18 02/11/18 02/11/18 02/11/18 12:42 12:45 12:51 13:00 Temp 98.5 Pulse ??? 87 Resp 20 B/P (MAP) 141/86 (104) 141/86 124/73 (90) Pulse Ox 96 O2 Delivery Nasal Cannula 02/11/18 02/11/18 02/11/18 13:12 13:30 13:42 Pulse 84 81 B/P (MAP) 129/76 (93) Pulse Ox 95 96 Physical Exam General Appearance: The patient is alert, has no immediate need for airway protection and no current signs of toxicity. Eyes: Pupils equal and round no injection. Dental: Poor dentition, multiple missing teeth throughout, cavities, gingivitis, erythema to the right lower gumline between the cheek and molars, no fluctuance or open wound. Tenderness along the gumline with palpation. The right cheek along the mandible is swollen however, no erythema or cellulitic appearance externally. Respiratory: Chest is non tender, lungs are clear to auscultation. Cardiac: regular rate and rhythm. Gastrointestinal: Abdomen is soft and non tender, no masses, bowel sounds normal. Musculoskeletal: Neck: Neck is supple and non tender. Extremities have full range of motion and are non tender. Skin: No rashes or lesions. DIFFERENTIAL DIAGNOSIS: After history and physical exam differential diagnosis was considered for dental abscess, dental caries, peritonsillar abscess, parotitis. Medical Decision Making ED Course/Re-evaluation ED Course The patient was admitted to a room. A history and physical were obtained. Differential diagnoses were considered. After examination the patient's and a lengthy discussion, I did recommend antibiotics, the patient was very reluctant to try clindamycin again and it did cause some GI upset, I did tell patient that very limited in with antibiotic use for this as she has a penicillin allergy, she states that the allergy was when she took too many of the penicillin tablets at the same time did end up with some hives. I asked that she had Augmentin, she denies trying this, she was reluctant to try Romycin again I said if she was willing week and try Augmentin while in the emergency department monitor however after a lengthy discussion she openly decided to try clindamycin again, I did recommend she complete the course of antibiotics as this could be peggy to the recurrent dental pain. I also recommended following up with her dentist next week, try to have the teeth extracted as soon as possible once the infection has resolved. The patient expressed understanding and was discharged home. Decision to Disposition Date: Feb 11, 2018 Decision to Disposition Time: 13:35 Depart Departure Latest Vital Signs Vital Signs Date Time Temp Pulse Resp B/P (MAP) Pulse Ox O2 Delivery O2 Flow Rate FiO2 02/11/18 13:42 81 96 02/11/18 13:30 129/76 (93) 02/11/18 12:51 98.5 20 Nasal Cannula Impression: Primary Impression: Pain due to dental caries Condition: Improved Disposition: HOME OR SELF-CARE Referrals: PRESLEY BARTLETT MD (PCP) New Scripts Clindamycin Hcl (CLINDAMYCIN HCL) 300 Mg Capsule 300 MG PO Q6H, #40 CAPSULE Prov: JON DOTSONP-BC 02/11/18 Patient Instructions: Acute Dental Trauma (GEN), Dental Caries (DC) Additional Instructions: We discussed several options, we have however decided to put you back on Clindam ycin, Please complete the course of antibiotics as not completing them can create resistance. Please make a follow up appointment with your dentist next week to reevaluate and try to schedule your dental work as soon as possible. Do not take the activa at the same time as your antibiotics. Drink plenty of water, Get plenty of rest. Return to the ED for any other concerns or worsening symptoms. JON DOTSON JAVA WEBSPH[employer] DEVELOPER-BC Feb 11, 2018 12:51
[2018-02-11 13:30] VITALS: BP 129/76
[2018-02-11] MEDS ORDERED: CLIN300C99 PO (13:38)
== END 2018-02-11 14:04 | disposition home or self-care (01) ==
LOC: ER 12:52
DX: F17.210 Nicotine dependence, cigarettes, uncomplicated (principal); K02.9 Dental caries, unspecified
CPT/HCPCS: 99281

== ENCOUNTER → 2018-03-02 | Outpatient (CLI) | payer MEDICAID ==
[2017-04-25 13:12] VITALS: BMI 28.2
[2018-03-02 13:58] LABS: PLATELET COUNT, AUTOMATED 470 K/uL (150-450)
== END ==
LOC: LAB 13:16
PROVIDERS: ATTEND Internal Medicine
DX: N18.9 Chronic kidney disease, unspecified (principal); J44.9 Chronic obstructive pulmonary disease, unspecified; E11.9 Type 2 diabetes mellitus without complications; I10 Essential (primary) hypertension; E78.00 Pure hypercholesterolemia, unspecified; E03.9 Hypothyroidism, unspecified
CPT/HCPCS: 36415; 82040; 82247; 82310; 82374; 82435; 82465; 82565; 82728; 82947; 83036; 83540; 83550; 83718; 84075; 84132; 84155; 84295; 84439; 84443; 84450; 84460; 84478; 84520; 85025

== ENCOUNTER → 2018-05-02 | Outpatient (CLI) | payer MEDICAID ==
[2017-04-25 13:12] VITALS: BMI 28.2
[~2018-05-02] MED LIST changes: -AMLO-113 PO; +AMLO-127 PO; +ATOR40TA69 PO
[2018-05-02 08:36] LABS: PLATELET COUNT, AUTOMATED 392 K/uL (150-450)
== END ==
LOC: LAB 08:13
PROVIDERS: ATTEND Internal Medicine Nephrology
DX: N25.81 Secondary hyperparathyroidism of renal origin (principal); I12.9 Hypertensive chronic kidney disease with stage 1 through stage 4 chronic kidney disease, or unspecified chronic kidney disease; N18.3 Chronic kidney disease, stage 3 (moderate); E87.6 Hypokalemia
CPT/HCPCS: 36415; 82040; 82310; 82374; 82435; 82565; 82570; 82947; 83735; 83970; 84100; 84132; 84156; 84295; 84520; 85025

== ENCOUNTER → 2018-05-10 | Outpatient (CLI) | payer MEDICAID ==
[2017-04-25 13:12] VITALS: BMI 28.2
[2018-05-10 13:20] LABS: PLATELET COUNT, AUTOMATED 565 K/uL (150-450)
== END ==
LOC: LAB 13:05
PROVIDERS: ATTEND Internal Medicine
DX: E03.9 Hypothyroidism, unspecified (principal); I12.9 Hypertensive chronic kidney disease with stage 1 through stage 4 chronic kidney disease, or unspecified chronic kidney disease; E11.9 Type 2 diabetes mellitus without complications; N18.9 Chronic kidney disease, unspecified
CPT/HCPCS: 36415; 82040; 82247; 82310; 82374; 82435; 82465; 82565; 82947; 83036; 83718; 84075; 84132; 84155; 84295; 84443; 84450; 84460; 84478; 84520; 85025

== ENCOUNTER 2018-07-22 12:57 | Emergency (ER) | payer MEDICAID ==
[2017-04-25 13:12] VITALS: Wt 78.9 kg
[~2018-07-22 12:57] MED LIST changes: +SITA50TA6 PO; +TELM80TA4 PO
[2018-07-22 13:05] VITALS: BP 138/79
[2018-07-22] MEDS ORDERED: ALBUTEROL 2.5 MG/3 ML NEB NEB ONE (13:15)
[2018-07-22 13:29] LABS: PLATELET COUNT, AUTOMATED 430 K/uL (150-450)
[2018-07-22] MEDS ORDERED: NS(*) 0.9% 1000 ML BAG 1,000 ML IV ONE (13:45)
--- NOTE | 2018-07-22 14:11 | ER Report ---
History and Physical Time Seen By MD: 13:00 Hx. of Stated Complaint: COUGHING UP "PUS" FOR "A WHILE". RUQ PAIN. HEART RACING FOR TWO DAYS. STATES SHE GETS REALLY HOT AND MAY HAVE FEVER HPI/ROS CHIEF COMPLAINT: Cough HISTORY OF PRESENT ILLNESS: Patient is a 58-year-old female who presents to ED with complaint of cough for the past 2 months. She states that she has had a productive cough but has had this in the past with her COPD. She denies any fever but has had some mild sore throat. She states that her son has had some similar symptoms as well. She denies any shortness of breath or chest pain. She states that she is on oxygen all the time at 2-3 L. She states that she is on this for COPD. She does take albuterol inhaler and nebulizer treatments at home. She has not had one today. She states that she is allergic to DuoNeb. Patient denies any lower external swelling. REVIEW OF SYSTEMS: Constitutional: No fever, no chills. Eyes: No discharge. ENT: No sore throat. Cardiovascular: No chest pain, no palpitations. Respiratory: See history of present illness. Gastrointestinal: No abdominal pain, no vomiting. Genitourinary: No hematuria. Musculoskeletal: No back pain. Skin: No rashes. Neurological: No headache. Allergies: Coded Allergies: Penicillins (Verified Allergy, Intermediate, HIVES, 07/22/18) cephalexin (Verified Allergy, Mild, VOMITTING, 07/22/18) oxycodone HCl (Verified Allergy, Mild, FELT SHE WAS GOING BLIND, 07/22/18) Sulfa (Sulfonamide Antibiotics) (Verified Allergy, Unknown, 07/22/18) doxycycline (Verified Allergy, Unknown, increased icp, 07/22/18) ketorolac tromethamine (Verified Adverse Reaction, Unknown, FELT BAD, DIFFICULTY SEEING, 07/22/18) Uncoded Allergies: ARTIFICIAL SWEETNERS (Allergy, Severe, MIGRAINES, 11/18/12) due to neurologist instructions ANTIDEPRESSANTS (Adverse Reaction, Intermediate, STRANGE BEHAVIOR, 11/18/12) STEROIDS (Adverse Reaction, Mild, CANNOT TAKE DUE TO HER PSEUDO TUMOR CEREBRI, 05/18/12) Home Meds Active Scripts Sitagliptin Phosphate (JANUVIA) 50 Mg Tablet, 50 MG PO QDAY, #90 TAB 2 Refills Prov:TRI,PRESLEY MD 05/17/18 Doxycycline Hyclate (DOXYCYCLINE HYCLATE) 100 Mg Tablet, 100 MG PO QDAY, #7 TAB Prov:PRESLEY BARTLETT MD 05/17/18 Albuterol Sulfate 0.083% (ALBUTEROL SULFATE 0.083%) 2.5 Mg/3 Ml Vial.neb, 2.5 MG INH QID PRN for SHORTNESS OF BREATH, #60 INH Prov:PRESLEY BARTLETT MD 05/17/18 Diazepam (VALIUM) 2 Mg Tablet, 2 MG PO QHS PRN for ANXIETY, #30 TAB 0 Refills Prov:PRESLEY BARTLETT MD 05/17/18 Telmisartan (Telmisartan) 80 Mg Tablet, 1 TAB PO QDAY, #90 TAB 1 Refill Prov:PRESLEY BARTLETT MD 05/17/18 Atorvastatin Calcium (ATORVASTATIN CALCIUM) 40 Mg Tablet, 1 TAB PO QDAY, #90 TAB 1 Refill Prov:PRESLEY BARTLETT MD 03/08/18 Albuterol Sulfate (VENTOLIN HFA) 18 Gm Inh, 2 PUFF INH Q4-6H, #1 INH 6 Refills Prov:PRESLEY BARTLETT MD 12/20/17 Levothyroxine Sodium (LEVOTHYROXINE SODIUM) 100 Mcg Tablet, 100 MCG PO QDAY, #90 TAB 2 Refills Prov:PRESLEY BARTLETT MD 10/25/17 Lancets (FREESTYLE LANCETS) 1 Each Each, BOX MC QDAY, #1 4 Refills Patient to test blood glucose once a day Prov:PRESLEY BARTLETT MD 05/12/17 Reported Medications Ergocalciferol (Vitamin D2) (VITAMIN D2) 50,000 Unit Capsule, 24505 UNIT PO Q30D, CAPSULE 05/31/17 Aspirin (ASPIRIN) 81 Mg Tab.chew, 81 MG PO QDAY, TAB.CHEW TAKE 1 TABLET BY MOUTH EVERY DAY 08/17/13 Reviewed Nurses Notes: Yes Old Medical Records Reviewed: Yes Hx Smoking: Yes Smoking Status: Current: Every Day Smoker, Light Tobacco Smoker Exposure to Second Hand Smoke?: Yes Hx Substance Use Disorder: No Hx Alcohol Use: Yes Constitutional Vital Sign - Last 24 Hours 5/2407/22/18 07/22/18 07/22/18 13:04 13:11 13:50 13:50 Temp 98.9 Pulse 104 84 Resp 20 18 B/P (MAP) 138/79 Pulse Ox 91 95 O2 Delivery Nasal Cannula Nasal Cannula O2 Flow Rate 2.5 3.0 Physical Exam General Appearance: The patient is alert, has no immediate need for airway protection and no signs of toxicity. Patient appears to be no acute distress. Eyes: Pupils equal and round no pallor or injection. ENT, Mouth: Mucous membranes are moist. Respiratory: There are no retractions, lungs are clear to auscultation. Cardiovascular: Regular rate and rhythm. Gastrointestinal: Abdomen is soft and non tender, no masses, bowel sounds normal. Skin: Warm and dry, no rashes. Musculoskeletal: Neck is supple non tender. Extremities are nontender, nonswollen and have full range of motion. DIFFERENTIAL DIAGNOSIS: After history and physical exam differential diagnosis was considered for cough including pneumonia, upper respiratory infection, sinusitis, COPD exacerbation. Medical Decision Making Data Points Result Diagram: 07/22/18 1320 07/22/18 1320 Laboratory Hematology Test 07/22/18 13:20 Red Blood Count 4.47 M/uL (4.17-5.56) Mean Corpuscular Volume 86.2 fL (80.0-96.0) Mean Corpuscular Hemoglobin 28.0 pg (26.0-33.0) Mean Corpuscular Hemoglobin Concent 32.5 g/dL (32.0-36.0) Red Cell Distribution Width 16.0 % (11.5-14.5) Mean Platelet Volume 7.6 fL (7.2-11.1) Neutrophils (%) (Auto) 77.0 % (39.4-72.5) Lymphocytes (%) (Auto) 14.2 % (17.6-49.6) Monocytes (%) (Auto) 6.6 % (4.1-12.4) Eosinophils (%) (Auto) 1.8 % (0.4-6.7) Basophils (%) (Auto) 0.4 % (0.3-1.4) Nucleated RBC Relative Count (auto) 0.0 /100WBC Neutrophils # (Auto) 7.6 K/uL (2.0-7.4) Lymphocytes # (Auto) 1.4 K/uL (1.3-3.6) Monocytes # (Auto) 0.7 K/uL (0.3-1.0) Eosinophils # (Auto) 0.2 K/uL (0.0-0.5) Basophils # (Auto) 0.0 K/uL (0.0-0.1) Nucleated RBC Absolute Count (auto) 0.00 K/uL Sodium Level 137 mmol/L (137-145) Potassium Level 4.7 mmol/L (3.5-5.0) Chloride Level 102 mmol/L (98-107) Carbon Dioxide Level 24 mmol/L (22-31) Blood Urea Nitrogen 36 mg/dl (7-18) Creatinine 1.80 mg/dl (0.52-1.04) Glomerular Filtration Rate Calc 29.1 Random Glucose 158 mg/dl (75-110) Calcium Level 9.3 mg/dl (8.4-10.2) Total Bilirubin 0.3 mg/dl (0.2-1.3) Aspartate Amino Transf (AST/SGOT) 18 U/L (0-35) Alanine Aminotransferase (ALT/SGPT) 19 U/L (0-56) Alkaline Phosphatase 65 U/L (0-126) Total Protein 7.8 g/dl (6.3-8.2) Albumin 4.4 g/dl (3.5-5.0) Chemistry Test 07/22/18 13:20 White Blood Count 9.9 k/uL (4.5-11.0) Red Blood Count 4.47 M/uL (4.17-5.56) Hemoglobin 12.5 g/dL (12.0-16.0) Hematocrit 38.5 % (34.0-47.0) Mean Corpuscular Volume 86.2 fL (80.0-96.0) Mean Corpuscular Hemoglobin 28.0 pg (26.0-33.0) Mean Corpuscular Hemoglobin Concent 32.5 g/dL (32.0-36.0) Red Cell Distribution Width 16.0 % (11.5-14.5) Platelet Count 430 K/uL (150-450) Mean Platelet Volume 7.6 fL (7.2-11.1) Neutrophils (%) (Auto) 77.0 % (39.4-72.5) Lymphocytes (%) (Auto) 14.2 % (17.6-49.6) Monocytes (%) (Auto) 6.6 % (4.1-12.4) Eosinophils (%) (Auto) 1.8 % (0.4-6.7) Basophils (%) (Auto) 0.4 % (0.3-1.4) Nucleated RBC Relative Count (auto) 0.0 /100WBC Neutrophils # (Auto) 7.6 K/uL (2.0-7.4) Lymphocytes # (Auto) 1.4 K/uL (1.3-3.6) Monocytes # (Auto) 0.7 K/uL (0.3-1.0) Eosinophils # (Auto) 0.2 K/uL (0.0-0.5) Basophils # (Auto) 0.0 K/uL (0.0-0.1) Nucleated RBC Absolute Count (auto) 0.00 K/uL Glomerular Filtration Rate Calc 29.1 Calcium Level 9.3 mg/dl (8.4-10.2) Total Bilirubin 0.3 mg/dl (0.2-1.3) Aspartate Amino Transf (AST/SGOT) 18 U/L (0-35) Alanine Aminotransferase (ALT/SGPT) 19 U/L (0-56) Alkaline Phosphatase 65 U/L (0-126) Total Protein 7.8 g/dl (6.3-8.2) Albumin 4.4 g/dl (3.5-5.0) EKG/Imaging EKG Interpretation 12 lead EKG: Rhythm: Normal sinus rhythm, rate 97 bpm [place]: normal QRS: normal ST segments: No acute ST changes noted. T wave inversion in V1 ED Course/Re-evaluation ED Course Will obtain chest x-ray and lab work. Re-evaluation Patient is feeling well. Discussed x-ray findings of possible infiltrate. She does have essentially normal lab work with a stable creatinine at 1.8. She does have chronic kidney disease stage III. Given the infiltrate findings would like to prescribe antibiotics. Patient states that she is allergic to azithromycin, cephalosporins, penicillins, doxycycline. Given this will prescribe Levaquin however will renal dose this given her stage III kidney disease. Decision to Disposition Date: July 22, 2018 Decision to Disposition Time: 14:42 Depart Departure Latest Vital Signs Vital Signs Date Time Temp Pulse Resp B/P (MAP) Pulse Ox O2 Delivery O2 Flow Rate FiO2 07/22/18 13:50 95 Nasal Cannula 3.0 07/22/18 13:50 84 18 07/22/18 13:04 98.9 138/79 Impression: Primary Impression: Pneumonia Condition: Improved Disposition: HOME OR SELF-CARE Referrals: PRESLEY BARTLETT MD (PCP) New Scripts Levofloxacin 750 Mg Tab (LEVAQUIN 750 MG TAB) 750 Mg Tablet 750 MG PO Q48H for 10 Days, #5 TAB Prov: MATT DEY PA-C 07/22/18 Patient Instructions: Bacterial Pneumonia (ED) Additional Instructions: Stay well-hydrated. Follow-up with primary care provider in 2-3 days. If having any worsening or concerning symptoms may return to the emergency department. Problem Qualifiers Primary Impression: Pneumonia Pneumonia type: due to unspecified organism Laterality: right Lung location: middle lobe of lung Qualified Codes: J18.1 - Lobar pneumonia, unspecified organism MATT DEY PA-C July 22, 2018 14:11
--- NOTE | 2018-07-22 14:18 | RADIOLOGY IMAGING REPORT ---
FACILITY: [facility] [place] PATIENT NAME: Malu Mora : 1960 MR: [id number] V: [id number] EXAM DATE: ORDERING PHYSICIAN: MATT DEY TECHNOLOGIST: Location: [facility] Patient: Malu Mora : 1960 Visit/Account:[id number] Date of Sevice: 07/22/2018 Chest 2 views: HISTORY: Cough x2 months. Patient states history of COPD. COMPARISON: 05/11/2017 FINDINGS: Frontal and lateral chest: Cardiomediastinal silhouette is within normal limits. There is ill-defined opacity in the right medial lung base more pronounced than previous, atelectasis versus d eveloping infiltrate. No pleural effusion or pneumothorax. Pulmonary vasculature is normal. Lungs are mildly hyperexpanded and hemidiaphragms flattened consistent with the history of obstructive pulm onary disease. Minor degenerative changes present in the thoracic spine. IMPRESSION: 1. Opacity in the right medial lung base more pronounced than previous, atelectasis versus developin g infiltrate. 2. Pulmonary hyperexpansion which can be seen with obstructive pulmonary disease. Report Dictated By: Jaenth Salinas MD at 07/22/2018 2:11 PM Report E-Signed By: Janeth Salinas MD at 07/22/2018 2:14 PM WSN:[email or web address]
[2018-07-22] MEDS ORDERED: LEVO750T44 PO (14:40)
--- NOTE | 2018-07-22 16:22 | EKG ---
FACILITY: [facility] PATIENT NAME: BETTY CALDERON : [id number] MR: [id number] V: [id number] EXAM DATE: ORDERING PHYSICIAN: DILLON MEDINA TECHNOLOGIST: ARAVIND Test Reason : IRREGULAR HR Blood Pressure : / mmHG Vent. Rate : 097 BPM Atrial Rate : 097 BPM P-R Int : 188 ms QRS Dur : 088 ms QT Int : 350 ms P-R-T Axes : 072 069 068 degrees QTc Int : 444 ms Sinus rhythm Possible left atrial enlargement Decreased R wave progression through anterior leads Confirmed by ANTHONY ARREDONDO ([id number]) on 07/22/2018 8:10:00 PM Referred By: CAROL Confirmed By:ANTHONY ARREDONDO
[2018-07-27] MEDS ORDERED: LEVO-3 PO (16:02)
== END 2018-07-22 14:58 | disposition home or self-care (01) ==
LOC: ER 13:05
DX: J18.1 Lobar pneumonia, unspecified organism (principal); F17.210 Nicotine dependence, cigarettes, uncomplicated; N18.3 Chronic kidney disease, stage 3 (moderate); J44.9 Chronic obstructive pulmonary disease, unspecified
CPT/HCPCS: 71046; 85025; 93005; 94640; 99284; J7030; J7613; 82040; 82247; 82310; 82374; 82435; 82565; 82947; 84075; 84132; 84155; 84295; 84450; 84460; 84520

== ENCOUNTER → 2018-08-10 | Outpatient (CLI) | payer MEDICAID ==
[2017-04-25 13:12] VITALS: BMI 28.2
[~2018-08-10] MED LIST changes: -OMEP-125 PO; +OMEP-126 PO; -RANI-366 PO; +RANI-54 PO
--- NOTE | 2018-08-10 15:07 | RADIOLOGY IMAGING REPORT ---
FACILITY: [facility] PATIENT NAME: Malu Mora : 1960 MR: [id number] V: [id number] EXAM DATE: ORDERING PHYSICIAN: TOMMY SNEED TECHNOLOGIST: Location: [facility] Patient: Malu Mora : 1960 Visit/Account:[id number] Date of Sevice: 08/10/2018 CHEST PA LAT HISTORY: Asthma. COPD. COMPARISON: Chest x-ray July 22, 2018. FINDINGS: Cardiomediastinal contours: The heart size is normal. Lungs and pleura: There is no finding of an infiltrate, lymphadenopathy or pleural effusion. Again n oted is hyperinflation the lungs manifesting as flattening of the diaphragms and an increase in AP di ameter. Bones/soft tissues: There are no findings of a fracture. IMPRESSION: 1. Hyperinflation of the lungs. 2. No active disease in the chest. Report Dictated By: River Steward MD at 08/10/2018 3:02 PM Report E-Signed By: River Steward MD at 08/10/2018 3:04 PM WSN:[id number]
== END ==
LOC: RAD 14:36
PROVIDERS: ATTEND Nurse Practitioner Family
DX: R91.8 Other nonspecific abnormal finding of lung field (principal)
CPT/HCPCS: 71046

== ENCOUNTER → 2018-08-11 | Outpatient (CLI) | payer MEDICAID ==
[2017-04-25 13:12] VITALS: BMI 28.2
[2018-08-11 10:09] LABS: PLATELET COUNT, AUTOMATED 382 K/uL (150-450)
== END ==
LOC: LAB 09:00
PROVIDERS: ATTEND Nurse Practitioner Family
DX: E03.9 Hypothyroidism, unspecified (principal); E11.9 Type 2 diabetes mellitus without complications; N18.3 Chronic kidney disease, stage 3 (moderate); E78.5 Hyperlipidemia, unspecified; J44.9 Chronic obstructive pulmonary disease, unspecified; E55.9 Vitamin D deficiency, unspecified; D64.9 Anemia, unspecified
CPT/HCPCS: 36415; 82040; 82247; 82306; 82310; 82374; 82435; 82465; 82565; 82947; 83036; 83718; 84075; 84132; 84155; 84295; 84443; 84450; 84460; 84478; 84520; 85025

== ENCOUNTER 2018-09-19 14:07 | Emergency (ER) | payer MEDICAID ==
[2017-04-25 13:12] VITALS: Wt 79.0 kg
--- NOTE | 2018-09-19 14:22 | ER Report ---
History and Physical Time Seen By MD: 14:18 Hx. of Stated Complaint: CHEST PRESSURE THAT FEELS LIKE A BUBBLE IN HER CHEST. STARTED A COUPLE DAYS AGO, GETTING WORSE. NO SOB WITH IT. FEELS LIKE HER HEART IS RACING HPI/ROS CHIEF COMPLAINT: Chest pressure HISTORY OF PRESENT ILLNESS: Patient is a 58-year-old female here with complaints of midsternal chest pressure which has been present for the past several days, palpitations. Patient reports that she feels as if her heart is racing at times. Patient does have a history of COPD, on 2-3 L of nasal cannula oxygen. Patient is afebrile, hemodynamically stable at time of evaluation. Patient also complains of general malaise. REVIEW OF SYSTEMS: Constitutional: No fever, no chills. Eyes: No discharge. ENT: No sore throat. Cardiovascular: + Midsternal chest pressure + palpitations. Respiratory: No cough, + shortness of breath. Gastrointestinal: No abdominal pain, no vomiting. Genitourinary: No hematuria. Musculoskeletal: No back pain. Skin: No rashes. Neurological: No headache. Allergies: Coded Allergies: Penicillins (Verified Allergy, Intermediate, HIVES, 09/19/18) cephalexin (Verified Allergy, Mild, VOMITTING, 09/19/18) oxycodone HCl (Verified Allergy, Mild, FELT SHE WAS GOING BLIND, 09/19/18) Sulfa (Sulfonamide Antibiotics) (Verified Allergy, Unknown, 09/19/18) doxycycline (Verified Allergy, Unknown, increased icp, 09/19/18) ketorolac tromethamine (Verified Adverse Reaction, Unknown, FELT BAD, DIFF ICULTY SEEING, 09/19/18) Uncoded Allergies: ARTIFICIAL SWEETNERS (Allergy, Severe, MIGRAINES, 11/18/12) due to neurologist instructions ANTIDEPRESSANTS (Adverse Reaction, Intermediate, STRANGE BEHAVIOR, 11/18/12) STEROIDS (Adverse Reaction, Mild, CANNOT TAKE DUE TO HER PSEUDO TUMOR CEREBRI, 05/18/12) Home Meds Active Scripts Levothyroxine Sodium (LEVOTHYROXINE SODIUM) 100 Mcg Tablet, 100 MCG PO QDAY, #90 TAB 1 Refill Prov:PRESLEY BARTLETT MD 07/27/18 Levofloxacin 750 Mg Tab (LEVAQUIN 750 MG TAB) 750 Mg Tablet, 750 MG PO Q48H for 10 Days, #5 TAB Prov:MATT DEY PA-C 07/22/18 Sitagliptin Phosphate (JANUVIA) 50 Mg Tablet, 50 MG PO QDAY, #90 TAB 2 Refills Prov:PRESLEY BARTLETT MD 05/17/18 Doxycycline Hyclate (DOXYCYCLINE HYCLATE) 100 Mg Tablet, 100 MG PO QDAY, #7 TAB Prov:PRESLEY BARTLETT MD 05/17/18 Albuterol Sulfate 0.083% (ALBUTEROL SULFATE 0.083%) 2.5 Mg/3 Ml Vial.neb, 2.5 MG INH QID PRN for SHORTNESS OF BREATH, #60 INH Prov:PRESLEY BARTLETT MD 05/17/18 Diazepam (VALIUM) 2 Mg Tablet, 2 MG PO QHS PRN for ANXIETY, #30 TAB 0 Refills Prov:PRESLEY BARTLETT MD 05/17/18 Telmisartan (Telmisartan) 80 Mg Tablet, 1 TAB PO QDAY, #90 TAB 1 Refill Prov:PRESLEY BARTLETT MD 05/17/18 Atorvastatin Calcium (ATORVASTATIN CALCIUM) 40 Mg Tablet, 1 TAB PO QDAY, #90 TAB 1 Refill Prov:PRESLEY BARTLETT MD 03/08/18 Albuterol Sulfate (VENTOLIN HFA) 18 Gm Inh, 2 PUFF INH Q4-6H, #1 INH 6 Refills Prov:PRESLEY BARTLETT MD 12/20/17 Lancets (FREESTYLE LANCETS) 1 Each Each, BOX MC QDAY, #1 4 Refills Patient to test blood glucose once a day Prov:PRESLEY BARTLETT MD 05/12/17 Reported Medications Ergocalciferol (Vitamin D2) (VITAMIN D2) 50,000 Unit Capsule, 35764 UNIT PO Q30D, CAPSULE 05/31/17 Aspirin (ASPIRIN) 81 Mg Tab.chew, 81 MG PO QDAY, TAB.CHEW TAKE 1 TABLET BY MOUTH EVERY DAY 08/17/13 Hx Smoking: Yes Smoking Status: Current: Every Day Smoker, Light Tobacco Smoker Exposure to Second Hand Smoke?: Yes Hx Substance Use Disorder: No Hx Alcohol Use: Yes Constitutional Vital Sign - Last 24 Hours 09/19/18 09/19/18 14:10 14:24 Temp 99.7 Pulse 103 Resp 16 B/P (MAP) 132/67 Pulse Ox 89 O2 Delivery Nasal Cannula O2 Flow Rate 3.0 Physical Exam General Appearance: The patient is alert, has no immediate need for airway protection and no signs of toxicity. Anxious appearing, nontoxic Eyes: Pupils equal and round no pallor or injection. ENT, Mouth: Mucous membranes are moist. Respiratory: There are no retractions, lungs are clear to auscultation. Cardiovascular: Regular rate and rhythm. Gastrointestinal: Abdomen is soft and non tender, no masses, bowel sounds normal. Neurological: No focal neurological deficits, cranial nerves intact Skin: Warm and dry, no rashes. Musculoskeletal: Neck is supple non tender. Extremities are nontender, nonswollen and have full range of motion. DIFFERENTIAL DIAGNOSIS: After history and physical exam differential diagnosis was considered for chest pain including but not limited to myocardial ischemia, pericarditis pulmonary embolus, chest wall pain, pleural inflammation and pulmonary infectious causes. Medical Decision Making Data Points Result Diagram: 09/19/18 1418 09/19/18 1418 Laboratory Hematology Test 09/19/18 14:18 White Blood Count 10.0 k/uL (4.5-11.0) Red Blood Count 3.85 M/uL (4.17-5.56) L Hemoglobin 11.4 g/dL (12.0-16.0) L Hematocrit 33.7 % (34.0-47.0) L Mean Corpuscular Volume 87.5 fL (80.0-96.0) Mean Corpuscular Hemoglobin 29.6 pg (26.0-33.0) Mean Corpuscular Hemoglobin Concent 33.8 g/dL (32.0-36.0) Red Cell Distribution Width 15.2 % (11.5-14.5) H Platelet Count 399 K/uL (150-450) Mean Platelet Volume 8.0 fL (7.2-11.1) Neutrophils (%) (Auto) 74.9 % (39.4-72.5) H Lymphocytes (%) (Auto) 17.5 % (17.6-49.6) L Monocytes (%) (Auto) 4.7 % (4.1-12.4) Eosinophils (%) (Auto) 2.0 % (0.4-6.7) Basophils (%) (Auto) 0.9 % (0.3-1.4) Nucleated RBC Relative Count (auto) 0.0 /100WBC Neutrophils # (Auto) 7.5 K/uL (2.0-7.4) H Lymphocytes # (Auto) 1.8 K/uL (1.3-3.6) Monocytes # (Auto) 0.5 K/uL (0.3-1.0) Eosinophils # (Auto) 0.2 K/uL (0.0-0.5) Basophils # (Auto) 0.1 K/uL (0.0-0.1) Nucleated RBC Absolute Count (auto) 0.00 K/uL Chemistry Test 09/19/18 14:18 Sodium Level 141 mmol/L (137-145) Potassium Level 4.2 mmol/L (3.5-5.0) Chloride Level 100 mmol/L (98-107) Carbon Dioxide Level 26 mmol/L (22-31) Blood Urea Nitrogen 28 mg/dl (7-18) Creatinine 2.00 mg/dl (0.52-1.04) Glomerular Filtration Rate Calc 25.8 Random Glucose 162 mg/dl (75-110) Calcium Level 9.5 mg/dl (8.4-10.2) Total Bilirubin 0.3 mg/dl (0.2-1.3) Aspartate Amino Transf (AST/SGOT) 18 U/L (0-35) Alanine Aminotransferase (ALT/SGPT) 22 U/L (0-56) Alkaline Phosphatase 73 U/L (0-126) Troponin I < 0.012 ng/ml B-Type Natriuretic Peptide 16 pg/ml (0-100) Total Protein 8.0 g/dl (6.3-8.2) Albumin 4.5 g/dl (3.5-5.0) Coagulation Test 09/19/18 14:18 Prothrombin Time 12.2 seconds (12.0-14.4) Prothromb Time International Ratio 0.91 Activated Partial Thromboplast Time 33 seconds (23-35) EKG/Imaging EKG Interpretation 12 lead EKG: Normal sinus rhythm, ventricular rate 95, QTC 467, no ischemic changes or arrhythmias present Rhythm: normal sinus rhythm [employer]: normal QRS: normal ST segments: normal Imaging PATIENT NAME: Malu Mora : 1960 MR: [id number] V: [id number] EXAM DATE: [id number] ORDERING PHYSICIAN: RAFAEL MORILLO TECHNOLOGIST: Location: [facility] Patient: Malu Mora : 1960 Visit/Account:[id number] Date of Sevice: 09/19/2018 Technique: CHEST PA LAT HISTORY: Chest Pain COMPARISON: 08/10/2018 Findings: The lungs are clear. No pleural effusion or pneumothorax. The cardiomediastinal silhouette is unchanged. Impression: 1. No acute cardiopulmonary process. Report Dictated By: Arcenio Carter DO at 09/19/2018 3:20 PM ED Course/Re-evaluation ED Course Patient is a 58-year-old female here with complaints of chest pressure and rapid heart rate. Patient's EKG showed no ischemic findings. Chest x-ray showed no acute findings. Troponin was negative in the setting of several days of chest pressure. There is no leukocytosis, electrolytes were stable. Patient was oxygenating well on her baseline 3 L nasal cannula. I updated the patient regarding these findings and she voiced understanding. Patient was stable at time of discharge. Close PCP follow-up recommended. Return precautions provided. Decision to Disposition Date: Sep 19, 2018 Decision to Disposition Time: 15:41 Depart Departure Latest Vital Signs Vital Signs Date Time Temp Pulse Resp B/P (MAP) Pulse Ox O2 Delivery O2 Flow Rate FiO2 09/19/18 14:24 3.0 09/19/18 14:10 99.7 103 16 132/67 89 Nasal Cannula Impression: Primary Impression: Chest discomfort Condition: Improved Disposition: HOME OR SELF-CARE Referrals: TOMMY SNEED (PCP) Patient Instructions: Noncardiac Chest Pain (ED) Additional Instructions: Please follow-up with your primary care provider in next 24-48 hours. Please return promptly if she have recurrent chest pain, fevers, difficulty breathing, inability to keep down food or fluids. RAFAEL MORILLO DO Sep 19, 2018 14:22
[2018-09-19] MEDS ORDERED: NS(*) 0.9% 1000 ML BAG 1,000 ML IV ONE (14:31)
[2018-09-19] MEDS ORDERED: LORazepam 2 MG/ML VIAL IVP ONE (14:35)
[2018-09-19 14:44] LABS: PLATELET COUNT, AUTOMATED 399 K/uL (150-450)
[2018-09-19 15:00] LABS: INR 0.91
[2018-09-19 15:30] VITALS: BP 114/69
--- NOTE | 2018-09-19 15:31 | RADIOLOGY IMAGING REPORT ---
FACILITY: [facility] PATIENT NAME: Malu Mora : 1960 MR: [id number] V: [id number] EXAM DATE: ORDERING PHYSICIAN: RAFAEL MORILLO TECHNOLOGIST: Location: [facility] Patient: Malu Mora : 1960 Visit/Account:[id number] Date of Sevice: 09/19/2018 Technique: CHEST PA LAT HISTORY: Chest Pain COMPARISON: 08/10/2018 Findings: The lungs are clear. No pleural effusion or pneumothorax. The cardiomediastinal silhouett e is unchanged. Impression: 1. No acute cardiopulmonary process. Report Dictated By: Arcenio Carter DO at 09/19/2018 3:20 PM Report E-Signed By: Arcenio Carter DO at 09/19/2018 3:21 PM WSN:[id number]
--- NOTE | 2018-09-20 09:05 | EKG ---
FACILITY: [facility] PATIENT NAME: BETTY CALDERON : [id number] MR: [id number] V: [id number] EXAM DATE: ORDERING PHYSICIAN: RAFAEL MORILLO TECHNOLOGIST: Test Reason : Blood Pressure : / mmHG Vent. Rate : 095 BPM Atrial Rate : 095 BPM P-R Int : 190 ms QRS Dur : 092 ms QT Int : 372 ms P-R-T Axes : 079 079 069 degrees QTc Int : 467 ms Normal sinus rhythm Normal ECG When compared with ECG of 22-JUL-2018 13:05, No significant change was found Confirmed by Rolando Alexander ([id number]) on 09/20/2018 8:32:54 PM Referred By: Confirmed By:Rolando Caldwell
== END 2018-09-19 15:53 | disposition home or self-care (01) ==
LOC: ER 14:22
DX: R07.89 Other chest pain (principal); J44.9 Chronic obstructive pulmonary disease, unspecified; F17.210 Nicotine dependence, cigarettes, uncomplicated; Z79.82 Long term (current) use of aspirin; Z79.899 Other long term (current) drug therapy; Z99.81 Dependence on supplemental oxygen
CPT/HCPCS: 71046; 83880; 84484; 85025; 85610; 85730; 93005; 96361; 96374; 99284; J2060; J7030; 82040; 82247; 82310; 82374; 82435; 82565; 82947; 84075; 84132; 84155; 84295; 84450; 84460; 84520

== ENCOUNTER → 2018-10-10 | Outpatient (CLI) | payer MEDICAID ==
[2017-04-25 13:12] VITALS: BMI 28.2
--- NOTE | 2018-10-10 15:03 | RADIOLOGY IMAGING REPORT ---
FACILITY: [facility] PATIENT NAME: Malu Mora : 1960 MR: [id number] V: [id number] EXAM DATE: ORDERING PHYSICIAN: TOMMY SNEED TECHNOLOGIST: Location: [facility] Patient: Malu Mora : 1960 Visit/Account:[id number] Date of Sevice: 10/10/2018 DEXA Scan Clinical history: Hypothyroidism. Comparison: None available. LUMBAR SPINE: The bone mineral density (BMD) measured from L1-L4 correlates with a Z-score 1.6 and a T-score of 0.8 which is Normal as defined by the World Health Organization. The corresponding risk of fracture in the lumbar spine is Not increased compared with a young adult reference population. HIP: Bone mineral density (BMD) measured in the Left total hip region correlates with a Z-score -0.2 and a T-score of -0.9 which is Normal as defined by the World Health Organization. The corresponding risk of fracture in the hip is 1-2 times increased compared with a young adult reference population. T score left femoral neck -0.6 Bone mineral density (BMD) measured in the Femoral Neck region measures 0.955 g/cm2. Impression: 1. Lumbar spine: Normal. 2. Left Hip: Normal. 3. Femoral Neck: Bone Mineral Density is 0.955 g/cm2 The next DEXA scan of this patient should include the following sites: L1-L4 and the left hip. FRAX? WHO Fracture Risk Assessment Tool link: <http://www.shef.ac.uk/FRAX/tool.jsp?locationValue=9> PLEASE NOTE: 1) The World Health Organization defines low BMD as follows: T-score Normal > -1 Osteopenia < -1 and > -2.5 Osteoporosis < -2.5 without fractures Established osteoporosis < -2.5 with fractures 2) In general, you may wish to consider: Diagnosis Treatment Follow-up DEXA Normal BMD Prevention 2-3 years Osteopenia Prevention/therapy 1-2 years Osteoporosis Therapy Yearly 3) Fracture risk estimated from the T-score is more accurate for vertebral fractures (often spontane ous) than for hip fractures. Report Dictated By: Clau Coyne MD at 10/10/2018 2:54 PM Report E-Signed By: Clau Coyne MD at 10/10/2018 2:55 PM WSN:MONICA
--- NOTE | 2018-10-18 08:27 | RADIOLOGY IMAGING REPORT ---
FACILITY: [facility] PATIENT NAME: BETTY CALDERON : [id number] MR: [id number] V: [id number] EXAM DATE: [id number] ORDERING PHYSICIAN: TOMMY SNEED TECHNOLOGIST: Briseyda Mckenna PROCEDURE: BILATERAL DIGITAL SCREENING MAMMOGRAM WITH CAD ASSISTED INTERPRETATION & 3D TOMOSYNTHESIS REASON FOR STUDY: Screening FAMILY HISTORY OF BREAST CANCER: Paternal Grandmother FAMILY HISTORY OF OVARIAN CANCER: Paternal Grandmother BREAST PROCEDURES/TREATMENTS: Benign aspiration Right breast COMPARISON: 09/26/08 VIEWS OBTAINED: Bilateral 2D & 3D full field CC & MLO projections BREAST DENSITY: There are scattered areas of fibroglandular density throughout the breasts. MAMMOGRAM FINDINGS: The parenchymal pattern has remained stable allowing for difference in mammographic technique & patient positioning. DIAGNOSTIC CATEGORY 1--NEGATIVE. RECOMMENDATIONS: ROUTINE MAMMOGRAM AND CLINICAL EVALUATION. IMPRESSION: BIRADS 1: Negative. Dictated by: Clau Coyne M.D. on 10/14/2018 at 15:11 Transcribed by: GUILLE on 10/18/2018 at 7:11 Approved by: Clau Coyne M.D. on 10/18/2018 at 8:22 [facility]
== END ==
LOC: MAMO 02:56
PROVIDERS: ATTEND Nurse Practitioner Family
DX: Z13.820 Encounter for screening for osteoporosis (principal); Z12.31 Encounter for screening mammogram for malignant neoplasm of breast; E28.39 Other primary ovarian failure; Z80.3 Family history of malignant neoplasm of breast
CPT/HCPCS: 77063; 77067; 77080